=== PATIENT | female | born 1980 | race Caucasian/White ===

== ENCOUNTER 2018-09-28 12:20 | Emergency (ER) | payer BC, OTHER ==
--- OUTSIDE RECORDS SUMMARY | 2018-09-28 13:07 | XMS REPORT | Continuity of Care Document ---
:1980 External Reference #:[id number] Author Name Sheldon Moss N.P. Address [address] [facility] [address] [place] [address] Care Team Providers Name Role Phone Malathi Taylor MD Care Team Information Store Gift Wrap Associate Unavailable Payers Date Identification Numbers Payment Provider Subscriber Policy Number: [id number] [facility] [employer] Christopher Nicolas PayID: [id number] [address] [address] [place] [address] Expires: 2017 Policy Number: [id number] [employer] Christopher Nicolas PayID: [id number] [address] [place] [address] Advance Directives Description No Information Available Problems Active Problems Provider Date Morbid obesity Ramses Lilly [employer] Onset: 04/18/2015 Family History Date Family Member(s) Observation Comments Father No Current Problems Father 56 Mother due to Drug Overdose () - 2010 Mother due to At Age 51 () First Son No Current Problems First Son 11 First Brother No Current Problems First Brother 33 First Sister No Current Problems First Sister 24 Social History Type Date Description Comments Sex Unknown Marital Status Legal Status: ETOH Use Rarely consumes alcohol Tobacco Use Start: Unknown Patient has never smoked Smoking Status Reviewed: 12/13/16 Patient has never smoked Allergies, Adverse Reactions, Alerts Active Allergies Reaction Severity Comments Date Penicillins 06/04/2014 Medications Active Medications SIG Qnty Indications Ordering Date Provider Phendimetrazine 1 tab by mouth 90tabs E66.09 Malathi Taylor 09/19/2018 Tartrate three times a day Rula Boyle 35mg Tablets as needed Medical Compression wear compression 2units R60.0 [facility] Stockings/Female/15-20 stockings for 12hr M., M.D. MMHG/Knee/MD/Short per day and remove Misc for 12 hours. Vitamin D take 1 capsule by 1caps E55.9 [facility] leslye 09/10/2018 (Ergocalciferol) mouth Once A Month M., M.D. On The First [id number] Capsules Fenofibrate 1 by mouth every 90tabs E78.2 [facility] 09/10/2018 145mg Tablets day M., M.D. Xanax 1 tab by mouth 90tabs F41.9 [facility] 09/05/2018 0.25mg Tablets three times a day M., M.D. as needed for anxiety Cyclobenzaprine HCL 1 tab by mouth 90tabs M54.5 [facility] 08/20/2018 10mg three times a day M., M.D. Tablets as needed for muscle spasms M62.830 Phentermine HCL 1 tab by mouth 60tabs E66.09 Brandon, leslye Boyle, 06/05/2018 37.5mg twice a day M.D. Tablets Citalopram Hydrobromide Take One Tablet By 90tabs F41.9 BrandonMalathi crowe, 05/01/2018 Mouth Once Daily M.D. 20mg Tablets as Needed Citalopram Hydrobromide Take One Tablet By 90tabs F41.9 BrandonMalathi crowe, 03/06/2018 Mouth Once Daily M.D. 40mg Tablets Zolpidem Tartrate take 1 tablet by 30tabs F41.9 Brandon, leslye Boyle, 2017 10mg mouth at bedtime M.D. Tablets *maximum of one tablet daily* Anucort-HC [address] of rectum 24units BrandonMalathi marroquin, 06/21/2017 25mg Suppository twice a day as M.D. needed Sumatriptan Succinate 1 tab three times 14tabs G43.009 BrandonMalathi crowe, 100mg a day as needed M.D. Tablets Naproxen take 1 tablet by 60tabs [facility] 07/25/2016 500mg Tablets mouth twice a day M.D. as needed History Medications Buspirone HCL 1 tab by mouth 60tabs F41.9 [facility], [facility] 08/05/2018 - 15mg twice a day M., M.D. 09/04/2018 Tablets Bontril PDM 1 tab by mouth 90tabs E66.09 [facility], [facility] 05/22/2018 - 35mg three times a M., M.D. 06/05/2018 Tablets day Citalopram 1 by mouth every 30tabs F41.9 [facility], [facility] 01/24/2018 - Hydrobromide day M., M.D. 03/06/2018 20mg Tablets Citalopram 1 tab by mouth 30tabs F41.9 [facility], [facility] 01/10/2018 - Hydrobromide every day M., M.D. 01/24/2018 10mg Tablets Phentermine HCL take one tablet 60tabs K21.9 [facility] 09/13/2017 - 37.5mg by mouth two M., M.D. 05/22/2018 Tablets times daily *maximum of two tablets daily* R53.81 E66.09 Bontril PDM 1-2 tab by 90tabs E66.09 [facility] 10/12/2016 - 35mg mouth three M.D. 09/13/2017 Tablets times a day Phentermine HCL 1 tab by mouth 60tabs Z68.33 [facility] Natasha, 09/14/2016 - 37.5mg twice a day M.D. 10/12/2016 Tablets R53.81 E66.09 Bontril PDM 2 tab by mouth 180tabs Z68.33 [facility] ., 06/15/2016 - 35mg three times a M.D. 09/14/2016 Tablets day R53.81 E66.09 Phentermine HCL 1 tab by mouth 60tabs Z68.33 [facility] Natasha, 03/16/2016 - 37.5mg twice a day M.D. 06/15/2016 Tablets R53.81 E66.09 Bontril PDM 2 tab by mouth 180tabs Z68.33 [facility], [facility] 06/24/2015 - 35mg three times a M.D. 03/16/2016 Tablets day R53.81 E66.09 Ambien 1-2 tab by mouth 45tabs G47.00 [facility], [facility] 06/24/2015 - 10mg Tablets every night as M., M.D. 01/10/2018 needed Phentermine HCL 1 tab by mouth 60tabs Z68.33 [facility], [facility] 06/16/2015 - 37.5mg twice a day M., M.D. 06/24/2015 Tablets E66.09 Trazodone HCL 1-2 tab by mouth 60tabs G47.00 [facility], [facility] 06/16/2015 - 50mg at bedtime M., M.D. 06/24/2015 Tablets Bontril PDM 2 tab by mouth 180tabs Z68.33 [facility] 06/04/2014 - 35mg three times a day M., M.D. 06/16/2015 Tablets E66.09 Immunizations CPT Code Status Date Vaccine Reaction Lot # U-[id number] Given 02/01/2018 Influenza,Unspecified [id number] Given 02/04/2015 Flu Vaccine [id number] Given 02/23/2014 Flu Vaccine Pt received Flu Vaccine at her Pharmacy. Vital Signs Date Vital Result Comment 09/19/2018 2:53pm BP Systolic 124 mmHg BP Diastolic 80 mmHg Height 63.5 inches 5'3.50" Weight 226.00 lb BMI (Body Mass Index) 39.4 kg/m2 Heart Rate 95 /min Respiratory Rate 16 /min 09/10/2018 8:46am BP Systolic 126 mmHg BP Diastolic 70 mmHg Height 63.5 inches 5'3.50" Weight 226.00 lb BMI (Body Mass Index) 39.4 kg/m2 Heart Rate 105 /min Respiratory Rate 18 /min 09/05/2018 8:40am BP Systolic 118 mmHg BP Diastolic 70 mmHg Height 63.5 inches 5'3.50" Weight 220.00 lb BMI (Body Mass Index) 38.4 kg/m2 Heart Rate 108 /min Respiratory Rate 16 /min 08/05/2018 8:27am BP Systolic 128 mmHg BP Diastolic 70 mmHg Height 63.5 inches 5'3.50" Weight 205.00 lb BMI (Body Mass Index) 35.7 kg/m2 Heart Rate 86 /min Respiratory Rate 18 /min 07/08/2018 8:31am BP Systolic 128 mmHg BP Diastolic 78 mmHg Height 63.5 inches 5'3.50" Weight 200.00 lb BMI (Body Mass Index) 34.9 kg/m2 Heart Rate 85 /min Respiratory Rate 16 /min 06/05/2018 8:15am BP Systolic 128 mmHg BP Diastolic 72 mmHg Height 63.5 inches 5'3.50" Weight 190.00 lb BMI (Body Mass Index) 33.1 kg/m2 Heart Rate 92 /min Respiratory Rate 16 /min 05/01/2018 8:29am BP Systolic 118 mmHg BP Diastolic 68 mmHg Height 63.5 inches 5'3.50" Weight 185.00 lb BMI (Body Mass Index) 32.3 kg/m2 Heart Rate 102 /min Respiratory Rate 16 /min 04/01/2018 8:29am BP Systolic 118 mmHg BP Diastolic 72 mmHg Height 63.5 inches 5'3.50" Weight 190.00 lb BMI (Body Mass Index) 33.1 kg/m2 Heart Rate 83 /min Respiratory Rate 16 /min 03/06/2018 8:11am BP Systolic 124 mmHg BP Diastolic 70 mmHg Height 63.5 inches 5'3.50" Weight 190.00 lb BMI (Body Mass Index) 33.1 kg/m2 Heart Rate 89 /min Respiratory Rate 16 /min 01/24/2018 8:23am BP Systolic 124 mmHg BP Diastolic 67 mmHg Height 63.5 inches 5'3.50" Weight 186.00 lb BMI (Body Mass Index) 32.4 kg/m2 Heart Rate 79 /min Respiratory Rate 16 /min 01/10/2018 8:19am BP Systolic 124 mmHg BP Diastolic 87 mmHg Height 63.5 inches 5'3.50" Weight 189.00 lb BMI (Body Mass Index) 33.0 kg/m2 Heart Rate 74 /min Respiratory Rate 16 /min 12/11/2017 8:02am BP Systolic 110 mmHg BP Diastolic 72 mmHg Height 63.5 inches 5'3.50" Weight 191.00 lb BMI (Body Mass Index) 33.3 kg/m2 Heart Rate 42 /min Respiratory Rate 16 /min 11/11/2017 8:06am BP Systolic 118 mmHg BP Diastolic 70 mmHg Height 63.5 inches 5'3.50" Weight 187.31 lb BMI (Body Mass Index) 32.7 kg/m2 Heart Rate 101 /min Respiratory Rate 16 /min 10/14/2017 8:07am BP Systolic 118 mmHg BP Diastolic 70 mmHg Height 63.5 inches 5'3.50" Weight 195.00 lb BMI (Body Mass Index) 34.0 kg/m2 Heart Rate 83 /min Respiratory Rate 18 /min 09/13/2017 8:03am BP Systolic 110 mmHg BP Diastolic 72 mmHg Height 63.5 inches 5'3.50" Weight 196.00 lb BMI (Body Mass Index) 34.2 kg/m2 Heart Rate 90 /min Respiratory Rate 18 /min 08/12/2017 8:06am BP Systolic 126 mmHg BP Diastolic 70 mmHg Height 63.5 inches 5'3.50" Weight 195.00 lb BMI (Body Mass Index) 34.0 kg/m2 Heart Rate 67 /min Respiratory Rate 18 /min 07/15/2017 8:04am BP Systolic 125 mmHg BP Diastolic 78 mmHg Height 63.5 inches 5'3.50" Weight 193.00 lb BMI (Body Mass Index) 33.6 kg/m2 Heart Rate 72 /min Respiratory Rate 18 /min 06/12/2017 8:28am BP Systolic 118 mmHg BP Diastolic 70 mmHg Height 63.5 inches 5'3.50" Weight 189.00 lb BMI (Body Mass Index) 33.0 kg/m2 Heart Rate 68 /min Respiratory Rate 18 /min 05/10/2017 8:40am BP Systolic 118 mmHg BP Diastolic 72 mmHg Height 63.5 inches 5'3.50" Weight 189.00 lb BMI (Body Mass Index) 33.0 kg/m2 Heart Rate 84 /min Respiratory Rate 16 /min 04/12/2017 8:33am BP Systolic 110 mmHg BP Diastolic 62 mmHg Height 63.5 inches 5'3.50" Weight 200.00 lb BMI (Body Mass Index) 34.9 kg/m2 Heart Rate 79 /min Respiratory Rate 18 /min 02/11/2017 8:35am BP Systolic 110 mmHg BP Diastolic 68 mmHg Height 63.5 inches 5'3.50" Weight 194.00 lb BMI (Body Mass Index) 33.8 kg/m2 Heart Rate 81 /min Respiratory Rate 16 /min 01/11/2017 8:31am BP Systolic 126 mmHg BP Diastolic 72 mmHg Height 63.5 inches 5'3.50" Weight 188.00 lb BMI (Body Mass Index) 32.8 kg/m2 Heart Rate 88 /min Respiratory Rate 16 /min 12/13/2016 8:25am BP Systolic 100 mmHg BP Diastolic 62 mmHg Height 63.5 inches 5'3.50" Weight 190.00 lb BMI (Body Mass Index) 33.1 kg/m2 Heart Rate 83 /min Respiratory Rate 16 /min 11/12/2016 8:33am BP Systolic 98 mmHg BP Diastolic 60 mmHg Height 63.5 inches 5'3.50" Weight 194.00 lb BMI (Body Mass Index) 33.8 kg/m2 Heart Rate 89 /min Respiratory Rate 16 /min 10/12/2016 11:25am BP Systolic 102 mmHg BP Diastolic 62 mmHg Height 63.5 inches 5'3.50" Weight 197.00 lb BMI (Body Mass Index) 34.3 kg/m2 Heart Rate 64 /min Respiratory Rate 16 /min 09/14/2016 8:31am BP Systolic 102 mmHg BP Diastolic 60 mmHg Height 63.5 inches 5'3.50" Weight 194.00 lb BMI (Body Mass Index) 33.8 kg/m2 Heart Rate 84 /min Respiratory Rate 16 /min 08/16/2016 4:11pm BP Systolic 120 mmHg BP Diastolic 72 mmHg Height 63.5 inches 5'3.50" Weight 193.00 lb BMI (Body Mass Index) 33.6 kg/m2 Heart Rate 82 /min Respiratory Rate 18 /min 07/16/2016 8:40am BP Systolic 115 mmHg BP Diastolic 78 mmHg Height 63.5 inches 5'3.50" Weight 195.00 lb BMI (Body Mass Index) 34.0 kg/m2 Heart Rate 80 /min Respiratory Rate 18 /min 06/15/2016 8:32am BP Systolic 118 mmHg BP Diastolic 72 mmHg Height 63.5 inches 5'3.50" Weight 191.00 lb BMI (Body Mass Index) 33.3 kg/m2 Heart Rate 73 /min Respiratory Rate 18 /min 05/18/2016 8:20am BP Systolic 110 mmHg BP Diastolic 70 mmHg Height 63.5 inches 5'3.50" Weight 189.00 lb BMI (Body Mass Index) 33.0 kg/m2 Heart Rate 95 /min Respiratory Rate 18 /min 04/17/2016 8:29am BP Systolic 118 mmHg BP Diastolic 68 mmHg Weight 193.00 lb Heart Rate 62 /min Respiratory Rate 18 /min 03/16/2016 4:36pm BP Systolic 108 mmHg BP Diastolic 82 mmHg Height 63.5 inches 5'3.50" Weight 186.00 lb BMI (Body Mass Index) 32.4 kg/m2 Heart Rate 74 /min Respiratory Rate 16 /min 02/17/2016 8:29am BP Systolic 114 mmHg BP Diastolic 64 mmHg Height 63.5 inches 5'3.50" Weight 191.00 lb BMI (Body Mass Index) 33.3 kg/m2 Heart Rate 89 /min Respiratory Rate 20 /min 01/17/2016 11:17am BP Systolic 116 mmHg BP Diastolic 68 mmHg Height 63.5 inches 5'3.50" Weight 193.00 lb BMI (Body Mass Index) 33.6 kg/m2 Heart Rate 76 /min Respiratory Rate 20 /min 12/16/2015 8:33am BP Systolic 118 mmHg BP Diastolic 68 mmHg Height 63.5 inches 5'3.50" Weight 186.00 lb BMI (Body Mass Index) 32.4 kg/m2 Heart Rate 84 /min Respiratory Rate 20 /min 11/16/2015 2:01pm BP Systolic 118 mmHg BP Diastolic 64 mmHg Height 63.5 inches 5'3.50" Weight 187.00 lb BMI (Body Mass Index) 32.6 kg/m2 Heart Rate 78 /min Respiratory Rate 20 /min 10/17/2015 8:42am BP Systolic 124 mmHg BP Diastolic 76 mmHg Height 63.5 inches 5'3.50" Weight 187.00 lb BMI (Body Mass Index) 32.6 kg/m2 Heart Rate 74 /min Respiratory Rate 19 /min 09/16/2015 8:39am BP Systolic 111 mmHg BP Diastolic 77 mmHg Height 63.5 inches 5'3.50" Weight 193.00 lb BMI (Body Mass Index) 33.6 kg/m2 Heart Rate 75 /min Respiratory Rate 18 /min 08/19/2015 9:25am BP Systolic 111 mmHg BP Diastolic 73 mmHg Height 63.5 inches 5'3.50" Weight 195.00 lb BMI (Body Mass Index) 34.0 kg/m2 Heart Rate 65 /min Respiratory Rate 18 /min 07/21/2015 8:59am BP Systolic 115 mmHg BP Diastolic 74 mmHg Height 63.5 inches 5'3.50" Weight 197.00 lb BMI (Body Mass Index) 34.3 kg/m2 Heart Rate 75 /min Body Temperature 98.2 F Respiratory Rate 18 /min 06/24/2015 2:02pm BP Systolic 117 mmHg BP Diastolic 82 mmHg Height 63.5 inches 5'3.50" Weight 199.00 lb BMI (Body Mass Index) 34.7 kg/m2 Heart Rate 101 /min Body Temperature 96.8 F Respiratory Rate 18 /min 06/16/2015 11:30am BP Systolic 113 mmHg BP Diastolic 79 mmHg Height 63.5 inches 5'3.50" Weight 198.00 lb BMI (Body Mass Index) 34.5 kg/m2 Heart Rate 85 /min Respiratory Rate 18 /min 05/20/2015 8:43am BP Systolic 106 mmHg BP Diastolic 76 mmHg Height 63.5 inches 5'3.50" Weight 203.00 lb BMI (Body Mass Index) 35.4 kg/m2 Heart Rate 62 /min Respiratory Rate 18 /min 04/15/2015 8:32am BP Systolic 101 mmHg BP Diastolic 74 mmHg Height 63.5 inches 5'3.50" Weight 199.00 lb BMI (Body Mass Index) 34.7 kg/m2 Heart Rate 57 /min Respiratory Rate 18 /min 03/16/2015 8:59am BP Systolic 110 mmHg BP Diastolic 77 mmHg Height 63.5 inches 5'3.50" Weight 195.00 lb BMI (Body Mass Index) 34.0 kg/m2 Heart Rate 78 /min Respiratory Rate 18 /min 02/18/2015 9:24am BP Systolic 112 mmHg BP Diastolic 78 mmHg Height 63.5 inches 5'3.50" Weight 200.00 lb BMI (Body Mass Index) 34.9 kg/m2 Heart Rate 64 /min Respiratory Rate 18 /min 01/18/2015 11:30am BP Systolic 110 mmHg BP Diastolic 70 mmHg Height 63.5 inches 5'3.50" Weight 187.00 lb BMI (Body Mass Index) 32.6 kg/m2 Heart Rate 66 /min Respiratory Rate 15 /min 12/14/2014 8:36am BP Systolic 108 mmHg BP Diastolic 75 mmHg Height 63.5 inches 5'3.50" Weight 188.00 lb BMI (Body Mass Index) 32.8 kg/m2 Heart Rate 73 /min Respiratory Rate 16 /min 11/15/2014 10:44am BP Systolic 102 mmHg BP Diastolic 70 mmHg Height 63.5 inches 5'3.50" Weight 194.00 lb BMI (Body Mass Index) 33.8 kg/m2 Heart Rate 72 /min Respiratory Rate 16 /min 10/05/2014 11:34am BP Systolic 123 mmHg BP Diastolic 85 mmHg Height 63.5 inches 5'3.50" Weight 192.00 lb BMI (Body Mass Index) 33.5 kg/m2 Heart Rate 87 /min Respiratory Rate 16 /min 09/01/2014 4:28pm BP Systolic 114 mmHg BP Diastolic 75 mmHg Height 63.5 inches 5'3.50" Weight 188.00 lb BMI (Body Mass Index) 32.8 kg/m2 Heart Rate 76 /min Respiratory Rate 16 /min 07/30/2014 8:35am BP Systolic 106 mmHg BP Diastolic 74 mmHg Height 63.5 inches 5'3.50" Weight 188.00 lb BMI (Body Mass Index) 32.8 kg/m2 Heart Rate 59 /min Respiratory Rate 15 /min 07/02/2014 8:49am BP Systolic 115 mmHg BP Diastolic 83 mmHg Height 63.5 inches 5'3.50" Weight 183.00 lb BMI (Body Mass Index) 31.9 kg/m2 Heart Rate 99 /min Respiratory Rate 15 /min 06/04/2014 10:50am BP Systolic 121 mmHg BP Diastolic 82 mmHg Height 63.5 inches 5'3.50" Weight 194.00 lb BMI (Body Mass Index) 33.8 kg/m2 Heart Rate 65 /min Respiratory Rate 16 /min Results Test Date Facility Test Result H/L Range Note Laboratory test 09/05/2018 [facility] 25 Hydroxy 17 ng/mL Low (31-100) 1 finding 113 [facility] Vit D @ (047)- - TSH,Ultrasensitive @ 1.300 mIU/L (0.360-4.170) Free Thyroxine @ 0.86 ng/dL (0.76-1.46) Hemoglobin A1c 09/05/2018 [facility] Hemoglobin A1c @ 5.1 % (4.0-6.0) 2 113 [facility] (755)- - Est Average Glucose 100 mg/dL CBC With Diff 09/05/2018 [facility] WBC 6.0 10*3/uL (4.1-11.0) 113 [facility] ANTHON[facility] (607)- - RBC 4.58 10*6/uL (4.00-5.40) HGB 12.9 g/dL (12.0-16.0) HCT 38.7 % (36.0-47.0) MCV 84.5 fL (80.0-95.0) MCH 28.1 pg (27.0-32.0) MCHC 33.3 g/dL (32.0-36.0) RDW 13.8 % (10.5-14.5) PLT 222 10*3/uL (150-450) MPV 8.3 fL (7.1-10.7) Neut % 68.1 % (35.0-75.0) Lymph % 25.2 % (16.0-52.0) [place] % 4.7 % (0.0-8.0) Eos % 1.5 % (0.0-5.0) Baso % 0.5 % (0.0-4.0) Neut # 4.1 10*3/uL (1.8-7.7) Lymph # 1.5 10*3/uL (1.2-4.8) [place] # 0.3 10*3/uL (0.0-0.8) Eos # 0.1 10*3/uL (0.0-0.5) Baso # 0.0 10*3/uL (0.0-0.2) CMP 09/05/2018 [facility] Sodium 139 mmol/L (136-145) [facility] (607)- - Potassium 4.2 mmol/L (3.6-5.2) Chloride 108 mmol/L (100-108) Co2 24 mmol/L (22-31) Anion Gap 7 mmol/L (7-16) Urea Nitrogen 14 mg/dL (7-24) Creatinine 0.90 mg/dL (0.60-1.00) BUN/Creat Ratio 15.6 RATIO (10.0-20.0) Glucose 94 mg/dL (70-99) Calcium 8.6 mg/dL (8.4-10.2) Total Protein 7.1 g/dL (6.4-8.2) Albumin 3.4 g/dL Low (3.5-4.6) Globulin 3.7 g/dL (2.7-4.3) Alb/Glob Ratio 0.9 RATIO Alkaline Phosphatase 96 U/L (45-117) Bilirubin,Total 0.3 mg/dL (0.0-1.0) Ast (Sgot) 16 U/L (11-39) Alt (SGPT) 25 U/L (12-78) GFR >60 ml/min/1.73m2 (>59) GFR ( Amer) >60 ml/min/1.73m2 (>59) GFR Interpretation <SEE NOTE> 3 Laboratory test 09/05/2018 [facility] Uric Acid 5.1 mg/dL (2.6-6.0) finding 113 [facility] (607)- - Rheumatoid Factor @ <15 IU/mL (0-15) C Reactive Protein @ 1.1 mg/dL High (0.0-0.5) Esr 23 mm/h High (0-20) Lipid 09/05/2018 [facility] Cholesterol @ 189 mg/dL (0-200) 113 [employer] [facility] (607)- - Triglyceride @ 248 mg/dL High (30-200) HDL Cholesterol @ 53 mg/dL (>40) 4 Chol/HDL Ratio 3.6 RATIO 5 LDL Chol (Calc) 86 mg/dL (<130) 6 Ethyl Glucuronide 01/24/2018 [facility] Ethyl Glucuronide Negative ng/mL N 500 7 PDF SEE IMAGE Laboratory test finding 01/24/2018 [facility] Tramadol Negative ng/mL N 5 8 Gabapentin Negative ng/mL N 100 9 Zolpidem 22 Positive Cons <SEE NOTE> ng/mL N 10 10 Phentermine Positive >5000 C <SEE NOTE> ng/mL N 50 11 Citalopram/Escitalopram Positive >500 Co <SEE NOTE> ng/mL N 5 12 Urine DRG SCR 01/24/2018 [facility] Amphetamine NEGATIVE N 1000 (12PNL-PM) Barbiturate NEGATIVE N 200 Benzodiazepine NEGATIVE N 200 Buprenorphine NEGATIVE N 15 Cannabinoid NEGATIVE N 50 Cocaine NEGATIVE N 300 Methadone NEGATIVE N 300 Opiate NEGATIVE N 300 Oxycodone NEGATIVE N 300 Phencyclidine NEGATIVE N 25 13 Cocaine Panel By 01/24/2018 [facility] Benzoylecgonine Negative ng/mL N 50 14 LC/MS/MS (Cocaine) Amphetamine Panel 01/24/2018 [facility] Amphetamine Negative ng/ mL N 50 By LC/MS/MS Methamphetamine Negative ng/mL N 50 Mdma (Ecstasy) Negative ng/mL N 50 Mda Negative ng/ml N 50 Mdea Negative ng/mL N 50 15 Specimen Validity 01/24/2018 [facility] Creatinine, Urine 99 mg/ dL N >20 Panel Color YELLOW N Yellow pH 6.6 N 5.0-8.0 Specific [place] 1.022 N 1.001-1.035 16 Opiates Panel By 01/24/2018 [facility] 6-Qamar (Heroin Negative ng/ mL N 5 LC/MS/MS Metabolite) Codeine Negative ng/mL N 50 Hydrocodone Negative ng/mL N 50 Hydromorphone Negative ng/mL N 50 Morphine Negative ng/mL N 50 Norhydrocodone Negative ng/mL N 50 Noroxycodone Negative ng/mL N 50 Noroxymorphone Negative ng/mL N 50 Oxycodone Negative ng/mL N 50 Oxymorphone Negative ng/mL N 50 17 Methadone Panel By 01/24/2018 [facility] Eddp Negative ng/mL N 10 LC/MS/MS Methadone Negative ng/mL N 10 18 Buprenorphine Panel By 01/24/2018 [facility] Buprenorphine Negative ng/mL N 5 LC/MS/MS Naloxone Negative ng/mL N 10 Norbuprenorphine Negative ng/mL N 5 19 Benzodiazepines 01/24/2018 [facility] 2-Hydroxyethylflurazepam Negative N 10 Panel By LC/MS/MS ng/mL 7-Aminoclonazepam Negative ng/mL N 10 Alprazolam Negative ng/mL N 10 Chlordiazepoxide Negative ng/mL N 10 Clonazepam Negative ng/mL N 10 Desalkylflurazepam Negative ng/mL N 10 Diazepam Negative ng/mL N 10 Lorazepam Negative ng/mL N 10 Midazolam Negative ng/ml N 10 Nordiazepam Negative ng/mL N 10 Alpha-hydroxyalprazolam Negative ng/mL N 10 Alpha-Hydroxymidazolam Negative ng/mL N 10 Alpha-Hydroxytriazolam Negative ng/mL N 10 Oxazepam Negative ng/mL N 10 Prazepam Negative ng/mL N 10 Temazepam Negative ng/mL N 10 20 Barbiturates Panel By 01/24/2018 [facility] Butalbital Negative ng/mL N 100 LC/MS/MS Pentobarbital Negative ng/mL N 100 Phenobarbital Negative ng/mL N 100 Secobarbital Negative ng/mL N 100 21 Antidepressants Panel 01/24/2018 [facility] Amitriptyline Negative ng/mL N 20 By LC/MS/MS Clomipramine Negative ng/mL N 20 Desipramine Negative ng/mL N 20 Doxepin Negative ng/mL N 20 Fluoxetine Negative ng/mL N 20 Imipramine Negative ng/mL N 20 Norclomipramine Negative ng/mL N 20 Nordoxepin Negative ng/mL N 20 Nortriptyline Negative ng/mL N 20 Sertraline Negative ng/mL N 20 Trimipramine Negative ng/mL N 20 22 Urine Drug [place] 01/24/2018 [facility] [id number] Negative ng/mL N 5 23 Buprenorphine Panel 01/10/2018 [facility] Buprenorphine Negative ng/mL N 5 24 By LC/MS/MS Naloxone Negative ng/mL N 10 Norbuprenorphine Negative ng/mL N 5 25 Methadone Panel By 01/10/2018 [facility] Eddp Negative ng/mL N 10 LC/MS/MS Methadone Negative ng/mL N 10 26 Opiates Panel By 01/10/2018 [facility] 6-Qamar (Heroin Negative ng/ mL N 5 LC/MS/MS Metabolite) Codeine Negative ng/mL N 50 Hydrocodone Negative ng/mL N 50 Hydromorphone Negative ng/mL N 50 Morphine Negative ng/mL N 50 Norhydrocodone Negative ng/mL N 50 Noroxycodone Negative ng/mL N 50 Noroxymorphone Negative ng/mL N 50 Oxycodone Negative ng/mL N 50 Oxymorphone Negative ng/mL N 50 27 Specimen Validity 01/10/2018 [facility] Creatinine, Urine 236 mg/ dL N >20 Panel Color YELLOW N Yellow pH 5.5 N 5.0-8.0 Specific [place] 1.031 N 1.001-1.035 28 Amphetamine Panel By 01/10/2018 [facility] Amphetamine Negative ng/mL N 50 LC/MS/MS Methamphetamine Negative ng/mL N 50 Mdma (Ecstasy) Negative ng/mL N 50 Mda Negative ng/ml N 50 Mdea Negative ng/mL N 50 29 Cocaine Panel 01/10/2018 [facility] Benzoylecgonine Negative N 50 30 By LC/MS/MS (Cocaine) ng/mL Urine DRG SCR 01/10/2018 [facility] Amphetamine POSITIVE Abnormal 1000 (12PNL-PM) Barbiturate NEGATIVE N 200 Benzodiazepine NEGATIVE N 200 Buprenorphine NEGATIVE N 15 Cannabinoid NEGATIVE N 50 Cocaine NEGATIVE N 300 Methadone NEGATIVE N 300 Opiate NEGATIVE N 300 Oxycodone NEGATIVE N 300 Phencyclidine NEGATIVE N 25 31 Laboratory test finding 01/10/2018 [facility] Tramadol Negative ng/mL N 5 32 Gabapentin Negative ng/mL N 100 33 Phentermine Positive >5000 C <SEE NOTE> ng/mL N 50 34 Ethyl Glucuronide 01/10/2018 [facility] Ethyl Glucuronide Negative ng/mL N 500 PDF SEE IMAGE Laboratory test 01/10/2018 [facility] Zolpidem 56 Positive N 10 35 finding Cons <SEE NOTE> ng/mL Lipid 01/10/2018 [facility] Cholesterol @ 174 mg/dL (0-200) 113 [facility] (607)- - Triglyceride @ 128 mg/dL (30-200) HDL Cholesterol @ 52 mg/dL (>40) 36 Chol/HDL Ratio 3.3 RATIO 37 LDL Chol (Calc) 96 mg/dL (<130) 38 CMP 01/10/2018 [facility] Sodium 139 mmol/L (136-145) 113 [employer] (607)- - Potassium 4.2 mmol/L (3.6-5.2) Chloride 106 mmol/L (100-108) Co2 23 mmol/L (22-31) Anion Gap 10 mmol/L (7-16) Urea Nitrogen 12 mg/dL (7-24) Creatinine 0.99 mg/dL (0.60-1.00) BUN/Creat Ratio 12.1 RATIO (10.0-20.0) Glucose 79 mg/dL (70-99) Calcium 9.2 mg/dL (8.4-10.2) Total Protein 7.4 g/dL (6.4-8.2) Albumin 3.9 g/dL (3.5-4.6) Globulin 3.5 g/dL (2.7-4.3) Alb/Glob Ratio 1.1 RATIO Alkaline Phosphatase 72 U/L (45-117) Bilirubin,Total 0.7 mg/dL (0.0-1.0) Ast (Sgot) 12 U/L (11-39) Alt (SGPT) 16 U/L (12-78) GFR >60 ml/min/1.73m2 (>59) GFR ( Amer) >60 ml/min/1.73m2 (>59) GFR Interpretation <SEE NOTE> 39 CBC With Diff 01/10/2018 [facility] WBC 5.9 10*3/uL (4.1-11.0) 113 NAOMI ANTHONY (60)- - RBC 4.87 10*6/uL (4.00-5.40) HGB 13.8 g/dL (12.0-16.0) HCT 41.0 % (36.0-47.0) MCV 84.3 fL (80.0-95.0) MCH 28.4 pg (27.0-32.0) MCHC 33.7 g/dL (32.0-36.0) RDW 13.6 % (10.5-14.5) PLT 191 10*3/uL (150-450) MPV 9.4 fL (7.1-10.7) Neut % 64.6 % (35.0-75.0) Lymph % 29.5 % (16.0-52.0) [place] % 4.7 % (0.0-8.0) Eos % 0.6 % (0.0-5.0) Baso % 0.6 % (0.0-4.0) Neut # 3.8 10*3/uL (1.8-7.7) Lymph # 1.8 10*3/uL (1.2-4.8) [place] # 0.3 10*3/uL (0.0-0.8) Eos # 0.0 10*3/uL (0.0-0.5) Baso # 0.0 10*3/uL (0.0-0.2) Laboratory test 01/10/2018 [facility] Vitamin B12 @ 268 pg/mL (193-986 ) finding 113 NAOMI ANTHONY (400)- - Folate @ 5.0 ng/mL (3.1-17.5) Hemoglobin A1c 01/10/2018 [facility] Hemoglobin A1c @ 5.2 % (4.0-6.0) 40 113 NAOMI ANTHONY (022)- - Est Average Glucose 103 mg/dL Laboratory test 01/10/2018 [facility] TSH,Ultrasensitive 0.780 (0.360- 4.170) finding 113 INNOVATION RAJ @ mIU/L (607)- - Benzodiazepines 01/10/2018 [facility] 2-Hydroxyethylflura Negative N 10 Panel By LC/MS/MS zepam ng/mL 7-Aminoclonazepam Negative ng/mL N 10 Alprazolam Negative ng/mL N 10 Chlordiazepoxide Negative ng/mL N 10 Clonazepam Negative ng/mL N 10 Desalkylflurazepam Negative ng/mL N 10 Diazepam Negative ng/mL N 10 Lorazepam Negative ng/mL N 10 Midazolam Negative ng/ml N 10 Nordiazepam Negative ng/mL N 10 Alpha-hydroxyalprazolam Negative ng/mL N 10 Alpha-Hydroxymidazolam Negative ng/mL N 10 Alpha-Hydroxytriazolam Negative ng/mL N 10 Oxazepam Negative ng/mL N 10 Prazepam Negative ng/mL N 10 Temazepam Negative ng/mL N 10 41 Barbiturates Panel By 01/10/2018 [facility] Butalbital Negative ng/mL N 100 LC/MS/MS Pentobarbital Negative ng/mL N 100 Phenobarbital Negative ng/mL N 100 Secobarbital Negative ng/mL N 100 42 Antidepressants Panel 01/10/2018 [facility] Amitriptyline Negative ng/mL N 20 By LC/MS/MS Clomipramine Negative ng/mL N 20 Desipramine Negative ng/mL N 20 Doxepin Negative ng/mL N 20 Fluoxetine Negative ng/mL N 20 Imipramine Negative ng/mL N 20 Norclomipramine Negative ng/mL N 20 Nordoxepin Negative ng/mL N 20 Nortriptyline Negative ng/mL N 20 Sertraline Negative ng/mL N 20 Trimipramine Negative ng/mL N 20 43 Urine Drug 01/10/2018 [facility] [id number] Negative N 5 44 [place] ng/mL Laboratory test 01/10/2018 [facility] 25 Hydroxy Vit D @ 31 ng/mL (31- 10 45 finding 113 INNOVATION RAJ 0) (607)- - Esr 20 mm/h (0-20) Iron Panel 01/10/2018 [facility] Iron,Total @ 90 g/dL (35-150) 113 INNOVATION RAJ (607)- - Uibc @ 220 g/dL (130-375) Tibc @ 310 g/dL (250-450) % Saturation 29 % (12-50) Basic Metabolic Panel 08/16/2016 [facility] Sodium 134 mmol/L N 133- 145 Potassium 3.8 mmol/L N 3.5-5.0 Chloride 102 mmol/L N 101-111 Co2 Carbon Dioxide 25 mmol/L N 22-32 Anion Gap 7 mmol/L N 2-11 Glucose 81 mg/dL N 70-100 Blood Urea Nitrogen 12 mg/dL N 6-24 Creatinine 0.85 mg/dL N 0.51-0.95 BUN/Creatinine Ratio 14.1 N 8-20 Calcium 9.3 mg/dL N 8.6-10.3 Egfr Non- 75.7 N >60 Egfr 97.3 N >60 46 CBC Auto Diff 08/16/2016 [facility] White Blood Count 8.6 10^3/uL N 3.5-10.8 Red Blood Count 4.83 10^6/uL N 4.0-5.4 Hemoglobin 13.3 g/dL N 12.0-16.0 Hematocrit 40 % N 35-47 Mean Corpuscular Volume 83 fL N 80-97 Mean Corpuscular Hemoglobin 28 pg N 27-31 Mean Corpuscular HGB Conc 33 g/dL N 31-36 Red Cell Distribution Width 13 % N 10.5-15 Platelet Count 200 10^3/uL N 150-450 Mean Platelet Volume 10 um3 N 7.4-10.4 Abs Neutrophils 5.6 10^3/uL N 1.5-7.7 Abs Lymphocytes 2.6 10^3/uL N 1.0-4.8 Abs Monocytes 0.3 10^3/uL N 0-0.8 Abs Eosinophils 0 10^3/uL N 0-0.6 Abs Basophils 0 10^3/uL N 0-0.2 Abs Nucleated RBC 0 10^3/uL N Granulocyte % 65.1 % N 38-83 Lymphocyte % 30.5 % N 25-47 Monocyte % 3.8 % N 1-9 Eosinophil % 0.3 % N 0-6 Basophil % 0.3 % N 0-2 Nucleated Red Blood Cells % 0 N Laboratory test 08/16/2016 [facility] Creatinine Random 335.09 mg/dL N 47 finding Urine Laboratory test 07/21/2015 [facility] TSH (Thyroid Stim 0.83 ?IU/mL N 0.34-5. finding Horm) 60 CBC Auto Diff 07/21/2015 [facility] White Blood Count 4.8 10^3/uL N 3.5-10. 8 Red Blood Count 4.40 10^6/uL N 4.0-5.4 Hemoglobin 13.0 g/dL N 12.0-16.0 Hematocrit 40 % N 35-47 Mean Corpuscular Volume 90 fL N 80-97 Mean Corpuscular Hemoglobin 29 pg N 27-31 Mean Corpuscular HGB Conc 33 g/dL N 31-36 Red Cell Distribution Width 13 % N 10.5-15 Platelet Count 195 10^3/uL N 150-450 Mean Platelet Volume 9 um3 N 7.4-10.4 Abs Neutrophils 3.2 10^3/uL N 1.5-7.7 Abs Lymphocytes 1.3 10^3/uL N 1.0-4.8 Abs Monocytes 0.3 10^3/uL N 0-0.8 Abs Eosinophils 0 10^3/uL N 0-0.6 Abs Basophils 0 10^3/uL N 0-0.2 Abs Nucleated RBC 0 10^3/uL N Granulocyte % 65.7 % N 38-83 Lymphocyte % 26.4 % N 25-47 Monocyte % 6.8 % N 1-9 Eosinophil % 0.7 % N 0-6 Basophil % 0.4 % N 0-2 Nucleated Red Blood Cells % 0 N Comp Metabolic Panel 07/21/2015 [facility] Sodium 137 mmol/L N 133- 145 Potassium 4.0 mmol/L N 3.5-5.0 Chloride 103 mmol/L N 101-111 Co2 Carbon Dioxide 26 mmol/L N 22-32 Anion Gap 8 mmol/L N 2-11 Glucose 81 mg/dL N 70-100 Blood Urea Nitrogen 14 mg/dL N 6-24 Creatinine 0.95 mg/dL N 0.51-0.95 BUN/Creatinine Ratio 14.7 N 8-20 Calcium 9.4 mg/dL N 8.6-10.3 Total Protein 7.4 g/dL N 6.4-8.9 Albumin 4.5 g/dL N 3.2-5.2 Globulin 2.9 g/dL N 2-4 Albumin/Globulin Ratio 1.6 N 1-3 Total Bilirubin 0.50 mg/dL N 0.2-1.0 Alkaline Phosphatase 70 U/L N 34-104 Alt 24 U/L N 7-52 Ast 23 U/L N 13-39 Egfr Non- 66.9 N >60 Egfr 86.1 N >60 48 Lipid Profile 07/21/2015 [facility] Triglycerides 124 mg/dL N 49 (Trig/Chol/HDL) Cholesterol 200 mg/dL N 50 HDL Cholesterol 56.5 mg/dL N 51 LDL Cholesterol 119 mg/dL N 52 Glycohemoglobin A1c 03/16/2015 [place] Glycohemoglobin (A1c) 5.3 % 4.2- 6.3 53 eAG 105 mg/dL Laboratory test finding 03/16/2015 [place] Thyroid Stim 0.67 uIU/mL 0.36-3.74 Hormone Comprehensive Metabolic 03/16/2015 [place] Glucose 94 mg/dL 74-106 Panel BUN 16 mg/dL 7-18 Creatinine 0.9 mg/dL 0.6-1.3 Glom Filtration Rate, Estimate >60 mL/min >60 If >60 mL/min >60 54 BUN/Creat 17.7 ratio Sodium 138 mmol/L 136-145 Potassium 3.9 mmol/L 3.5-5.1 Chloride 106 mmol/L 98-107 Carbon Dioxide 26 mmol/L 21-32 Anion Gap 6 mEq/L Low 8-16 Calcium 8.9 mg/dL 8.5-10.1 Total Protein 7.6 g/dL 6.4-8.2 Albumin 4.0 g/dL 3.4-5.0 Globulin 3.6 g/dL 1.9-4.3 Alb/Glob 1.1 ratio Bilirubin,Total 0.4 mg/dL 0.2-1.0 Sgot/Ast 15 U/L 15-37 SGPT/Alt 31 U/L 12-78 Alkaline Phosphatase 78 U/L 45-117 CBC W/Automated Diff 03/16/2015 [place] White Blood Count 6.1 K/uL 3.1- 10.7 Red Blood Count 4.40 M/uL 3.90-5.40 Hemoglobin 13.1 gm/dL 11.6-15.8 Hematocrit 40.2 % 36.0-46.1 Mean Cell Volume 91.4 fl 80.9-99.0 Mean Corpuscular HGB 29.8 pg 25.9-32.7 Mean Corpuscular HGB Conc 32.6 g/dL 30.8-34.3 Platelet Count 217 K/uL 155-360 Red Cell Distri Width SD 42.8 fl 3-47 Red Cell Distri Width %CV 13.3 % 11.7-14.4 Mean Platelet Volume 11.2 fL 8.9-12.4 Neut% 65.2 % 40.4-72.8 Lymph % 27.9 % 17.0-46.1 [place] % 5.9 % 4.3-13.2 Eo% 0.8 % 0.0-6.6 Bas% 0.2 % 0.0-1.1 Neut# 4.00 K/uL 1.0-7.0 Lymph # 1.71 K/uL Low 1.8-7.0 [place] # 0.36 K/uL 0.3-0.9 Eos # 0.05 K/uL 0.0-0.5 Baso # 0.01 K/uL 0.0-0.1 Lipid Profile 06/04/2014 [facility] Triglycerides 238 mg/dL N 55 (Trig/Chol/HDL) Cholesterol 201 mg/dL N 56 HDL Cholesterol 48.7 mg/dL N 57 LDL Cholesterol 105 mg/dL N 58 Laboratory test 06/04/2014 [facility] TSH (Thyroid 1.06 IU/mL N 0.34- 5.60 finding Stimulating Horm) Comp Metabolic 06/04/2014 [facility] Sodium 136 mmol/L N 133-145 Panel Potassium 4.1 mmol/L N 3.5-5.0 Chloride 104 mmol/L N 101-111 Co2 Carbon Dioxide 27 mmol/L N 22-32 Anion Gap 5 mmol/L N 2-11 Glucose 83 mg/dL N 70-100 Blood Urea Nitrogen 16 mg/dL N 6-24 Creatinine 0.87 mg/dL N 0.51-0.95 BUN/Creatinine Ratio 18.4 N 8-20 Calcium 9.6 mg/dL N 8.6-10.3 Total Protein 7.5 g/dL N 6.4-8.9 Albumin 4.6 g/dL N 3.2-5.2 Globulin 2.9 g/dL N 2-4 Albumin/Globulin Ratio 1.6 N 1-3 Total Bilirubin 0.40 mg/dL N 0.2-1.0 Alkaline Phosphatase 61 U/L N 34-104 Alt 11 U/L N 7-52 Ast 13 U/L N 13-39 Egfr Non- 74.5 N >60 Egfr 95.9 N >60 59 CBC Auto Diff 06/04/2014 [facility] White Blood Count 5.9 10^3/uL N 4.8-10.8 Red Blood Count 4.59 10^6/uL N 4.0-5.4 Hemoglobin 13.2 g/dL N 12.0-16.0 Hematocrit 41 % N 35-47 Mean Corpuscular Volume 89 fL N 80-97 Mean Corpuscular Hemoglobin 29 pg N 27-31 Mean Corpuscular HGB Conc 32 g/dL N 31-36 Red Cell Distribution Width 14 % N 10.5-15 Platelet Count 199 10^3/uL N 150-450 Mean Platelet Volume 9 um3 N 7.4-10.4 Abs Neutrophils 3.5 10^3/uL N 1.5-7.7 Abs Lymphocytes 2.0 10^3/uL N 1.0-4.8 Abs Monocytes 0.3 10^3/uL N 0-0.8 Abs Eosinophils 0.1 10^3/uL N 0-0.6 Abs Basophils 0.1 10^3/uL N 0-0.2 Abs Nucleated RBC 0 10^3/uL N Granulocyte % 59.4 % N 38-83 Lymphocyte % 33.3 % N 25-47 Monocyte % 4.7 % N 1-9 Eosinophil % 1.7 % N 0-6 Basophil % 0.9 % N 0-2 Nucleated Red Blood Cells % 0 N 1 A REVIEW OF THE LITERATURE SUGGESTS THE FOLLOWING RANGES FOR THE CLASSIFICATION OF 25-OH VITAMIN D STATUS: VITAMIN D STATUS 25-OH VITAMIN D DEFICIENCY <20 NG/ML INSUFFICIENCY 20-30 NG/ML SUFFICIENCY 31 - 100 NG/ML TOXICITY > 100 NG/ML A PEDIATRIC REFERENCE RANGE HAS NOT BEEN ESTABLISHED USING THIS METHOD. 2 Performed using [employer] immunoassay. Care must be taken when interpreting HbA1c results in patients with a hemoglobin variant or decreased erythrocyte lifespan. Values 5.7 - 6.4% suggest prediabetes. Values >=6.5% are diagnostic for diabetes. REFERENCE: DIABETES CARE 2018: 41(S13-S27). 3 NORMAL KIDNEY FUNCTION OR MILD DISEASE - GFR >OR=60 CHRONIC KIDNEY DISEASE - GFR 15 - 59 RENAL FAILURE - GFR <15 Est. GFR calculation based on the MDRD study equation, which assumes a steady state for creatinine. Est. GFR should not be used for medication dosing. 4 PER NCEP ATP III GUIDELINES: RESULTS LOWER THAN 40 MG/DL ARE SUGGESTIVE OF INCREASED RISK FOR CORONARY ARTERY DISEASE. RESULTS > OR=TO 60 MG/DL ARE CONSIDERED A NEGATIVE RISK FACTOR. 5 INTERPRETATION OF CHOL-HDL RATIO CHD RISK FEMALE MALE VERY HIGH >8.3 >14.3 HIGH 5.6- 8.3 6.7- 14.3 AVERAGE 3.7- 5.6 4.0- 6.7 BELOW AVERAGE 2.5- 3.7 2.7- 4.0 PROTECTED <2.5 <2.7 6 PER NCEP ATP III GUIDELINES: OPTIMAL < 100 NEAR OPTIMAL 100 - 129 BORDERLINE HIGH 130 - 159 HIGH 160 - 189 VERY HIGH > 189 7 Prescribed Medications: Zolpidem (Zolpidem), Phentermine (Phentermine), Citalopram (Citalopram/Escitalopram), NAPROXEN, SUMATRIPTAN 8 Prescribed Medications: Zolpidem (Zolpidem), Phentermine (Phentermine), Citalopram (Citalopram/Escitalopram), NAPROXEN, SUMATRIPTAN 9 Prescribed Medications: Zolpidem (Zolpidem), Phentermine (Phentermine), Citalopram (Citalopram/Escitalopram), NAPROXEN, SUMATRIPTAN 10 22 Positive Consistent The common brand name for Zolpidem is Ambien. Prescribed Medications: Zolpidem (Zolpidem), Phentermine (Phentermine), Citalopram (Citalopram/Escitalopram), NAPROXEN, SUMATRIPTAN 11 Positive >5000 Consistent Prescribed Medications: Zolpidem (Zolpidem), Phentermine (Phentermine), Citalopram (Citalopram/Escitalopram), NAPROXEN, SUMATRIPTAN 12 Positive >500 Consistent The test is not chiral specific. Intake of either Celexa(racemic Citalopram) or Lexapro (Escitalopram) could cause positive result. Prescribed Medications: Zolpidem (Zolpidem), Phentermine (Phentermine), Citalopram (Citalopram/Escitalopram), NAPROXEN, SUMATRIPTAN 13 Prescribed Medications: Zolpidem (Zolpidem), Phentermine (Phentermine), Citalopram (Citalopram/Escitalopram), NAPROXEN, SUMATRIPTAN 14 Prescribed Medications: Zolpidem (Zolpidem), Phentermine (Phentermine), Citalopram (Citalopram/Escitalopram), NAPROXEN, SUMATRIPTAN 15 Prescribed Medications: Zolpidem (Zolpidem), Phentermine (Phentermine), Citalopram (Citalopram/Escitalopram), NAPROXEN, SUMATRIPTAN 16 Prescribed Medications: Zolpidem (Zolpidem), Phentermine (Phentermine), Citalopram (Citalopram/Escitalopram), NAPROXEN, SUMATRIPTAN 17 Prescribed Medications: Zolpidem (Zolpidem), Phentermine (Phentermine), Citalopram (Citalopram/Escitalopram), NAPROXEN, SUMATRIPTAN 18 Prescribed Medications: Zolpidem (Zolpidem), Phentermine (Phentermine), Citalopram (Citalopram/Escitalopram), NAPROXEN, SUMATRIPTAN 19 Prescribed Medications: Zolpidem (Zolpidem), Phentermine (Phentermine), Citalopram (Citalopram/Escitalopram), NAPROXEN, SUMATRIPTAN 20 Prescribed Medications: Zolpidem (Zolpidem), Phentermine (Phentermine), Citalopram (Citalopram/Escitalopram), NAPROXEN, SUMATRIPTAN 21 Prescribed Medications: Zolpidem (Zolpidem), Phentermine (Phentermine), Citalopram (Citalopram/Escitalopram), NAPROXEN, SUMATRIPTAN 22 Prescribed Medications: Zolpidem (Zolpidem), Phentermine (Phentermine), Citalopram (Citalopram/Escitalopram), NAPROXEN, SUMATRIPTAN 23 Prescribed Medications: Zolpidem (Zolpidem), Phentermine (Phentermine), Citalopram (Citalopram/Escitalopram), NAPROXEN, SUMATRIPTAN 24 Prescribed Medications: Phentermine (Phentermine), NAPROXEN, SUMATRIPTAN Prescribed Medications: Zolpidem (Zolpidem), Phentermine (Phentermine), NAPROXEN, SUMATRIPTAN 25 Prescribed Medications: Zolpidem (Zolpidem), Phentermine (Phentermine), NAPROXEN, SUMATRIPTAN 26 Prescribed Medications: Zolpidem (Zolpidem), Phentermine (Phentermine), NAPROXEN, SUMATRIPTAN 27 Prescribed Medications: Zolpidem (Zolpidem), Phentermine (Phentermine), NAPROXEN, SUMATRIPTAN 28 Prescribed Medications: Zolpidem (Zolpidem), Phentermine (Phentermine), NAPROXEN, SUMATRIPTAN 29 Prescribed Medications: Zolpidem (Zolpidem), Phentermine (Phentermine), NAPROXEN, SUMATRIPTAN 30 Prescribed Medications: Zolpidem (Zolpidem), Phentermine (Phentermine), NAPROXEN, SUMATRIPTAN 31 Prescribed Medications: Zolpidem (Zolpidem), Phentermine (Phentermine), NAPROXEN, SUMATRIPTAN 32 Prescribed Medications: Zolpidem (Zolpidem), Phentermine (Phentermine), NAPROXEN, SUMATRIPTAN 33 Prescribed Medications: Zolpidem (Zolpidem), Phentermine (Phentermine), NAPROXEN, SUMATRIPTAN 34 Positive >5000 Consistent Prescribed Medications: Zolpidem (Zolpidem), Phentermine (Phentermine), NAPROXEN, SUMATRIPTAN 35 56 Positive Consistent The common brand name for Zolpidem is Ambien. Prescribed Medications: Zolpidem (Zolpidem), Phentermine (Phentermine), NAPROXEN, SUMATRIPTAN 36 PER NCEP ATP III GUIDELINES: RESULTS LOWER THAN 40 MG/DL ARE SUGGESTIVE OF INCREASED RISK FOR CORONARY ARTERY DISEASE. RESULTS > OR=TO 60 MG/DL ARE CONSIDERED A NEGATIVE RISK FACTOR. 37 INTERPRETATION OF CHOL-HDL RATIO CHD RISK FEMALE MALE VERY HIGH >8.3 >14.3 HIGH 5.6- 8.3 6.7- 14.3 AVERAGE 3.7- 5.6 4.0- 6.7 BELOW AVERAGE 2.5- 3.7 2.7- 4.0 PROTECTED <2.5 <2.7 38 PER NCEP ATP III GUIDELINES: OPTIMAL < 100 NEAR OPTIMAL 100 - 129 BORDERLINE HIGH 130 - 159 HIGH 160 - 189 VERY HIGH > 189 39 NORMAL KIDNEY FUNCTION OR MILD DISEASE - GFR >OR=60 CHRONIC KIDNEY DISEASE - GFR 15 - 59 RENAL FAILURE - GFR <15 Est. GFR calculation based on the MDRD study equation, which assumes a steady state for creatinine. Est. GFR should not be used for medication dosing. 40 Performed using [employer] immunoassay. Care must be taken when interpreting HbA1c results in patients with a hemoglobin variant or decreased erythrocyte lifespan. Values 5.7 - 6.4% suggest prediabetes. Values >=6.5% are diagnostic for diabetes. REFERENCE: DIABETES CARE 2018: 41(S13-S27). 41 Prescribed Medications: Zolpidem (Zolpidem), Phentermine (Phentermine), NAPROXEN, SUMATRIPTAN 42 Prescribed Medications: Zolpidem (Zolpidem), Phentermine (Phentermine), NAPROXEN, SUMATRIPTAN 43 Prescribed Medications: Zolpidem (Zolpidem), Phentermine (Phentermine), NAPROXEN, SUMATRIPTAN 44 Prescribed Medications: Zolpidem (Zolpidem), Phentermine (Phentermine), NAPROXEN, SUMATRIPTAN 45 A REVIEW OF THE LITERATURE SUGGESTS THE FOLLOWING RANGES FOR THE CLASSIFICATION OF 25-OH VITAMIN D STATUS: VITAMIN D STATUS 25-OH VITAMIN D DEFICIENCY <20 NG/ML INSUFFICIENCY 20-30 NG/ML SUFFICIENCY 31 - 100 NG/ML TOXICITY > 100 NG/ML A PEDIATRIC REFERENCE RANGE HAS NOT BEEN ESTABLISHED USING THIS METHOD. 46 Because ethnic data is not always readily available, this report includes an eGFR for both -Americans and non- Americans. The National Kidney Disease Education Program (NKDEP) does not endorse the use of the MDRD equation for patients that are not between the ages of 18 and 70, are , have extremes of body size, muscle mass, or nutritional status, or are non- or non-. According to the National Kidney Foundation, irrespective of diagnosis, the stage of the disease is based on the level of kidney function: Stage Description GFR(mL/min/1.73 m(2)) 1 Kidney damage with normal or decreased GFR 90 2 Kidney damage with mild decrease in GFR 60-89 3 Moderate decrease in GFR 30-59 4 Severe decrease in GFR 15-29 5 Kidney failure <15 (or dialysis) 47 [id number] 48 Because ethnic data is not always readily available, this report includes an eGFR for both -Americans and non- Americans. The National Kidney Disease Education Program (NKDEP) does not endorse the use of the MDRD equation for patients that are not between the ages of 18 and 70, are , have extremes of body size, muscle mass, or nutritional status, or are non- or non-. According to the National Kidney Foundation, irrespective of diagnosis, the stage of the disease is based on the level of kidney function: Stage Description GFR(mL/min/1.73 m(2)) 1 Kidney damage with normal or decreased GFR 90 2 Kidney damage with mild decrease in GFR 60-89 3 Moderate decrease in GFR 30-59 4 Severe decrease in GFR 15-29 5 Kidney failure <15 (or dialysis) 49 Desirable <150 Borderline high 150-199 High 200-499 Very High >500 50 Desirable <200 Borderline high 200-239 High >239 51 Low <40 Desirable: 40-60 High: >60 52 Desirable: <100 mg/dL Near Optimal: 100-129 mg/dL Borderline High: 130-159 mg/dL High: 160-189 mg/dL Very High: >189 mg/dL 53 Elevated levels of HbA1c suggest the need for more aggressive treatment of glycemia. The [place] [employer] recommends that a primary goal of therapy should be a HbA1c of <7% and that physicians should re-evaluate the treatment regimen in patients with HbA1c values consistently >8%. 54 Note: Persistent reduction for 3 months or more in an eGFR <60 mL/min/1.73 m2 defines CKD. Patients with eGFR values >/=60 mL/min/1.73 m2 may also have CKD if evidence of persistent proteinuria is present. The original MDRD equation for estimated GFR is not valid for patients less than 18 years of age. Additional information may be found at www.kdoqi.org. 55 Desirable <150 Borderline high 150-199 High 200-499 Very High >500 56 Desirable <200 Borderline high 200-239 High >239 57 Low <40 Desirable: 40-60 High: >60 58 Desirable <100 Near Optimal 100-129 Borderline high 130-159 High 160-189 Very High >189 59 Because ethnic data is not always readily available, this report includes an eGFR for both -Americans and non- Americans. The National Kidney Disease Education Program (NKDEP) does not endorse the use of the MDRD equation for patients that are not between the ages of 18 and 70, are , have extremes of body size, muscle mass, or nutritional status, or are non- or non-. According to the National Kidney Foundation, irrespective of diagnosis, the stage of the disease is based on the level of kidney function: Stage Description GFR(mL/min/1.73 m(2)) 1 Kidney damage with normal or decreased GFR 90 2 Kidney damage with mild decrease in GFR 60-89 3 Moderate decrease in GFR 30-59 4 Severe decrease in GFR 15-29 5 Kidney failure <15 (or dialysis) Procedures Date Code Description Status 07/21/2015 59184 Visual Screening Test Completed 07/21/2015 [id number] Audiometry, B[place], Screening Completed 06/04/2014 22371 Visual Screening Test Completed 06/04/2014 89322 Audiometry, Bekesy, Screening Completed Encounters Type Date Location Provider Dx Diagnosis Office Visit 09/19/2018 [facility] Sheldon Moss, G43.009 Migraine w/o aura, 3:15p N.P. 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 K59.00 Constipation, unspecified E66.09 Other obesity due to excess calories Z79.899 Other chcf (current) drug therapy M54.6 Pain in thoracic spine M54.17 Radiculopathy, lumbosacral region M54.5 Low back pain E55.9 Vitamin D deficiency, unspecified E78.2 Mixed hyperlipidemia Office Visit 09/05/2018 8:45a [facility] Sheldon Moss, G43.009 Migraine w/o aura, N.P. 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 K59.00 Constipation, unspecified E66.09 Other obesity due to excess calories Z79.899 Other chcf (current) drug therapy E55.9 Vitamin D deficiency, unspecified Office Visit 07/08/2018 8:30a [facility] Malathi Taylor G43.009 Migraine w/o [place] laarcon M.D. 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 K59.00 Constipation, unspecified E66.09 Other obesity due to excess calories Z79.899 Other chcf (current) drug therapy E55.9 Vitamin D deficiency, unspecified Office Visit 06/05/2018 8:30a [facility] BrandonMalathi marroquin G43.009 Migraine w/o [place] M.D. 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 K59.00 Constipation, unspecified E66.09 Other obesity due to excess calories Z79.899 Other chcf (current) drug therapy E55.9 Vitamin D deficiency, unspecified [facility] G[facility].009 Migraine w/o aura[place] M.D. 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 K59.00 Constipation, unspecified E66.09 Other obesity due to excess calories Z79.899 Other chcf (current) drug therapy E55.9 Vitamin D deficiency, unspecified [facility] G43.009 Migraine w/o auraMont[place] M.D. 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 K59.00 Constipation, unspecified E66.09 Other obesity due to excess calories Z79.899 Other chcf (current) drug therapy E55.9 Vitamin D deficiency, unspecified Office Visit 01/24/2018 8:30a [facility] Sheldon Moss, G43.009 Migraine w/o aura, N.P. 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 K59.00 Constipation, unspecified E66.09 Other obesity due to excess calories [facility] G[facility].009 Migraine w/o auraMontana MNatasha[place] 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 K59.00 Constipation, unspecified E66.09 Other obesity due to excess calories Office Visit 09/13/2017 8[facility] G43.009 Migraine w/o auraMontana MNatashaDN[place] 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 K59.00 Constipation, unspecified E66.09 Other obesity due to excess calories Office Visit 08/12/2017 8:00a [facility] Brandon, Danisleslye G43.009 Migraine w/o [place] alarcon M.D. not intractable, w/o status migrainosus K21.9 Gastro-esophageal reflux disease without esophagitis K30 Functional dyspepsia K44.9 Diaphragmatic hernia without obstruction or gangrene L20.9 Atopic dermatitis, unspecified J30.9 Allergic rhinitis, unspecified G47.00 Insomnia, unspecified F41.9 Anxiety disorder, unspecified R53.81 Other malaise Z68.34 Body mass index (BMI) 34.0-34.9, adult Z52.4 Kidney donor K59.00 Constipation, unspecified E66.09 Other obesity due to excess calories Z00.01 Encounter for general adult medical exam w abnormal findings Office Visit 07/15/2017 8:00a [facility] Brandon, Danisleslye G43.009 Migraine w/o [place] alarcon M.D. 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 K59.00 Constipation, unspecified E66.09 Other obesity due to excess calories Office Visit 06/12/2017 9:00a [facility] Brandon, Danisleslye G43.009 Migraine w/o [place] alarcon M.D. 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 K59.00 Constipation, unspecified E66.09 Other obesity due to excess calories Office Visit 05/10/2017 8:45a [facility] Malathi Taylor G43.009 Migraine w/o [place] alarcon M.D. 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 K59.00 Constipation, unspecified E66.09 Other obesity due to excess calories Office Visit 04/12/2017 8:45a [facility] Brandon, Ahleslye G43.009 Migraine w/o auraMont[place] M.D. not intractable, w/o status migrainosus K21.9 Gastro-esophageal reflux disease without esophagitis K30 Functional dyspepsia K44.9 Diaphragmatic hernia without obstruction or gangrene L20.9 Atopic dermatitis, unspecified J30.9 Allergic rhinitis, unspecified G47.00 Insomnia, unspecified E66.01 Morbid (severe) obesity due to excess calories F41.9 Anxiety disorder, unspecified R53.81 Other malaise Z52.4 Kidney donor K59.00 Constipation, unspecified Office Visit 02/11/2017 8:30a [facility] Ramses Lilly G47.00 Insomnia, [employer] unspecified E66.01 Morbid (severe) obesity due to excess calories K21.9 Gastro-esophageal reflux disease without esophagitis G43.009 Migraine w/o aura, not intractable, w/o status migrainosus Office Visit 01/11/2017 8:45a [facility] Fausto Taylorronny F41.Smitha Anxiety disorderMontana M.D. 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.4 Kidney donor R53.81 Other malaise K30 Functional dyspepsia K59.00 Constipation, unspecified K44.9 Diaphragmatic hernia without obstruction or gangrene L20.9 Atopic dermatitis, unspecified J30.9 Allergic rhinitis, unspecified E66.01 Morbid (severe) obesity due to excess calories K21.9 Gastro-esophageal reflux disease without esophagitis G43.009 Migraine w/o aura, not intractable, w/o status migrainosus Office Visit 12/13/2016 8:30a [facility] Ramses Lilly [facility] E66.01 Morbid (severe) obesity due to excess calories F41.9 Anxiety disorder, unspecified G47.00 Insomnia, unspecified K21.9 Gastro-esophageal reflux disease without esophagitis Z52.4 Kidney donor Office Visit 11/12/2016 8:30a [facility] Malathi Taylor, E66.01 Morbid (severe) M.D. obesity due to excess calories F41.9 Anxiety disorder, 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.4 Kidney donor K21.9 Gastro-esophageal reflux disease without esophagitis R53.81 Other malaise K30 Functional dyspepsia K59.00 Constipation, unspecified K44.9 Diaphragmatic hernia without obstruction or gangrene Office Visit 10/12/2016 11:45a [facility] Malathi Taylor, E66.01 Morbid (severe) M.D. obesity due to excess calories F41.9 Anxiety disorder, 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.4 Kidney donor K21.9 Gastro-esophageal reflux disease without esophagitis R53.81 Other malaise K30 Functional dyspepsia K59.00 Constipation, unspecified K44.9 Diaphragmatic hernia without obstruction or gangrene Office Visit 09/14/2016 8:45a [facility] Malathi Taylor, E66.01 Morbid (severe) M.D. obesity due to excess calories F41.9 Anxiety disorder, 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.4 Kidney donor K21.9 Gastro-esophageal reflux disease without esophagitis R53.81 Other malaise K30 Functional dyspepsia K59.00 Constipation, unspecified K44.9 Diaphragmatic hernia without obstruction or gangrene Office Visit 08/16/2016 4:30p [facility] Malathi Taylor, E66.01 Morbid (severe) M.D. obesity due to excess calories F41.9 Anxiety disorder, 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.4 Kidney donor K21.9 Gastro-esophageal reflux disease without esophagitis R53.81 Other malaise K30 Functional dyspepsia K59.00 Constipation, unspecified K44.9 Diaphragmatic hernia without obstruction or gangrene Office Visit 07/16/2016 8:30a [facility] Ramses Lilly [facility] E66.01 Morbid (severe) obesity due to excess calories F41.9 Anxiety disorder, 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.4 Kidney donor K21.9 Gastro-esophageal reflux disease without esophagitis Office Visit 06/15/2016 8:30a [facility] Malathi Taylor, E66.01 Morbid (severe) M.D. obesity due to excess calories F41.9 Anxiety disorder, 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.4 Kidney donor K21.9 Gastro-esophageal reflux disease without esophagitis R53.81 Other malaise K30 Functional dyspepsia K59.00 Constipation, unspecified K44.9 Diaphragmatic hernia without obstruction or gangrene Office Visit 05/18/2016 8:45a [facility] Malathi Taylor, E66.01 Morbid (severe) M.D. obesity due to excess calories F41.9 Anxiety disorder, 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.4 Kidney donor K21.9 Gastro-esophageal reflux disease without esophagitis R53.81 Other malaise K30 Functional dyspepsia K59.00 Constipation, unspecified K44.9 Diaphragmatic hernia without obstruction or gangrene Office Visit 04/17/2016 8:30a [facility] Malathi Taylor, E66.01 Morbid (severe) M.D. obesity due to excess calories F41.9 Anxiety disorder, 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.4 Kidney donor K21.9 Gastro-esophageal reflux disease without esophagitis R53.81 Other malaise K30 Functional dyspepsia K59.00 Constipation, unspecified K44.9 Diaphragmatic hernia without obstruction or gangrene Office Visit 03/16/2016 4:30p [facility] Malathi Taylor, E66.01 Morbid (severe) M.D. obesity due to excess calories F41.9 Anxiety disorder, 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.4 Kidney donor K21.9 Gastro-esophageal reflux disease without esophagitis R53.81 Other malaise K30 Functional dyspepsia K59.00 Constipation, unspecified K44.9 Diaphragmatic hernia without obstruction or gangrene Office Visit 02/17/2016 8:30a [facility] Brandon, Danisleslye Boyle, E66.01 Morbid (severe) M.D. obesity due to excess calories F41.9 Anxiety disorder, 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.4 Kidney donor K21.9 Gastro-esophageal reflux disease without esophagitis R53.81 Other malaise K30 Functional dyspepsia K59.00 Constipation, unspecified K44.9 Diaphragmatic hernia without obstruction or gangrene Office Visit 01/17/2016 10:45a [facility] BrandonMalathi crowe, E66.01 Morbid (severe) M.D. obesity due to excess calories F41.9 Anxiety disorder, 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.4 Kidney donor K21.9 Gastro-esophageal reflux disease without esophagitis R53.81 Other malaise K30 Functional dyspepsia K59.00 Constipation, unspecified K44.9 Diaphragmatic hernia without obstruction or gangrene Office Visit 12/16/2015 9:00a [facility] Brandon, Danisleslye Boyle, E66.01 Morbid (severe) M.D. obesity due to excess calories F41.9 Anxiety disorder, 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.4 Kidney donor K21.9 Gastro-esophageal reflux disease without esophagitis R53.81 Other malaise K30 Functional dyspepsia K59.00 Constipation, unspecified K44.9 Diaphragmatic hernia without obstruction or gangrene Office Visit 11/16/2015 2:45p [facility] Ramses Lilly [employer] E66.01 Morbid (severe) obesity due to excess calories Z52.4 Kidney donor F41.9 Anxiety disorder, unspecified K21.9 Gastro-esophageal reflux disease without esophagitis Office Visit 10/17/2015 8:45a [facility] Ramses Lilly E66.01 Morbid (severe) obesity due to excess calories Z52.4 Kidney donor F41.9 Anxiety disorder, unspecified R53.81 Other malaise K21.9 Gastro-esophageal reflux disease without esophagitis K30 Functional dyspepsia Office Visit 09/16/2015 8:30a [facility] Malathi Taylor, E66.01 Morbid (severe) M.DNatasha obesity due to excess calories Z52.4 Kidney donor F41.9 Anxiety disorder, unspecified R53.81 Other malaise K21.9 Gastro-esophageal reflux disease without esophagitis K30 Functional dyspepsia K44.9 Diaphragmatic hernia without obstruction or gangrene K59.00 Constipation, unspecified G47.00 Insomnia, unspecified Office Visit 08/19/2015 11:15a [facility] Malathi Taylor, E66.01 Morbid (severe) M.DNatasha obesity due to excess calories Z52.4 Kidney donor F41.9 Anxiety disorder, unspecified R53.81 Other malaise K21.9 Gastro-esophageal reflux disease without esophagitis K30 Functional dyspepsia K44.9 Diaphragmatic hernia without obstruction or gangrene K59.00 Constipation, unspecified G47.00 Insomnia, unspecified Office Visit 07/21/2015 9:00a [facility] Malathi Taylor Z00.01 Encounter for Rula Boyle general adult medical exam w abnormal findings E66.01 Morbid (severe) obesity due to excess calories Z52.4 Kidney donor F41.9 Anxiety disorder, unspecified R53.81 Other malaise K21.9 Gastro-esophageal reflux disease without esophagitis K30 Functional dyspepsia K44.9 Diaphragmatic hernia without obstruction or gangrene K59.00 Constipation, unspecified G47.00 Insomnia, unspecified Z68.34 Body mass index (BMI) 34.0-34.9, adult Office Visit 06/24/2015 2:00p [facility] Malathi Taylor, E66.01 Morbid (severe) M.D. obesity due to excess calories F41.9 Anxiety disorder, unspecified Z52.4 Kidney donor R53.81 Other malaise K21.9 Gastro-esophageal reflux disease without esophagitis K30 Functional dyspepsia K44.9 Diaphragmatic hernia without obstruction or gangrene K59.00 Constipation, unspecified G47.00 Insomnia, unspecified Office Visit 06/16/2015 11:30a [facility] Malathi Taylor, E66.01 Morbid (severe) M.D. obesity due to excess calories F41.9 Anxiety disorder, unspecified Z52.4 Kidney donor R53.81 Other malaise K21.9 Gastro-esophageal reflux disease without esophagitis K30 Functional dyspepsia K44.9 Diaphragmatic hernia without obstruction or gangrene K59.00 Constipation, unspecified G47.00 Insomnia, unspecified Office Visit 05/20/2015 8:30a [facility] Malathi Taylor, E66.01 Morbid (severe) M.D. obesity due to excess calories F41.9 Anxiety disorder, unspecified Z52.4 Kidney donor R53.81 Other malaise K21.9 Gastro-esophageal reflux disease without esophagitis K30 Functional dyspepsia K44.9 Diaphragmatic hernia without obstruction or gangrene K59.00 Constipation, unspecified Office Visit 04/15/2015 8:30a [facility] Malathi Taylor, E66.01 Morbid (severe) M.D. obesity due to excess calories F41.9 Anxiety disorder, unspecified Z52.4 Kidney donor R53.81 Other malaise Office Visit 03/16/2015 9:30a [facility] Ramses Lilly [employer] E66.01 Morbid (severe) obesity due to excess calories F41.9 Anxiety disorder, unspecified Z52.4 Kidney donor Office Visit 02/18/2015 9:30a [facility] Malathi Taylor, E66.01 Morbid (severe) M.D. obesity due to excess calories R53.81 Other malaise F41.9 Anxiety disorder, unspecified Z52.4 Kidney donor Z68.33 Body mass index (BMI) 33.0-33.9, adult Office Visit 01/18/2015 11:30a [facility] Malathi Taylor, 278.01 Obesity Morbid M.D. 780.79 Malaise And Fatigue Other 300.00 Anxiety State Unspec V59.4 Donor Kidney Office Visit 12/14/2014 8:30a [facility] Ramses Lilly 278.01 Obesity Morbid 780.79 Malaise And Fatigue Other 300.00 Anxiety State Unspec V59.4 Donor Kidney Office Visit 11/15/2014 10:30a [facility] Malathi Taylor M.D. 278.02 Overweight 780.79 Malaise And Fatigue Other V85.33 Body Mass Index 33.0-33.9 Adult 300.00 Anxiety State Unspec Office Visit 10/05/2014 11:30a [facility] Malathi Taylor M.D. 278.02 Overweight 780.79 Malaise And Fatigue Other V85.33 Body Mass Index 33.0-33.9 Adult 300.00 Anxiety State Unspec Office Visit 09/01/2014 4:45p [facility] Malathi Taylor M.D. 278.02 Overweight 780.79 Malaise And Fatigue Other V85.33 Body Mass Index 33.0-33.9 Adult 300.00 Anxiety State Unspec Office Visit 07/30/2014 8:30a [facility] Malathi Taylor M.D. 278.02 Overweight 780.79 Malaise And Fatigue Other V85.33 Body Mass Index 33.0-33.9 Adult 300.00 Anxiety State Unspec Office Visit 07/02/2014 8:45a [facility] Malathi Taylor M.D. 278.02 Overweight 780.79 Malaise And Fatigue Other V85.33 Body Mass Index 33.0-33.9 Adult Office Visit 06/04/2014 10:45a [facility] Malathi Taylor V70.0 Examination General [place] M.D. [facility] Routine [facility] 278.02 Overweight 780.79 Malaise And Fatigue Other V85.33 Body Mass Index 33.0-33.9 Adult Plan of Treatment Future Appointment(s):10/07/2018 8:30 am - Malathi Taylor M.D. at [facility]
--- OUTSIDE RECORDS SUMMARY | 2018-09-28 13:08 | XMS REPORT | Continuity of Care Document ---
:1980 External Reference #:[id number] Author Name Sheldon Moss N.P. Address [address] [facility] [address] [place] [address] Care Team Providers Name Role Phone Malathi Taylor MD Care Team Information Fulfillment Coordinator Unavailable Payers Date Identification Numbers Payment Provider Subscriber Policy Number: [id number] [facility] [employer] Christopher Nicolas PayID: [id number] [address] [address] [place] [address] Expires: 2017 Policy Number: [id number] [employer] Christopher Nicolas PayID: [id number] [address] [place] [address] Advance Directives Description No Information Available Problems Active Problems Provider Date Morbid obesity 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 27379Hlco Month On The Capsules First Fenofibrate 1 by mouth 90tabs E78.2 [facility] leslye Boyle, 09/10/2018 145mg Tablets every day M.D. Xanax 1 tab by mouth 90tabs F41.9 [facility]2018 0.25mg Tablets three times a M.D. day as needed for anxiety Cyclobenzaprine HCL 1 tab by mouth 90tabs M54.5 [facility] leslye Boyle, 2018 10mg three times a M.D. Tablets day as needed for muscle spasms M62.830 Phentermine HCL 1 tab by mouth 60tabs E66.09 [facility], 06/05[facility]2018 37.5mg twice a day M.D. Tablets Citalopram Hydrobromide Take One Tablet By 90tabs F41.9 [place], leslye Natasha, 05/01/2018 Mouth Once Daily M.D. 20mg Tablets as Needed Citalopram Hydrobromide Take One Tablet By 90tabs F41.9 [facility], 03/06/2018 Mouth Once Daily M.D. 40mg Tablets Zolpidem Tartrate take 1 tablet by 30tabs F41.9 [facility], 2017 10mg mouth at bedtime M.D. Tablets *maximum of one tablet daily* Anucort-HC [address] rectum 24units Brandon, leslye Boyle, 06/21/2017 25mg Suppository twice a day as M.D. needed Sumatriptan Succinate 1 tab three times 14tabs G43.009 Brandon, leslye Boyle, 100mg a day as needed M.D. Tablets Naproxen take 1 tablet by 60tabs [place], leslye Boyle, 07/25/2016 500mg Tablets mouth twice a day M.D. as needed History Medications Buspirone HCL 1 tab by mouth 60tabs F41.9 [facility] - 15mg twice a day M., M.D. 09/04/2018 Tablets Bontril PDM 1 tab by mouth 90tabs E66.09 [facility] 05/22/2018 - 35mg three times a M., M.D. 06/05/2018 Tablets day Citalopram 1 by mouth every 30tabs F41.9 [facility], [facility] 01/24/2018 - Hydrobromide day M., M.D. 03/06/2018 20mg Tablets Citalopram 1 tab by mouth 30tabs F41.9 [facility], [facility] 01/10/2018 - Hydrobromide every day M., M.D. 01/24/2018 10mg Tablets Phentermine HCL take one tablet 60tabs K21.9 [facility], [facility] 09/13/2017 - 37.5mg by mouth two M., M.D. 05/22/2018 Tablets times daily *maximum of two tablets daily* R53.81 E66.09 Bontril PDM 1-2 tab by 90tabs E66.09 BrandonMalathi croweNatasha, 10/12/2016 - 35mg mouth three M.D. 09/13/2017 Tablets times a day Phentermine HCL 1 tab by mouth 60tabs Z68.33 [facility] 09/14/2016 - 37.5mg twice a day M.D. 10/12/2016 Tablets R53.81 E66.09 Bontril PDM 2 tab by mouth 180tabs Z68.33 [facility] Gale[facility] 06/15/2016 - 35mg three times a M.D. 09/14/2016 Tablets day R53.81 E66.09 Phentermine HCL 1 tab by mouth 60tabs Z68.33 [facility] Gale[facility] 03/16/2016 - 37.5mg twice a day M.D. 06/15/2016 Tablets R53.81 E66.09 Bontril PDM 2 tab by mouth 180tabs Z68.33 [facility] 06/24/2015 - 35mg three times a M.D. 03/16/2016 Tablets day R53.81 E66.09 Ambien 1-2 tab by mouth 45tabs G47.00 [facility] 06/24/2015 - 10mg Tablets every night as M. M.D. 01/10/2018 needed Phentermine HCL 1 tab by mouth 60tabs Z68.33 [facility] 06/16/2015 - 37.5mg twice a day M., M.D. 06/24/2015 Tablets E66.09 Trazodone HCL 1-2 tab by mouth 60tabs G47.00 [facility], [facility] 06/16/2015 - 50mg at bedtime M. M.D. 06/24/2015 Tablets Bontril PDM 2 tab by mouth 180tabs Z68.33 [facility], [facility] 06/04/2014 - 35mg three times a day M., M.D. 06/16/2015 Tablets E66.09 Immunizations CPT Code Status Date Vaccine Reaction Lot # U-[id number] Given 02/01/2018 Influenza,Unspecified [id number] Given 02/04/2015 Flu Vaccine [id number] Given 02/23/2014 Flu Vaccine Pt received Flu Vaccine at her Pharmacy. Vital Signs Date Vital Result Comment 09/10/2018 8:46am BP Systolic 126 mmHg BP [...] H/L Range Note Laboratory test 09/05/2018 [facility] 25 Hydroxy 17 ng/mL Low (31-100) 1 finding 113 NAOMI ANTHONY Vit D @ (994)- - TSH,Ultrasensitive @ 1.300 mIU/L (0.360-4.170) Free Thyroxine @ 0.86 ng/dL (0.76-1.46) Hemoglobin A1c 09/05/2018 [facility] Hemoglobin A1c @ 5.1 % (4.0-6.0) 2 113 NAOMI ANTHONY (632)- - Est Average Glucose 100 mg/dL CBC With Diff 09/05/2018 [facility] WBC 6.0 10*3/uL (4.1-11.0) 113 NAOMI ANTHONY (215)- - RBC 4.58 10*6/uL (4.00-5.40) HGB 12.9 g/dL (12.0-16.0) HCT 38.7 % (36.0-47.0) MCV 84.5 fL (80.0-95.0) MCH 28.1 pg (27.0-32.0) MCHC 33.3 g/dL (32.0-36.0) RDW 13.8 % (10.5-14.5) PLT 222 10*3/uL (150-450) MPV 8.3 fL (7.1-10.7) Neut % 68.1 % (35.0-75.0) Lymph % 25.2 % (16.0-52.0) [place] % 4.7 % (0.0-8.0) Eos % 1.5 % (0.0-5.0) Baso % 0.5 % (0.0-4.0) Neut # 4.1 10*3/uL (1.8-7.7) Lymph # 1.5 10*3/uL (1.2-4.8) [place] # 0.3 10*3/uL (0.0-0.8) Eos # 0.1 10*3/uL (0.0-0.5) Baso # 0.0 10*3/uL (0.0-0.2) CMP 09/05/2018 [facility] Sodium 139 mmol/L (136-145) Brant ANTHONY (423)- - Potassium 4.2 mmol/L (3.6-5.2) Chloride 108 [...] Interpretation <SEE NOTE> 3 Laboratory test 09/05/2018 [facility] Uric Acid 5.1 mg/dL (2.6-6.0) finding Brant ANTHONY (097)- - Rheumatoid Factor @ <15 IU/mL (0-15) C Reactive Protein @ 1.1 mg/dL High (0.0-0.5) Esr 23 mm/h High (0-20) Lipid 09/05/2018 [facility] Cholesterol @ 189 mg/dL (0-200) 113 INNOVATION RAJ (607)- - Triglyceride @ 248 mg/dL High (30-200) HDL Cholesterol @ 53 mg/dL (>40) 4 Chol/HDL Ratio 3.6 RATIO 5 LDL Chol (Calc) 86 mg/dL (<130) 6 Ethyl Glucuronide 01/24/2018 [facility] Ethyl Glucuronide Negative ng/mL N 500 7 PDF SEE IMAGE Laboratory test finding 01/24/2018 [facility] Tramadol Negative ng/mL N 5 8 Gabapentin Negative ng/mL N 100 9 Zolpidem 22 Positive Cons <SEE NOTE> ng/mL N 10 10 Phentermine Positive >5000 C <SEE NOTE> ng/mL N 50 11 Citalopram/Escitalopram Positive >500 Co <SEE NOTE> ng/mL N 5 12 Urine DRG SCR 01/24/2018 [facility] Amphetamine NEGATIVE N 1000 (12PNL-PM) Barbiturate NEGATIVE N 200 Benzodiazepine NEGATIVE N 200 Buprenorphine NEGATIVE N 15 Cannabinoid NEGATIVE N 50 Cocaine NEGATIVE N 300 Methadone NEGATIVE N 300 Opiate NEGATIVE N 300 Oxycodone NEGATIVE N 300 Phencyclidine NEGATIVE N 25 13 Cocaine Panel By 01/24/2018 [facility] Benzoylecgonine Negative ng/mL N 50 14 LC/MS/MS (Cocaine) Amphetamine Panel 01/24/2018 [facility] Amphetamine Negative ng/ mL N 50 By LC/MS/MS Methamphetamine Negative ng/mL N 50 Mdma (Ecstasy) Negative ng/mL N 50 Mda Negative ng/ml N 50 Mdea Negative ng/mL N 50 15 Specimen Validity 01/24/2018 [facility] Creatinine, Urine 99 mg/ dL N >20 Panel Color YELLOW N Yellow pH 6.6 N 5.0-8.0 Specific [place] 1.022 N 1.001-1.035 16 Opiates Panel By 01/24/2018 [facility] 6-Qamar (Heroin Negative ng/ mL N 5 LC/MS/MS Metabolite) Codeine Negative ng/mL N 50 Hydrocodone Negative ng/mL N 50 Hydromorphone Negative ng/mL N 50 Morphine Negative ng/mL N 50 Norhydrocodone Negative ng/mL N 50 Noroxycodone Negative ng/mL N 50 Noroxymorphone Negative ng/mL N 50 Oxycodone Negative ng/mL N 50 Oxymorphone Negative ng/mL N 50 17 Methadone Panel By 01/24/2018 [facility] Eddp Negative ng/mL N 10 LC/MS/MS Methadone Negative ng/mL N 10 18 Buprenorphine Panel By 01/24/2018 [facility] Buprenorphine Negative ng/mL N 5 LC/MS/MS Naloxone Negative ng/mL N 10 Norbuprenorphine Negative ng/mL N 5 19 Benzodiazepines 01/24/2018 [facility] 2-Hydroxyethylflurazepam Negative N 10 Panel [...] N 10 20 Barbiturates Panel By 01/24/2018 [facility] Butalbital Negative ng/mL N 100 LC/MS/MS Pentobarbital Negative ng/mL N 100 Phenobarbital Negative ng/mL N 100 Secobarbital Negative ng/mL N 100 21 Antidepressants Panel 01/24/2018 [facility] Amitriptyline Negative ng/mL N 20 By LC/MS/MS Clomipramine Negative ng/mL N 20 Desipramine Negative ng/mL N 20 Doxepin Negative ng/mL N 20 Fluoxetine Negative ng/mL N 20 Imipramine Negative ng/mL N 20 Norclomipramine Negative ng/mL N 20 Nordoxepin Negative ng/mL N 20 Nortriptyline Negative ng/mL N 20 Sertraline Negative ng/mL N 20 Trimipramine Negative ng/mL N 20 22 Urine Drug [facility] 01/24/2018 [facility] DEY-[id number]-8-Cooh Negative ng/mL N 5 23 Buprenorphine Panel 01/10/2018 [facility] Buprenorphine Negative ng/mL N 5 24 By LC/MS/MS Naloxone Negative ng/mL N 10 Norbuprenorphine Negative ng/mL N 5 25 Methadone Panel By 01/10/2018 [facility] Eddp Negative ng/mL N 10 LC/MS/MS Methadone Negative ng/mL N 10 26 Opiates Panel By 01/10/2018 [facility] 6-Qamar (Heroin Negative ng/ mL N 5 LC/MS/MS Metabolite) Codeine Negative ng/mL N 50 Hydrocodone Negative ng/mL N 50 Hydromorphone Negative ng/mL N 50 Morphine Negative ng/mL N 50 Norhydrocodone Negative ng/mL N 50 Noroxycodone Negative ng/mL N 50 Noroxymorphone Negative ng/mL N 50 Oxycodone Negative ng/mL N 50 Oxymorphone Negative ng/mL N 50 27 Specimen Validity 01/10/2018 [facility] Creatinine, Urine 236 mg/ dL N >20 Panel Color YELLOW N Yellow pH 5.5 N 5.0-8.0 Specific [place] 1.031 N 1.001-1.035 28 Amphetamine Panel By 01/10/2018 [facility] Amphetamine Negative ng/mL N 50 LC/MS/MS Methamphetamine Negative ng/mL N 50 Mdma (Ecstasy) Negative ng/mL N 50 Mda Negative ng/ml N 50 Mdea Negative ng/mL N 50 29 Cocaine Panel 01/10/2018 [facility] Benzoylecgonine Negative N 50 30 By LC/MS/MS (Cocaine) ng/mL Urine DRG SCR 01/10/2018 [facility] Amphetamine POSITIVE Abnormal 1000 (12PNL-PM) Barbiturate NEGATIVE N 200 Benzodiazepine NEGATIVE N 200 Buprenorphine NEGATIVE N 15 Cannabinoid NEGATIVE N 50 Cocaine NEGATIVE N 300 Methadone NEGATIVE N 300 Opiate NEGATIVE N 300 Oxycodone NEGATIVE N 300 Phencyclidine NEGATIVE N 25 31 Laboratory test finding 01/10/2018 [facility] Tramadol Negative ng/mL N 5 32 Gabapentin Negative ng/mL N 100 33 Phentermine Positive >5000 C <SEE NOTE> ng/mL N 50 34 Ethyl Glucuronide 01/10/2018 [facility] Ethyl Glucuronide Negative ng/mL N 500 PDF SEE IMAGE Laboratory test 01/10/2018 [facility] Zolpidem 56 Positive N 10 35 finding Cons <SEE NOTE> ng/mL Lipid 01/10/2018 [facility] Cholesterol @ 174 mg/dL (0-200) 113 NAOMI ANTHONY (607)- - Triglyceride @ 128 mg/dL (30-200) HDL Cholesterol @ 52 mg/dL (>40) 36 Chol/HDL Ratio 3.3 RATIO 37 LDL Chol (Calc) 96 mg/dL (<130) 38 CMP 01/10/2018 [facility] Sodium 139 mmol/L (136-145) 113 NAOMI ANTHONY (607)- - Potassium 4.2 mmol/L (3.6-5.2) [...] NOTE> 39 CBC With Diff 01/10/2018 [facility] WBC 5.9 10*3/uL (4.1-11.0) 113 NAOMI ANTHONY (607)- - RBC 4.87 10*6/uL (4.00-5.40) HGB 13.8 g/dL (12.0-16.0) HCT 41.0 % (36.0-47.0) MCV 84.3 fL (80.0-95.0) MCH 28.4 pg (27.0-32.0) MCHC 33.7 g/dL (32.0-36.0) RDW 13.6 % (10.5-14.5) PLT 191 10*3/uL (150-450) MPV 9.4 fL (7.1-10.7) Neut % 64.6 % (35.0-75.0) Lymph % 29.5 % (16.0-52.0) [place] % 4.7 % (0.0-8.0) Eos % 0.6 % (0.0-5.0) Baso % 0.6 % (0.0-4.0) Neut # 3.8 10*3/uL (1.8-7.7) Lymph # 1.8 10*3/uL (1.2-4.8) [place] # 0.3 10*3/uL (0.0-0.8) Eos # 0.0 10*3/uL (0.0-0.5) Baso # 0.0 10*3/uL (0.0-0.2) Laboratory test 01/10/2018 [facility] Vitamin B12 @ 268 pg/mL (193-986 ) finding 113 NAOMI ANTHONY (694)- - Folate @ 5.0 ng/mL (3.1-17.5) Hemoglobin A1c 01/10/2018 [facility] Hemoglobin A1c @ 5.2 % (4.0-6.0) 40 113 NAOMI ANTHONY (715)- - Est Average Glucose 103 mg/dL Laboratory test 01/10/2018 [facility] TSH,Ultrasensitive 0.780 (0.360- 4.170) finding 113 NAOMI ANTHONY @ mIU/L (886)- - Benzodiazepines 01/10/2018 [facility] 2-Hydroxyethylflura Negative N 10 Panel [...] N 10 41 Barbiturates Panel By 01/10/2018 [facility] Butalbital Negative ng/mL N 100 LC/MS/MS Pentobarbital Negative ng/mL N 100 Phenobarbital Negative ng/mL N 100 Secobarbital Negative ng/mL N 100 42 Antidepressants Panel 01/10/2018 [facility] Amitriptyline Negative ng/mL N 20 By LC/MS/MS Clomipramine Negative ng/mL N 20 Desipramine Negative ng/mL N 20 Doxepin Negative ng/mL N 20 Fluoxetine Negative ng/mL N 20 Imipramine Negative ng/mL N 20 Norclomipramine Negative ng/mL N 20 Nordoxepin Negative ng/mL N 20 Nortriptyline Negative ng/mL N 20 Sertraline Negative ng/mL N 20 Trimipramine Negative ng/mL N 20 43 Urine Drug 01/10/2018 [facility] VAG-Jlgcx-1-Cooh Negative N 5 44 [facility] ng/mL Laboratory test 01/10/2018 [facility] 25 Hydroxy Vit D @ 31 ng/mL (31- 10 45 finding 113 INNOVATION RAJ 0) (607)- - Esr 20 mm/h (0-20) Iron Panel 01/10/2018 [facility] Iron,Total @ 90 g/dL (35-150) 113 INNOVATION RAJ (607)- - Uibc @ 220 g/dL (130-375) Tibc @ 310 g/dL (250-450) % Saturation 29 % (12-50) Basic Metabolic Panel 08/16/2016 [facility] Sodium 134 mmol/L N 133- 145 Potassium [...] N >60 46 CBC Auto Diff 08/16/2016 [facility] White Blood Count 8.6 10^3/uL N 3.5-10.8 [...] Cells % 0 N Laboratory test 08/16/2016 [facility] Creatinine Random 335.09 mg/dL N 47 finding Urine Laboratory test 07/21/2015 [facility] TSH (Thyroid Stim 0.83 ?IU/mL N 0.34-5. finding Horm) 60 CBC Auto Diff 07/21/2015 [facility] White Blood Count 4.8 10^3/uL N 3.5-10. [...] % 0 N Comp Metabolic Panel 07/21/2015 [facility] Sodium 137 mmol/L N 133- 145 Potassium [...] 86.1 N >60 48 Lipid Profile 07/21/2015 [facility] Triglycerides 124 mg/dL N 49 (Trig/Chol/HDL) Cholesterol 200 mg/dL N 50 HDL Cholesterol 56.5 mg/dL N 51 LDL Cholesterol 119 mg/dL N 52 Glycohemoglobin A1c 03/16/2015 [facility] Glycohemoglobin (A1c) 5.3 % 4.2- 6.3 53 eAG 105 mg/dL Laboratory test finding 03/16/2015 [facility] Thyroid Stim 0.67 uIU/mL 0.36-3.74 Hormone Comprehensive Metabolic 03/16/2015 [facility] Glucose 94 mg/dL 74-106 Panel BUN 16 [...] 78 U/L 45-117 CBC W/Automated Diff 03/16/2015 [facility] White Blood Count 6.1 K/uL 3.1- 10.7 [...] % 40.4-72.8 Lymph % 27.9 % 17.0-46.1 [place] % 5.9 % 4.3-13.2 Eo% 0.8 % 0.0-6.6 Bas% 0.2 % 0.0-1.1 Neut# 4.00 K/uL 1.0-7.0 Lymph # 1.71 K/uL Low 1.8-7.0 [place] # 0.36 K/uL 0.3-0.9 Eos # 0.05 K/uL 0.0-0.5 Baso # 0.01 K/uL 0.0-0.1 Lipid Profile 06/04/2014 [facility] Triglycerides 238 mg/dL N 55 (Trig/Chol/HDL) Cholesterol 201 mg/dL N 56 HDL Cholesterol 48.7 mg/dL N 57 LDL Cholesterol 105 mg/dL N 58 Laboratory test 06/04/2014 [facility] TSH (Thyroid 1.06 IU/mL N 0.34- 5.60 finding Stimulating Horm) Comp Metabolic 06/04/2014 [facility] Sodium 136 mmol/L N 133-145 Panel Potassium [...] N >60 59 CBC Auto Diff 06/04/2014 [facility] White Blood Count 5.9 10^3/uL N 4.8-10.8 [...] ESTABLISHED USING THIS METHOD. 2 Performed using Meteor immunoassay. Care must be taken when interpreting [...] used for medication dosing. 40 Performed using Meteor immunoassay. Care must be taken when interpreting [...] 5 Kidney failure <15 (or dialysis) 47 [id number] Because ethnic data is not always [...] for more aggressive treatment of glycemia. The [place] [employer] recommends that a primary goal [...] dialysis) Procedures Date Code Description Status 07/21/2015 54673 Visual Screening Test Completed 07/21/2015 83532 Audiometry, Bekesy, Screening Completed 06/04/2014 57799 Visual Screening Test Completed 06/04/2014 51041 Audiometry, Bekesy, Screening Completed Encounters Type Date Location Provider Dx Diagnosis Office Visit 09/10/2018 [facility] Sheldon Moss, G43.009 Migraine w/o aura, 9:00a N.P. 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 K59.00 Constipation, unspecified E66.09 Other obesity due to excess calories Z79.899 Other custodial (current) drug therapy M54.6 Pain in thoracic spine M54.17 Radiculopathy, lumbosacral region M54.5 Low back pain E55.9 Vitamin D deficiency, unspecified E78.2 Mixed hyperlipidemia Office Visit 09/05/2018 8:45a [facility] Sheldon Moss G43.009 Migraine w/o aura, N.P. 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 K59.00 Constipation, unspecified E66.09 Other obesity due to excess calories Z79.899 Other custodial (current) drug therapy E55.9 Vitamin D deficiency, unspecified Office Visit 07/08/2018 8:30a [facility] Malathi Taylor G43.009 Migraine w/o [place] alarcon M.D. 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 K59.00 Constipation, unspecified E66.09 Other obesity due to excess calories Z79.899 Other custodial (current) drug therapy E55.9 Vitamin D deficiency, unspecified Office Visit 05/01/2018 8:30a [facility] w/o auraMontana M.D. 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 K59.00 Constipation, unspecified E66.09 Other obesity due to excess calories Z79.899 Other custodial (current) drug therapy E55.9 Vitamin D deficiency, unspecified Office Visit 04/01/2018 8:30a [facility] Migraine w/o aurMont[place] alvarado MMayelin 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 K59.00 Constipation, unspecified E66.09 Other obesity due to excess calories Z79.899 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 K59.00 Constipation, unspecified E66.09 Other obesity due to excess calories Z79.899 Other custodial (current) drug therapy E55.9 Vitamin D deficiency, unspecified Office Visit 12/11/2017 8:15a [facility]raine w/o [place] alarcon M.D. 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 K59.00 Constipation, unspecified E66.09 Other obesity due to excess calories Office Visit 10/14/2017 8:15a [facility] BrandonFausto croweronny G43.009 Migraine w/o [place] alarcon MMayelin 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 K59.00 Constipation, unspecified E66.09 Other obesity due to excess calories Office Visit 09/13/2017 8[facility] w/o [place] alarcon M.D. 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 not [...] w abnormal findings Office Visit 07/15/2017 8:00a [facility] Brandon, Ahleslye G43.009 Migraine w/o [place] alarcon M.D. 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 K59.00 Constipation, unspecified E66.09 Other obesity due to excess calories Office Visit 05/10/2017 8:45a [facility] Malathi Taylor G43.009 Migraine w/o [place] [...] to excess calories Office Visit 04/12/2017 8:45a [facility] Malathi Taylor G43.009 Migraine w/o [place] [...] K59.00 Constipation, unspecified Office Visit 02/11/2017 8:30a [facility] Ramses Lilly 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.4 Kidney donor R53.81 Other malaise K30 Functional dyspepsia K59.00 Constipation, unspecified K44.9 Diaphragmatic hernia without obstruction or gangrene L20.9 Atopic dermatitis, unspecified J30.9 Allergic rhinitis, unspecified E66.01 Morbid (severe) obesity due to excess calories K21.9 Gastro-esophageal reflux disease without esophagitis G43.009 Migraine w/o aura, not intractable, w/o status migrainosus Office Visit 12/13/2016 8:30a [facility] Ramses Lilly [facility] E66.01 Morbid (severe) obesity due to excess calories F41.9 Anxiety disorder, unspecified G47.00 Insomnia, unspecified K21.9 Gastro-esophageal reflux disease without esophagitis Z52.4 Kidney donor Office Visit 11/12/2016 8:30a [facility] Malathi Taylor, E66.01 Morbid (severe) M.D. obesity due to excess calories F41.9 Anxiety disorder, 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.4 Kidney donor K21.9 Gastro-esophageal reflux disease without esophagitis R53.81 Other malaise K30 Functional dyspepsia K59.00 Constipation, unspecified K44.9 Diaphragmatic hernia without obstruction or gangrene Office Visit 10/12/2016 11:45a [facility] Malathi Taylor, E66.01 Morbid (severe) M.D. obesity due to excess calories F41.9 Anxiety disorder, 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.4 Kidney donor K21.9 Gastro-esophageal reflux disease without esophagitis R53.81 Other malaise K30 Functional dyspepsia K59.00 Constipation, unspecified K44.9 Diaphragmatic hernia without obstruction or gangrene Office Visit 09/14/2016 8:45a [facility] Malathi Taylor, E66.01 Morbid (severe) M.D. obesity due to excess calories F41.9 Anxiety disorder, 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.4 Kidney donor K21.9 Gastro-esophageal reflux disease without esophagitis R53.81 Other malaise K30 Functional dyspepsia K59.00 Constipation, unspecified K44.9 Diaphragmatic hernia without obstruction or gangrene Office Visit 08/16/2016 4:30p [facility] Malathi Taylor, E66.01 Morbid (severe) M.D. obesity due to excess calories F41.9 Anxiety disorder, 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.4 Kidney donor K21.9 Gastro-esophageal reflux disease without esophagitis R53.81 Other malaise K30 Functional dyspepsia K59.00 Constipation, unspecified K44.9 Diaphragmatic hernia without obstruction or gangrene Office Visit 07/16/2016 8:30a [facility] Ramses Lilly [facility] E66.01 Morbid (severe) obesity due to excess calories F41.9 Anxiety disorder, 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.4 Kidney donor K21.9 Gastro-esophageal reflux disease without esophagitis Office Visit 06/15/2016 8:30a [facility] Malathi Taylor, E66.01 Morbid (severe) M.D. obesity due to excess calories F41.9 Anxiety disorder, 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.4 Kidney donor K21.9 Gastro-esophageal reflux disease without esophagitis R53.81 Other malaise K30 Functional dyspepsia K59.00 Constipation, unspecified K44.9 Diaphragmatic hernia without obstruction or gangrene Office Visit 05/18/2016 8:45a [facility] Malathi Taylor, E66.01 Morbid (severe) M.D. obesity due to excess calories F41.9 Anxiety disorder, 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.4 Kidney donor K21.9 Gastro-esophageal reflux disease without esophagitis R53.81 Other malaise K30 Functional dyspepsia K59.00 Constipation, unspecified K44.9 Diaphragmatic hernia without obstruction or gangrene Office Visit 04/17/2016 8:30a [facility] Malathi Taylor M., E66.01 Morbid (severe) M.D. obesity due to excess calories F41.9 Anxiety disorder, 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.4 Kidney donor K21.9 Gastro-esophageal reflux disease without esophagitis R53.81 Other malaise K30 Functional dyspepsia K59.00 Constipation, unspecified K44.9 Diaphragmatic hernia without obstruction or gangrene Office Visit 03/16/2016 4:30p [facility] BrandonMalathi crowe, E66.01 Morbid (severe) M.D. obesity due to excess calories F41.9 Anxiety disorder, 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.4 Kidney donor K21.9 Gastro-esophageal reflux disease without esophagitis R53.81 Other malaise K30 Functional dyspepsia K59.00 Constipation, unspecified K44.9 Diaphragmatic hernia without obstruction or gangrene Office Visit 02/17/2016 8:30a [facility] BrandonMalathi crowe, E66.01 Morbid (severe) M.D. obesity due to excess calories F41.9 Anxiety disorder, 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.4 Kidney donor K21.9 Gastro-esophageal reflux disease without esophagitis R53.81 Other malaise K30 Functional dyspepsia K59.00 Constipation, unspecified K44.9 Diaphragmatic hernia without obstruction or gangrene Office Visit 01/17/2016 10:45a [facility] BrandonMalathi marroquin, E66.01 Morbid (severe) M.D. obesity due to excess calories F41.9 Anxiety disorder, 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.4 Kidney donor K21.9 Gastro-esophageal reflux disease without esophagitis R53.81 Other malaise K30 Functional dyspepsia K59.00 Constipation, unspecified K44.9 Diaphragmatic hernia without obstruction or gangrene Office Visit 12/16/2015 9:00a [facility] Malathi Taylor, E66.01 Morbid (severe) M.D. obesity due to excess calories F41.9 Anxiety disorder, 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.4 Kidney donor K21.9 Gastro-esophageal reflux disease without esophagitis R53.81 Other malaise K30 Functional dyspepsia K59.00 Constipation, unspecified K44.9 Diaphragmatic hernia without obstruction or gangrene Office Visit 11/16/2015 2:45p [facility] Ramses Lilly [facility] E66.01 Morbid (severe) obesity due to excess calories Z52.4 Kidney donor F41.9 Anxiety disorder, unspecified K21.9 Gastro-esophageal reflux disease without esophagitis Office Visit 10/17/2015 8:45a [facility] Ramses Lilly [facility] E66.01 Morbid (severe) obesity due to excess calories Z52.4 Kidney donor F41.9 Anxiety disorder, unspecified R53.81 Other malaise K21.9 Gastro-esophageal reflux disease without esophagitis K30 Functional dyspepsia Office Visit 09/16/2015 8:30a [facility] Malathi Taylor, E66.01 Morbid (severe) M.D. obesity due to excess calories Z52.4 Kidney donor F41.9 Anxiety disorder, unspecified R53.81 Other malaise K21.9 Gastro-esophageal reflux disease without esophagitis K30 Functional dyspepsia K44.9 Diaphragmatic hernia without obstruction or gangrene K59.00 Constipation, unspecified G47.00 Insomnia, unspecified Office Visit 08/19/2015 11:15a [facility] Malathi Taylor, E66.01 Morbid (severe) M.D. obesity due to excess calories Z52.4 Kidney donor F41.9 Anxiety disorder, unspecified R53.81 Other malaise K21.9 Gastro-esophageal reflux disease without esophagitis K30 Functional dyspepsia K44.9 Diaphragmatic hernia without obstruction or gangrene K59.00 Constipation, unspecified G47.00 Insomnia, unspecified Office Visit 07/21/2015 9:00a [facility] Malathi Taylor Z00.01 Encounter for Rula [...] (BMI) 34.0-34.9, adult Office Visit 06/24/2015 2:00p [facility] Malathi Taylor, E66.01 Morbid (severe) M.D. obesity due to excess calories F41.9 Anxiety disorder, unspecified Z52.4 Kidney donor R53.81 Other malaise K21.9 Gastro-esophageal reflux disease without esophagitis K30 Functional dyspepsia K44.9 Diaphragmatic hernia without obstruction or gangrene K59.00 Constipation, unspecified G47.00 Insomnia, unspecified Office Visit 06/16/2015 11:30a [facility] Malathi Taylor, E66.01 Morbid (severe) M.D. obesity due to excess calories F41.9 Anxiety disorder, unspecified Z52.4 Kidney donor R53.81 Other malaise K21.9 Gastro-esophageal reflux disease without esophagitis K30 Functional dyspepsia K44.9 Diaphragmatic hernia without obstruction or gangrene K59.00 Constipation, unspecified G47.00 Insomnia, unspecified Office Visit 05/20/2015 8:30a [facility] Malathi Taylor, E66.01 Morbid (severe) M.D. obesity due to excess calories F41.9 Anxiety disorder, unspecified Z52.4 Kidney donor R53.81 Other malaise K21.9 Gastro-esophageal reflux disease without esophagitis K30 Functional dyspepsia K44.9 Diaphragmatic hernia without obstruction or gangrene K59.00 Constipation, unspecified Office Visit 04/15/2015 8:30a [facility] Malathi Taylor, E66.01 Morbid (severe) M.D. obesity due to excess calories F41.9 Anxiety disorder, unspecified Z52.4 Kidney donor R53.81 Other malaise Office Visit 03/16/2015 9:30a [facility] Ramses Lilly E66.01 Morbid (severe) obesity due to excess calories F41.9 Anxiety disorder, unspecified Z52.4 Kidney donor Office Visit 02/18/2015 9:30a [facility] Malathi Taylor, E66.01 Morbid (severe) M.D. obesity due to excess calories R53.81 Other malaise F41.9 Anxiety disorder, unspecified Z52.4 Kidney donor Z68.33 Body mass index (BMI) 33.0-33.9, adult Office Visit 01/18/2015 11:30a [facility] Malathi Taylor, 278.01 Obesity Morbid M.D. 780.79 Malaise And Fatigue Other 300.00 Anxiety State Unspec V59.4 Donor Kidney Office Visit 12/14/2014 8:30a [facility] Ramses Lilly [facility] 278.01 Obesity Morbid 780.79 Malaise And Fatigue Other 300.00 Anxiety State Unspec V59.4 Donor Kidney Office Visit 11/15/2014 10:30a [facility] Malathi Taylor M.D. 278.02 Overweight 780.79 Malaise And Fatigue Other V85.33 Body Mass Index 33.0-33.9 Adult 300.00 Anxiety State Unspec Office Visit 10/05/2014 11:30a [facility] Malathi Taylor M.D. 278.02 Overweight 780.79 Malaise And Fatigue Other V85.33 Body Mass Index 33.0-33.9 Adult 300.00 Anxiety State Unspec Office Visit 09/01/2014 4:45p [facility] Malathi Taylor M.D. 278.02 Overweight 780.79 Malaise And Fatigue Other V85.33 Body Mass Index 33.0-33.9 Adult 300.00 Anxiety State Unspec Office Visit 07/30/2014 8:30a [facility] Malathi Taylor M.D. 278.02 Overweight 780.79 Malaise And Fatigue Other V85.33 Body Mass Index 33.0-33.9 Adult 300.00 Anxiety State Unspec Office Visit 07/02/2014 8:45a [facility] Malathi Taylor M.D. 278.02 Overweight 780.79 Malaise And Fatigue Other V85.33 Body Mass Index 33.0-33.9 Adult Office Visit 06/04/2014 10:45a [facility] Malathi Taylor V70.0 Chad Boyle M.D. [facility] 278.02 Overweight 780.79 Malaise And Fatigue Other V85.33 Body Mass Index 33.0-33.9 Adult Plan of Treatment Future Appointment(s):10/07/2018 8:30 am - Malathi Taylor M.D. at [facility]
--- OUTSIDE RECORDS SUMMARY | 2018-09-28 13:09 | XMS REPORT | Continuity of Care Document ---
:1980 External Reference #:[id number] Author Name Sheldon Moss N.P. 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 Payers Date Identification Numbers Payment Provider Subscriber Policy Number: [id number] [facility] [employer] Ppo Christopher Nicolas PayID: [id number] [address] [address] [place] [address] Expires: 2017 Policy Number: [id number] [employer] Christopher Nicolas PayID: [id number] [address] [place] [address] Advance Directives Description No Information Available Problems Active Problems Provider Date Morbid obesity 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 day as needed for anxiety Cyclobenzaprine HCL 1 tab by mouth 90tabs M54.5 [facility] 10mg three times a M.D. Tablets day as needed for muscle spasms M62.830 Phentermine HCL 1 tab by mouth 60tabs E66.09 [facility] 06/05/2018 37.5mg twice a day M.D. Tablets Citalopram Hydrobromide Take One Tablet By 90tabs F41.9 [facility] Natasha, 05/01/2018 Mouth Once Daily M.D. 20mg Tablets as Needed Citalopram Hydrobromide Take One Tablet By 90tabs F41.9 [facility] Nat[facility], 03/06/2018 Mouth Once Daily M.D. 40mg Tablets Zolpidem Tartrate take 1 tablet by 30tabs F41.9 [facility] Nat[facility], 2017 10mg mouth at bedtime M.D. Tablets *maximum of one tablet daily* Anucort-HC [address] of rectum 24units [facility] Nat[facility], 06/21/2017 25mg Suppository twice a day as M.D. needed Sumatriptan Succinate 1 tab three times 14tabs G43.009 [facility], 100mg a day as needed M.D. Tablets Naproxen take 1 tablet by 60tabs [facility] Nat[facility], 07/25/2016 500mg Tablets mouth twice a day M.D. as needed History Medications Buspirone HCL 1 tab by mouth 60tabs F41.9 [facility] 08/05/2018 - 15mg twice a day M., M.D. 09/04/2018 Tablets Bontril PDM 1 tab by mouth 90tabs E66.09 [facility] 05/22/2018 - 35mg three times a M., M.D. 06/05/2018 Tablets day Citalopram 1 by mouth every 30tabs F41.9 [facility] 01/24/2018 - Hydrobromide day M., M.D. 03/06/2018 20mg Tablets Citalopram 1 tab by mouth 30tabs F41.9 [facility] 01/10/2018 - Hydrobromide every day M., M.D. 01/24/2018 10mg Tablets Phentermine HCL take one tablet 60tabs K21.9 [facility] 09/13/2017 - 37.5mg by mouth two M., M.D. 05/22/2018 Tablets times daily *maximum of two tablets daily* R53.81 E66.09 Bontril PDM 1-2 tab by 90tabs E66.09 [facility] GaleanaNatasha, 10/12/2016 - 35mg mouth three M.D. 09/13/2017 Tablets times a day Phentermine HCL 1 tab by mouth 60tabs Z68.33 [place] Galeana[facility], 09/14/2016 - 37.5mg twice a day M.D. 10/12/2016 Tablets R53.81 E66.09 Bontril PDM 2 tab by mouth 180tabs Z68.33 [facility], 06/15/2016 - 35mg three times a M.D. 09/14/2016 Tablets day R53.81 E66.09 Phentermine HCL 1 tab by mouth 60tabs Z68.33 [facility] GaleanaNatasha, 03/16/2016 - 37.5mg twice a day M.D. 06/15/2016 Tablets R53.81 E66.09 Bontril PDM 2 tab by mouth 180tabs Z68.33 [facility] Nat[facility], 06/24/2015 - 35mg three times a M.D. 03/16/2016 Tablets day R53.81 E66.09 Ambien 1-2 tab by mouth 45tabs G47.00 [facility] 06/24/2015 - 10mg Tablets every night as M., M.D. 01/10/2018 needed Phentermine HCL 1 tab by mouth 60tabs Z68.33 [facility] 06/16/2015 - 37.5mg twice a day M., M.D. 06/24/2015 Tablets E66.09 Trazodone HCL 1-2 tab by mouth 60tabs G47.00 Malathi Taylor 06/16/2015 - 50mg at bedtime MMontana KaurDNatasha 06/24/2015 Tablets Bontril PDM 2 tab by mouth 180tabs Z68.33 Malathi Taylor 06/04/2014 - 35mg three times a day MMontana KaurD. 06/16/2015 Tablets E66.09 Immunizations CPT Code Status Date Vaccine Reaction Lot # U-Flu Given 02/01/2018 Influenza,Unspecified [id number] Given 02/04/2015 Flu Vaccine [id number] Given 02/23/2014 Flu Vaccine Pt received Flu Vaccine at her Pharmacy. Vital Signs Date Vital Result Comment 09/05/2018 8:40am BP Systolic 118 mmHg BP [...] H/L Range Note Laboratory test 09/05/2018 [facility] Vitamin D 25 <pending> finding 113 NAOMI Mendenhall (607)- - TSH, Ultrasenstive <pending> T4 Free - Thyroxine <pending> Hemoglobin A1c <pending> Laboratory test finding 09/05/2018 [facility] Uric Acid <pending> 113 INNOVATION RAJ (607)- - Rheumatoid Factor <pending> C Reactive Protein <pending> Sed Rate <pending> Ethyl Glucuronide 01/24/2018 [facility] Ethyl Glucuronide Negative ng/mL N 500 1 PDF SEE IMAGE Laboratory test finding 01/24/2018 [facility] Tramadol Negative ng/mL N 5 2 Gabapentin Negative ng/mL N 100 3 Zolpidem 22 Positive Cons <SEE NOTE> ng/mL N 10 4 Phentermine Positive >5000 C <SEE NOTE> ng/mL N 50 5 Citalopram/Escitalopram Positive >500 Co <SEE NOTE> ng/mL N 5 6 Urine DRG SCR 01/24/2018 [facility] Amphetamine NEGATIVE N 1000 (12PNL-PM) Barbiturate NEGATIVE N 200 Benzodiazepine NEGATIVE N 200 Buprenorphine NEGATIVE N 15 Cannabinoid NEGATIVE N 50 Cocaine NEGATIVE N 300 Methadone NEGATIVE N 300 Opiate NEGATIVE N 300 Oxycodone NEGATIVE N 300 Phencyclidine NEGATIVE N 25 7 Cocaine Panel By 01/24/2018 [facility] Benzoylecgonine Negative ng/mL N 50 8 LC/MS/MS (Cocaine) Amphetamine Panel 01/24/2018 [facility] Amphetamine Negative ng/ mL N 50 By LC/MS/MS Methamphetamine Negative ng/mL N 50 Mdma (Ecstasy) Negative ng/mL N 50 Mda Negative ng/ml N 50 Mdea Negative ng/mL N 50 9 Specimen Validity 01/24/2018 [facility] Creatinine, Urine 99 mg/ dL N >20 Panel Color YELLOW N Yellow pH 6.6 N 5.0-8.0 Specific [place] 1.022 N 1.001-1.035 10 Opiates Panel By 01/24/2018 [facility] 6-Qamar (Heroin Negative ng/ mL N 5 LC/MS/MS Metabolite) Codeine Negative ng/mL N 50 Hydrocodone Negative ng/mL N 50 Hydromorphone Negative ng/mL N 50 Morphine Negative ng/mL N 50 Norhydrocodone Negative ng/mL N 50 Noroxycodone Negative ng/mL N 50 Noroxymorphone Negative ng/mL N 50 Oxycodone Negative ng/mL N 50 Oxymorphone Negative ng/mL N 50 11 Methadone Panel By 01/24/2018 [facility] Eddp Negative ng/mL N 10 LC/MS/MS Methadone Negative ng/mL N 10 12 Buprenorphine Panel By 01/24/2018 [facility] Buprenorphine Negative ng/mL N 5 LC/MS/MS Naloxone Negative ng/mL N 10 Norbuprenorphine Negative ng/mL N 5 13 Benzodiazepines 01/24/2018 [facility] 2-Hydroxyethylflurazepam Negative N 10 Panel [...] N 10 Temazepam Negative ng/mL N 10 14 Barbiturates Panel By 01/24/2018 [facility] Butalbital Negative ng/mL N 100 LC/MS/MS Pentobarbital Negative ng/mL N 100 Phenobarbital Negative ng/mL N 100 Secobarbital Negative ng/mL N 100 15 Antidepressants Panel 01/24/2018 [facility] Amitriptyline Negative ng/mL N 20 By LC/MS/MS Clomipramine Negative ng/mL N 20 Desipramine Negative ng/mL N 20 Doxepin Negative ng/mL N 20 Fluoxetine Negative ng/mL N 20 Imipramine Negative ng/mL N 20 Norclomipramine Negative ng/mL N 20 Nordoxepin Negative ng/mL N 20 Nortriptyline Negative ng/mL N 20 Sertraline Negative ng/mL N 20 Trimipramine Negative ng/mL N 20 16 Urine Drug [place] 01/24/2018 [facility] UFT-Taigb-3-Cooh Negative ng/mL N 5 17 Buprenorphine Panel 01/10/2018 [facility] Buprenorphine Negative ng/mL N 5 18 By LC/MS/MS Naloxone Negative ng/mL N 10 Norbuprenorphine Negative ng/mL N 5 19 Methadone Panel By 01/10/2018 [facility] Eddp Negative ng/mL N 10 LC/MS/MS Methadone Negative ng/mL N 10 20 Opiates Panel By 01/10/2018 [facility] 6-Qamar (Heroin Negative ng/ mL N 5 LC/MS/MS Metabolite) Codeine Negative ng/mL N 50 Hydrocodone Negative ng/mL N 50 Hydromorphone Negative ng/mL N 50 Morphine Negative ng/mL N 50 Norhydrocodone Negative ng/mL N 50 Noroxycodone Negative ng/mL N 50 Noroxymorphone Negative ng/mL N 50 Oxycodone Negative ng/mL N 50 Oxymorphone Negative ng/mL N 50 21 Specimen Validity 01/10/2018 [facility] Creatinine, Urine 236 mg/ dL N >20 Panel Color YELLOW N Yellow pH 5.5 N 5.0-8.0 Specific [place] 1.031 N 1.001-1.035 22 Amphetamine Panel By 01/10/2018 [facility] Amphetamine Negative ng/mL N 50 LC/MS/MS Methamphetamine Negative ng/mL N 50 Mdma (Ecstasy) Negative ng/mL N 50 Mda Negative ng/ml N 50 Mdea Negative ng/mL N 50 23 Cocaine Panel 01/10/2018 [facility] Benzoylecgonine Negative N 50 24 By LC/MS/MS (Cocaine) ng/mL Urine DRG SCR 01/10/2018 [facility] Amphetamine POSITIVE Abnormal 1000 (12PNL-PM) Barbiturate NEGATIVE N 200 Benzodiazepine NEGATIVE N 200 Buprenorphine NEGATIVE N 15 Cannabinoid NEGATIVE N 50 Cocaine NEGATIVE N 300 Methadone NEGATIVE N 300 Opiate NEGATIVE N 300 Oxycodone NEGATIVE N 300 Phencyclidine NEGATIVE N 25 25 Laboratory test finding 01/10/2018 [facility] Tramadol Negative ng/mL N 5 26 Gabapentin Negative ng/mL N 100 27 Phentermine Positive >5000 C <SEE NOTE> ng/mL N 50 28 Ethyl Glucuronide 01/10/2018 [facility] Ethyl Glucuronide Negative ng/mL N 500 PDF SEE IMAGE Laboratory test 01/10/2018 [facility] Zolpidem 56 Positive N 10 29 finding Cons <SEE NOTE> ng/mL Lipid 01/10/2018 [facility] Cholesterol @ 174 mg/dL (0-200) 113 NAOMI ANTHONY (607)- - Triglyceride @ 128 mg/dL (30-200) HDL Cholesterol @ 52 mg/dL (>40) 30 Chol/HDL Ratio 3.3 RATIO 31 LDL Chol (Calc) 96 mg/dL (<130) 32 CMP 01/10/2018 [facility] Sodium 139 mmol/L (136-145) 113 NAOMI ANTHONY [...] >60 ml/min/1.73m2 (>59) GFR Interpretation <SEE NOTE> 33 CBC With Diff 01/10/2018 [facility] WBC 5.9 10*3/uL (4.1-11.0) 113 NAOMI ANTHONY (607)- - RBC 4.87 10*6/uL (4.00-5.40) HGB 13.8 g/dL (12.0-16.0) HCT 41.0 % (36.0-47.0) MCV 84.3 fL (80.0-95.0) MCH 28.4 pg (27.0-32.0) MCHC 33.7 g/dL (32.0-36.0) RDW 13.6 % (10.5-14.5) PLT 191 10*3/uL (150-450) MPV 9.4 fL (7.1-10.7) Neut % 64.6 % (35.0-75.0) Lymph % 29.5 % (16.0-52.0) [place] % 4.7 % (0.0-8.0) Eos % 0.6 % (0.0-5.0) Baso % 0.6 % (0.0-4.0) Neut # 3.8 10*3/uL (1.8-7.7) Lymph # 1.8 10*3/uL (1.2-4.8) [place] # 0.3 10*3/uL (0.0-0.8) Eos # 0.0 10*3/uL (0.0-0.5) Baso # 0.0 10*3/uL (0.0-0.2) Laboratory test 01/10/2018 [facility] Vitamin B12 @ 268 pg/mL (193-986 ) finding 113 NAOMI ANTHONY (960)- - Folate @ 5.0 ng/mL (3.1-17.5) Hemoglobin A1c 01/10/2018 [facility] Hemoglobin A1c @ 5.2 % (4.0-6.0) 34 113 NAOMI ANTHONY (785)- - Est Average Glucose 103 mg/dL Laboratory test 01/10/2018 [facility] TSH,Ultrasensitive 0.780 (0.360- 4.170) finding 113 NAOMI ANTHONY @ mIU/L (074)- - Benzodiazepines 01/10/2018 [facility] 2-Hydroxyethylflura Negative N 10 Panel [...] N 10 Temazepam Negative ng/mL N 10 35 Barbiturates Panel By 01/10/2018 [facility] Butalbital Negative ng/mL N 100 LC/MS/MS Pentobarbital Negative ng/mL N 100 Phenobarbital Negative ng/mL N 100 Secobarbital Negative ng/mL N 100 36 Antidepressants Panel 01/10/2018 [facility] Amitriptyline Negative ng/mL N 20 By LC/MS/MS Clomipramine Negative ng/mL N 20 Desipramine Negative ng/mL N 20 Doxepin Negative ng/mL N 20 Fluoxetine Negative ng/mL N 20 Imipramine Negative ng/mL N 20 Norclomipramine Negative ng/mL N 20 Nordoxepin Negative ng/mL N 20 Nortriptyline Negative ng/mL N 20 Sertraline Negative ng/mL N 20 Trimipramine Negative ng/mL N 20 37 Urine Drug 01/10/2018 [facility] AAB-Fdnaw-4-Cooh Negative N 5 38 [place] ng/mL Laboratory test 01/10/2018 [facility] 25 Hydroxy Vit D @ 31 ng/mL (31- 10 39 finding 113 INNOVATION RAJ 0) (607)- - Esr 20 mm/h (0-20) Iron Panel 01/10/2018 [facility] Iron,Total @ 90 g/dL (35-150) 113 INNOVATION RAJ (607)- - Uibc @ 220 g/dL (130-375) Tibc @ 310 g/dL (250-450) % Saturation 29 % (12-50) Basic Metabolic Panel 08/16/2016 [facility] Sodium 134 mmol/L N 133- 145 Potassium [...] 75.7 N >60 Egfr 97.3 N >60 40 CBC Auto Diff 08/16/2016 [facility] White Blood Count 8.6 10^3/uL N 3.5-10.8 [...] Cells % 0 N Laboratory test 08/16/2016 [facility] Creatinine Random 335.09 mg/dL N 41 finding Urine Laboratory test 07/21/2015 [facility] TSH (Thyroid Stim 0.83 ?IU/mL N 0.34-5. finding Horm) 60 CBC Auto Diff 07/21/2015 [facility] White Blood Count 4.8 10^3/uL N 3.5-10. [...] % 0 N Comp Metabolic Panel 07/21/2015 [facility] Sodium 137 mmol/L N 133- 145 Potassium [...] 66.9 N >60 Egfr 86.1 N >60 42 Lipid Profile 07/21/2015 [facility] Triglycerides 124 mg/dL N 43 (Trig/Chol/HDL) Cholesterol 200 mg/dL N 44 HDL Cholesterol 56.5 mg/dL N 45 LDL Cholesterol 119 mg/dL N 46 Glycohemoglobin A1c 03/16/2015 [place] Glycohemoglobin (A1c) 5.3 % 4.2- 6.3 47 eAG 105 mg/dL Laboratory test finding 03/16/2015 [place] Thyroid Stim 0.67 uIU/mL 0.36-3.74 Hormone Comprehensive Metabolic 03/16/2015 [place] Glucose 94 mg/dL 74-106 Panel BUN 16 mg/dL 7-18 Creatinine 0.9 mg/dL 0.6-1.3 Glom Filtration Rate, Estimate >60 mL/min >60 If >60 mL/min >60 48 BUN/Creat 17.7 ratio Sodium 138 mmol/L 136-145 [...] 78 U/L 45-117 CBC W/Automated Diff 03/16/2015 [place] White Blood Count 6.1 K/uL 3.1- 10.7 [...] % 40.4-72.8 Lymph % 27.9 % 17.0-46.1 [place] % 5.9 % 4.3-13.2 Eo% 0.8 % 0.0-6.6 Bas% 0.2 % 0.0-1.1 Neut# 4.00 K/uL 1.0-7.0 Lymph # 1.71 K/uL Low 1.8-7.0 [place] # 0.36 K/uL 0.3-0.9 Eos # 0.05 K/uL 0.0-0.5 Baso # 0.01 K/uL 0.0-0.1 Lipid Profile 06/04/2014 [facility] Triglycerides 238 mg/dL N 49 (Trig/Chol/HDL) Cholesterol 201 mg/dL N 50 HDL Cholesterol 48.7 mg/dL N 51 LDL Cholesterol 105 mg/dL N 52 Laboratory test 06/04/2014 [facility] TSH (Thyroid 1.06 IU/mL N 0.34- 5.60 finding Stimulating Horm) Comp Metabolic 06/04/2014 [facility] Sodium 136 mmol/L N 133-145 Panel Potassium [...] 74.5 N >60 Egfr 95.9 N >60 53 CBC Auto Diff 06/04/2014 [facility] White Blood Count 5.9 10^3/uL N 4.8-10.8 [...] Red Blood Cells % 0 N 1 Prescribed Medications: Zolpidem (Zolpidem), Phentermine (Phentermine), Citalopram (Citalopram/Escitalopram), NAPROXEN, SUMATRIPTAN 2 Prescribed Medications: Zolpidem (Zolpidem), Phentermine (Phentermine), Citalopram (Citalopram/Escitalopram), NAPROXEN, SUMATRIPTAN 3 Prescribed Medications: Zolpidem (Zolpidem), Phentermine (Phentermine), Citalopram (Citalopram/Escitalopram), NAPROXEN, SUMATRIPTAN 4 22 Positive Consistent The common brand name for Zolpidem is Edward. Prescribed Medications: Zolpidem (Zolpidem), Phentermine (Phentermine), Citalopram (Citalopram/Escitalopram), NAPROXEN, SUMATRIPTAN 5 Positive >5000 Consistent Prescribed Medications: Zolpidem (Zolpidem), Phentermine (Phentermine), Citalopram (Citalopram/Escitalopram), NAPROXEN, SUMATRIPTAN 6 Positive >500 Consistent The test is not chiral specific. Intake of either Celexa(racemic Citalopram) or Lexapro (Escitalopram) could cause positive result. Prescribed Medications: Zolpidem (Zolpidem), Phentermine (Phentermine), Citalopram (Citalopram/Escitalopram), NAPROXEN, SUMATRIPTAN 7 Prescribed Medications: Zolpidem (Zolpidem), Phentermine (Phentermine), Citalopram (Citalopram/Escitalopram), NAPROXEN, SUMATRIPTAN 8 Prescribed Medications: Zolpidem (Zolpidem), Phentermine (Phentermine), Citalopram (Citalopram/Escitalopram), NAPROXEN, SUMATRIPTAN 9 Prescribed Medications: Zolpidem (Zolpidem), Phentermine (Phentermine), Citalopram (Citalopram/Escitalopram), NAPROXEN, SUMATRIPTAN 10 Prescribed Medications: Zolpidem (Zolpidem), Phentermine (Phentermine), Citalopram (Citalopram/Escitalopram), NAPROXEN, SUMATRIPTAN 11 Prescribed Medications: Zolpidem (Zolpidem), Phentermine (Phentermine), Citalopram (Citalopram/Escitalopram), NAPROXEN, SUMATRIPTAN 12 Prescribed Medications: Zolpidem (Zolpidem), Phentermine (Phentermine), Citalopram [...] Citalopram (Citalopram/Escitalopram), NAPROXEN, SUMATRIPTAN 18 Prescribed Medications: Phentermine (Phentermine), NAPROXEN, SUMATRIPTAN Prescribed Medications: Zolpidem (Zolpidem), Phentermine (Phentermine), NAPROXEN, SUMATRIPTAN 19 Prescribed Medications: Zolpidem (Zolpidem), Phentermine (Phentermine), NAPROXEN, SUMATRIPTAN 20 Prescribed Medications: Zolpidem (Zolpidem), Phentermine (Phentermine), NAPROXEN, SUMATRIPTAN 21 Prescribed Medications: Zolpidem (Zolpidem), Phentermine (Phentermine), NAPROXEN, SUMATRIPTAN 22 Prescribed Medications: Zolpidem (Zolpidem), Phentermine (Phentermine), NAPROXEN, SUMATRIPTAN 23 Prescribed Medications: Zolpidem (Zolpidem), Phentermine (Phentermine), NAPROXEN, SUMATRIPTAN 24 Prescribed Medications: Zolpidem (Zolpidem), Phentermine (Phentermine), NAPROXEN, SUMATRIPTAN 25 Prescribed Medications: Zolpidem (Zolpidem), Phentermine (Phentermine), NAPROXEN, SUMATRIPTAN 26 Prescribed Medications: Zolpidem (Zolpidem), Phentermine (Phentermine), NAPROXEN, SUMATRIPTAN 27 Prescribed Medications: Zolpidem (Zolpidem), Phentermine (Phentermine), NAPROXEN, SUMATRIPTAN 28 Positive >5000 Consistent Prescribed Medications: Zolpidem (Zolpidem), Phentermine (Phentermine), NAPROXEN, SUMATRIPTAN 29 56 Positive Consistent The common brand name for Zolpidem is Ambien. Prescribed Medications: Zolpidem (Zolpidem), Phentermine (Phentermine), NAPROXEN, SUMATRIPTAN 30 PER NCEP ATP III GUIDELINES: RESULTS LOWER THAN 40 MG/DL ARE SUGGESTIVE OF INCREASED RISK FOR CORONARY ARTERY DISEASE. RESULTS > OR=TO 60 MG/DL ARE CONSIDERED A NEGATIVE RISK FACTOR. 31 INTERPRETATION OF CHOL-HDL RATIO CHD RISK FEMALE MALE VERY HIGH >8.3 >14.3 HIGH 5.6- 8.3 6.7- 14.3 AVERAGE 3.7- 5.6 4.0- 6.7 BELOW AVERAGE 2.5- 3.7 2.7- 4.0 PROTECTED <2.5 <2.7 32 PER NCEP ATP III GUIDELINES: OPTIMAL < 100 NEAR OPTIMAL 100 - 129 BORDERLINE HIGH 130 - 159 HIGH 160 - 189 VERY HIGH > 189 33 NORMAL KIDNEY FUNCTION OR MILD DISEASE - GFR >OR=60 CHRONIC KIDNEY DISEASE - GFR 15 - 59 RENAL FAILURE - GFR <15 Est. GFR calculation based on the MDRD study equation, which assumes a steady state for creatinine. Est. GFR should not be used for medication dosing. 34 Performed using Siemens [place] immunoassay. Care must be taken when interpreting HbA1c results in patients with a hemoglobin variant or decreased erythrocyte lifespan. Values 5.7 - 6.4% suggest prediabetes. Values >=6.5% are diagnostic for diabetes. REFERENCE: DIABETES CARE 2018: 41(S13-S27). 35 Prescribed Medications: Zolpidem (Zolpidem), Phentermine (Phentermine), NAPROXEN, SUMATRIPTAN 36 Prescribed Medications: Zolpidem (Zolpidem), Phentermine (Phentermine), NAPROXEN, SUMATRIPTAN 37 Prescribed Medications: Zolpidem (Zolpidem), Phentermine (Phentermine), NAPROXEN, SUMATRIPTAN 38 Prescribed Medications: Zolpidem (Zolpidem), Phentermine (Phentermine), NAPROXEN, SUMATRIPTAN 39 A REVIEW OF THE LITERATURE SUGGESTS THE FOLLOWING RANGES FOR THE CLASSIFICATION OF 25-OH VITAMIN D STATUS: VITAMIN D STATUS 25-OH VITAMIN D DEFICIENCY <20 NG/ML INSUFFICIENCY 20-30 NG/ML SUFFICIENCY 31 - 100 NG/ML TOXICITY > 100 NG/ML A PEDIATRIC REFERENCE RANGE HAS NOT BEEN ESTABLISHED USING THIS METHOD. 40 Because ethnic data is not always readily [...] 15-29 5 Kidney failure <15 (or dialysis) 41 [id number] 42 Because ethnic data is not always readily [...] 15-29 5 Kidney failure <15 (or dialysis) 43 Desirable <150 Borderline high 150-199 High 200-499 Very High >500 44 Desirable <200 Borderline high 200-239 High >239 45 Low <40 Desirable: 40-60 High: >60 46 Desirable: <100 mg/dL Near Optimal: 100-129 mg/dL Borderline High: 130-159 mg/dL High: 160-189 mg/dL Very High: >189 mg/dL 47 Elevated levels of HbA1c suggest the need for more aggressive treatment of glycemia. The [place] [employer] recommends that a primary goal of therapy should be a HbA1c of <7% and that physicians should re-evaluate the treatment regimen in patients with HbA1c values consistently >8%. 48 Note: Persistent reduction for 3 months or more in an eGFR <60 mL/min/1.73 m2 defines CKD. Patients with eGFR values >/=60 mL/min/1.73 m2 may also have CKD if evidence of persistent proteinuria is present. The original MDRD equation for estimated GFR is not valid for patients less than 18 years of age. Additional information may be found at www.kdoqi.org. 49 Desirable <150 Borderline high 150-199 High 200-499 Very High >500 50 Desirable <200 Borderline high 200-239 High >239 51 Low <40 Desirable: 40-60 High: >60 52 Desirable <100 Near Optimal 100-129 Borderline high 130-159 High 160-189 Very High >189 53 Because ethnic data is not always readily [...] dialysis) Procedures Date Code Description Status 07/21/2015 58666 Visual Screening Test Completed 07/21/2015 67297 Audiometry, Bekesy, Screening Completed 06/04/2014 96682 Visual Screening Test Completed 06/04/2014 57448 Audiometry, Bekesy, Screening Completed Encounters Type Date Location Provider Dx Diagnosis Office Visit 09/05/2018 [facility] Sheldon Moss G43.009 Migraine w/o aura, 8:45a N.P. 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 K59.00 Constipation, unspecified E66.09 Other obesity due to excess calories Z79.899 Other snf (current) drug therapy E55.9 Vitamin D deficiency, unspecified [facility] w/o auraMont[place] MNatashaDNatasha 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 K59.00 Constipation, unspecified E66.09 Other obesity due to excess calories [facility] Migraine w/o auraMont[place] MNatashaD. 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 K59.00 Constipation, unspecified E66.09 Other obesity due to excess calories Office Visit 09/13/2017 8:00a [facility] BrandonMalathi crowe G43.009 Migraine w/o auraMnotana MNatashaD. 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 K59.00 Constipation, unspecified E66.09 Other obesity due to excess calories Office Visit 08/12/2017 8:00a [facility] Malathi Taylor G43.009 Migraine w/o [place] [...] w abnormal findings Office Visit 07/15/2017 8:00a [facility] Malathi Taylor G43.009 Beatriz w/o [place] alarcon M.D. 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 K59.00 Constipation, unspecified E66.09 Other obesity due to excess calories Office Visit 06/12/2017 9:00a [facility] Malathi Taylor G43.009 Migraine w/o [place] [...] to excess calories Office Visit 05/10/2017 8:45a [facility] Fausto Taylorronny G43.009 Migraine w/o [place] alarcon M.D. 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 K59.00 Constipation, unspecified E66.09 Other obesity due to excess calories Office Visit 04/12/2017 8:45a [facility] Brandon, Ahleslye G43.009 Migraine w/o auraMont[place] [...] K59.00 Constipation, unspecified Office Visit 02/11/2017 8:30a [facility] Ramses Lilly 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.4 Kidney donor R53.81 Other malaise K30 Functional dyspepsia K59.00 Constipation, unspecified K44.9 Diaphragmatic hernia without obstruction or gangrene L20.9 Atopic dermatitis, unspecified J30.9 Allergic rhinitis, unspecified E66.01 Morbid (severe) obesity due to excess calories K21.9 Gastro-esophageal reflux disease without esophagitis G43.009 Migraine w/o aura, not intractable, w/o status migrainosus Office Visit 12/13/2016 8:30a [facility] Ramses Lilly [facility] E66.01 Morbid (severe) obesity due to excess calories F41.9 Anxiety disorder, unspecified G47.00 Insomnia, unspecified K21.9 Gastro-esophageal reflux disease without esophagitis Z52.4 Kidney donor Office Visit 11/12/2016 8:30a [facility] Malathi Taylro, E66.01 Morbid (severe) M.D. obesity due to excess calories F41.9 Anxiety disorder, 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.4 Kidney donor K21.9 Gastro-esophageal reflux disease without esophagitis R53.81 Other malaise K30 Functional dyspepsia K59.00 Constipation, unspecified K44.9 Diaphragmatic hernia without obstruction or gangrene Office Visit 10/12/2016 11:45a [facility] Malathi Taylor, E66.01 Morbid (severe) M.D. obesity due to excess calories F41.9 Anxiety disorder, 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.4 Kidney donor K21.9 Gastro-esophageal reflux disease without esophagitis R53.81 Other malaise K30 Functional dyspepsia K59.00 Constipation, unspecified K44.9 Diaphragmatic hernia without obstruction or gangrene Office Visit 09/14/2016 8:45a [facility] Malathi Taylor, E66.01 Morbid (severe) M.D. 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 obesity due to excess calories F41.9 Anxiety disorder, 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.4 Kidney donor K21.9 Gastro-esophageal reflux disease without esophagitis R53.81 Other malaise K30 Functional dyspepsia K59.00 Constipation, unspecified K44.9 Diaphragmatic hernia without obstruction or gangrene Office Visit 05/18/2016 8:45a [facility] Malathi Taylor, E66.01 Morbid (severe) M.D. obesity due to excess calories F41.9 Anxiety disorder, 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.4 Kidney donor K21.9 Gastro-esophageal reflux disease without esophagitis R53.81 Other malaise K30 Functional dyspepsia K59.00 Constipation, unspecified K44.9 Diaphragmatic hernia without obstruction or gangrene Office Visit 04/17/2016 8:30a [facility] Malathi Taylor, E66.01 Morbid (severe) M.D. obesity due to excess calories F41.9 Anxiety disorder, 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.4 Kidney donor K21.9 Gastro-esophageal reflux disease without esophagitis R53.81 Other malaise K30 Functional dyspepsia K59.00 Constipation, unspecified K44.9 Diaphragmatic hernia without obstruction or gangrene Office Visit 03/16/2016 4:30p [facility] Malathi Taylor, E66.01 Morbid (severe) M.D. obesity due to excess calories F41.9 Anxiety disorder, 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.4 Kidney donor K21.9 Gastro-esophageal reflux disease without esophagitis R53.81 Other malaise K30 Functional dyspepsia K59.00 Constipation, unspecified K44.9 Diaphragmatic hernia without obstruction or gangrene Office Visit 02/17/2016 8:30a [facility] Malathi Taylor, E66.01 Morbid (severe) M.D. obesity due to excess calories F41.9 Anxiety disorder, 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.4 Kidney donor K21.9 Gastro-esophageal reflux disease without esophagitis R53.81 Other malaise K30 Functional dyspepsia K59.00 Constipation, unspecified K44.9 Diaphragmatic hernia without obstruction or gangrene Office Visit 01/17/2016 10:45a [facility] Malathi Taylor, E66.01 Morbid (severe) M.D. obesity due to excess calories F41.9 Anxiety disorder, 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.4 Kidney donor K21.9 Gastro-esophageal reflux disease without esophagitis R53.81 Other malaise K30 Functional dyspepsia K59.00 Constipation, unspecified K44.9 Diaphragmatic hernia without obstruction or gangrene Office Visit 12/16/2015 9:00a [facility] Malathi Taylor, E66.01 Morbid (severe) M.D. 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 obesity due to excess calories Z52.4 Kidney donor F41.9 Anxiety disorder, unspecified R53.81 Other malaise K21.9 Gastro-esophageal reflux disease without esophagitis K30 Functional dyspepsia K44.9 Diaphragmatic hernia without obstruction or gangrene K59.00 Constipation, unspecified G47.00 Insomnia, unspecified Office Visit 08/19/2015 11:15a [facility] Malathi Taylor, E66.01 Morbid (severe) M.D. obesity due to excess calories Z52.4 Kidney donor F41.9 Anxiety disorder, unspecified R53.81 Other malaise K21.9 Gastro-esophageal reflux disease without esophagitis K30 Functional dyspepsia K44.9 Diaphragmatic hernia without obstruction or gangrene K59.00 Constipation, unspecified G47.00 Insomnia, unspecified Office Visit 07/21/2015 9:00a [facility] Malathi Taylor Z00.01 Encounter for Rula [...] (BMI) 34.0-34.9, adult Office Visit 06/24/2015 2:00p [facility] Malathi Taylor, E66.01 Morbid (severe) M.D. 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 780.79 Malaise And Fatigue Other 300.00 Anxiety State Unspec V59.4 Donor Kidney Office Visit 12/14/2014 8:30a [facility] Ramses Lilly [facility] 278.01 Obesity Morbid 780.79 Malaise And Fatigue Other 300.00 Anxiety State Unspec V59.4 Donor Kidney Office Visit 11/15/2014 10:30a [facility] Malathi Taylor M.D. 278.02 Overweight 780.79 Malaise And Fatigue Other V85.33 Body Mass Index 33.0-33.9 Adult 300.00 Anxiety State Unspec Office Visit 10/05/2014 11:30a [facility] Malathi Taylor M.D. 278.02 Overweight 780.79 Malaise And Fatigue Other V85.33 Body Mass Index 33.0-33.9 Adult 300.00 Anxiety State Unspec Office Visit 09/01/2014 4:45p [facility] Malathi Taylor M.D. 278.02 Overweight 780.79 Malaise And Fatigue Other V85.33 Body Mass Index 33.0-33.9 Adult 300.00 Anxiety State Unspec Office Visit 07/30/2014 8:30a [facility] Malathi Taylor M.D. 278.02 Overweight 780.79 Malaise And Fatigue Other V85.33 Body Mass Index 33.0-33.9 Adult 300.00 Anxiety State Unspec Office Visit 07/02/2014 8:45a [facility] Malathi Taylor M.D. 278.02 Overweight 780.79 Malaise And Fatigue Other V85.33 Body Mass Index 33.0-33.9 Adult Office Visit 06/04/2014 10:45a [facility] Malathi Taylor V70.0 Examination General [place] M.D. [facility] Routine [facility] 278.02 Overweight 780.79 Malaise And Fatigue Other V85.33 Body Mass Index 33.0-33.9 Adult Plan of Treatment Future Appointment(s):09/10/2018 9:00 am - Sheldon Moss NJose at [facility]10/07/2018 8:30 am - Malathi Taylor M.D. at [facility]
[2018-09-28 13:12] VITALS: BP 115/78
--- NOTE | 2018-09-28 13:26 | UC ---
Throat Pain/Nasal Mando HPI - HPI Summary HPI Summary: 2 days of nasal drainage and general sinus discomfort---patient then developed a crusted sore with swelling on left upper lip with tenderness and swelling - History of Current Complaint Chief Complaint: UCSkin Stated Complaint: INFECTION Time Seen by Provider: 09/28/18 13:10 Hx Obtained From: Patient Hx Last Menstrual Period: abalsion ?: No Onset/Duration: Sudden Onset, Lasting Days - 1, Still Present Pain Intensity: 4 Pain Scale Used: 0-10 Numeric Cough: None Associated Signs & Symptoms: Positive: Nasal Discharge - Allergies/Home Medications Allergies/Adverse Reactions: Allergies Allergy/AdvReac Type Severity Reaction Status Date / Time Penicillins Allergy Severe Anaphylatic Verified 09/28/18 13:16 Shock Home Medications: Home Medications ALPRAZolam [Xanax] 0.25 mg PO DAILY WITH MEAL 09/28/18 [History Confirmed ] Citalopram Hydrobromide [Citalopram HBr] 40 mg PO DAILY WITH MEAL 09/28/18 [ History Confirmed 09/28/18] Fenofibrate(NF) [Tricor(NF)] 145 mg PO DAILY 09/28/18 [History Confirmed ] Zolpidem Tartrate 10 mg PO DAILY WITH MEAL 09/28/18 [History Confirmed 09/28/18] PMH/Surg Hx/FS Hx/Imm Hx Previously Healthy: No - kidney donor, Endocrine History: Dyslipidemia Psychological History: Depression - Surgical History Surgical History: Yes Surgery Procedure, Year, and Place: tubal ligation, , uterine ablation , knee surgery, tonsillectomy. Kidney Donated 2013 - Family History Known Family History: Positive: None - Social History Occupation: Employed Full-time Lives: With Family Alcohol Use: None Substance Use Type: None Smoking Status (MU): Never Smoked Tobacco Review of Systems All Other Systems Reviewed And Are Negative: Yes Constitutional: Positive: Negative Skin: Positive: Other - crusted sore on left side of upper lip with swelling Eyes: Positive: Negative ENT: Positive: Negative Respiratory: Positive: Negative Cardiovascular: Positive: Negative Gastrointestinal: Positive: Negative Genitourinary: Positive: Negative Motor: Positive: Negative Neurovascular: Positive: Negative Musculoskeletal: Positive: Negative Neurological: Positive: Negative Psychological: Positive: Negative Is Patient Immunocompromised?: No Physical Exam Triage Information Reviewed: Yes Appearance: Well-Appearing, No Pain Distress, Well-Nourished Vital Signs: Initial Vital Signs Temp 97.3 F 09/28/18 13:07 Pulse 88 09/28/18 13:07 Resp 18 09/28/18 13:07 BP 115/78 09/28/18 13:07 Pulse Ox 98 09/28/18 13:07 Vital Signs Reviewed: Yes Eye Exam: Normal Eyes: Positive: Conjunctiva Clear ENT Exam: Normal ENT: Positive: Normal ENT inspection, Hearing grossly normal, Pharynx normal, Nasal congestion, Nasal drainage, Uvula midline. Negative: Tonsillar swelling, Tonsillar exudate, Trismus, Muffled voice, Hoarse voice, Dental tenderness, Sinus tenderness Dental Exam: Normal Neck exam: Normal Neck: Positive: Supple, Nontender, No Lymphadenopathy Respiratory Exam: Normal Respiratory: Positive: Chest non-tender, Lungs clear, Normal breath sounds, No respiratory distress, No accessory muscle use Cardiovascular Exam: Normal Cardiovascular: Positive: RRR, No Murmur, Pulses Normal, Brisk Capillary Refill Musculoskeletal Exam: Normal Musculoskeletal: Positive: Strength Intact, ROM Intact, No Edema Neurological Exam: Normal Neurological: Positive: Alert, Muscle Tone Normal Psychological Exam: Normal Skin: Positive: Other - crusted sore with localized swelling on left upper lip Throat Pain/Nasal Course/Dx - Course Course Of Treatment: swab for hsv--start clindamycin and acyclovir follow with pcp - Differential Dx/Diagnosis Provider Diagnosis: Wound infection Discharge - Sign-Out/Discharge Documenting (check all that apply): Patient Departure All imaging exams completed and their final reports reviewed: No Studies - Discharge Plan Condition: Stable Disposition: HOME Prescriptions: Acyclovir* [Zovirax 400 MG TAB*] 400 mg PO TID 7 Days #21 tab Clindamycin Cap(NF) [Clindamycin Cap 300 mg Cap(NF)] 300 mg PO TID #21 cap Patient Education Materials: Wound Infection (ED), Warm Compress or Soak (ED) Referrals: Malathi Taylor MD [Primary Care Provider] - 4 Days - Billing Disposition and Condition Condition: STABLE Disposition: Home - Attestation Statements Provider Attestation: I did not see or exam this patient. I was available for consult.
[2018-09-30 22:09] LABS: HSV 1 PCR Positive (Negative); Herpes Source mouth/lips
== END 2018-09-28 13:40 | disposition home or self-care (01) ==
LOC: UCEAST 12:20
DX: L08.9 Local infection of the skin and subcutaneous tissue, unspecified (principal); E78.5 Hyperlipidemia, unspecified; F32.9 Major depressive disorder, single episode, unspecified; Z88.0 Allergy status to penicillin
CPT/HCPCS: 87529; 99212; G0463

== ENCOUNTER 2019-02-25 05:49 | Inpatient (IN) | payer BC ==
[~2019-02-25 05:49] MED LIST: Buffered Lidocaine 1% SYRIN* 1 ML/SYRINGE INTRADERM ONE; DiMENhydriNATE IV* 50 MG/ML VIAL IV PUSH PRN; HYDROmorphone INJ1* 1 MG/ML SYRINGE IV PRN; Naloxone* 0.4 MG/ML 1 ML VIAL IV PRN; PROCHLORPERAZINE INJ 5 MG/ML 2 ML VIAL IV PRN; Scopolamine 1.5 mg* PATCH TRANSDERM PRN
--- OUTSIDE RECORDS SUMMARY | 2019-02-25 05:52 | XMS REPORT | Continuity of Care Document ---
:1980 External Reference #:[id number] Author Name Malathi Taylor M.D. 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 Tablets tab @ at bedtime Medical Compression wear compression 2units R60.0 Malathi Taylor 09/19/2018 Stockings/Female/15- stockings for 12hr M., M.D. 20MMHG/Knee/MD/Short per day and remove for 12 hours. Misc Vitamin D take 1 capsule by 1caps E55.9 Malathi Taylor 09/10/2018 (Ergocalciferol) mouth Once A Month M., M.D. On The First [id number] Capsules Fenofibrate 1 by mouth every 90tabs E78.2 Malathi Taylor 09/10/2018 145mg day M., M.D. Tablets Citalopram take one tablet by 90tabs F41.9 Malathi Taylor 03/06/2018 Hydrobromide mouth once daily M., M.D. 40mg Tablets Anucort-HC [address] of rectum 24units Malathi Taylor 06/21/2017 25mg twice a day as M., M.D. Suppository needed History Medications Xanax 1 tabs by mouth 150tabs F41.9 [facility] 10/29/2018 - 0.25mg Tablets three times a M., M.D. 10/28/2018 day and 2 tabs po qhs Phendimetrazine 1 tab by mouth 90tabs E66.09 [facility] 09/19/2018 - Tartrate three times a M., M.D. 02/03/2019 35mg Tablets day as needed Xanax 1 tab by mouth 90tabs F41.9 [facility] 09/05/2018 - 0.25mg Tablets three times a M., M.D. 10/29/2018 day as needed for anxiety Immunizations CPT Code Status Date Vaccine Reaction Lot # U-[id number] Given 02/01/2018 Influenza,Unspecified [id number] Given 02/04/2015 Flu Vaccine [id number] Given 02/23/2014 Flu Vaccine Pt received Flu Vaccine at her Pharmacy. Vital Signs Date Vital Result Comment 02/24/2019 8:39am BP Systolic 115 mmHg BP Diastolic 62 mmHg Height 63.5 inches 5'3.50" Weight 220.00 lb BMI (Body Mass Index) 38.4 kg/m2 Heart Rate 74 /min Respiratory Rate 16 /min 02/03/2019 8:38am BP Systolic 115 mmHg BP Diastolic 65 mmHg Height 63.5 inches 5'3.50" Weight 224.00 lb BMI (Body Mass Index) 39.1 kg/m2 Heart Rate 104 /min Respiratory Rate 16 /min Results Test Acquired Date Facility Test Result H/L Range Note Citalopram/E 12/01/2018 [facility] Citalopram/ Positive >20 Normal 0.2 1 scitalopram Escitalopra Con <SEE NOTE> m ng/mL PDF SEE IMAGE Laboratory test 12/01/2018 [facility] Ethyl Glucuronide Negative ng/mL Normal 10 2 finding Gabapentin Negative ng/mL Normal 0.5 3 Tramadol Negative ng/mL Normal 0.5 4 Cyclobenzaprine Negative Inconsi <SEE NOTE> ng/mL Abnormal 0.[address] SCR 12/01/2018 [facility] Amphetamine NEGATIVE Normal 50 W/Out THC Barbiturate NEGATIVE Normal 20 Benzodiazepine POSITIVE Abnormal 1.5 Cocaine NEGATIVE Normal 5 Methadone NEGATIVE Normal 5 Methamphetamine POSITIVE Abnormal 40 Opiate NEGATIVE Normal 10 Phencyclidine NEGATIVE Normal 1 6 Antidepressant PNL 12/01/2018 [facility] Amitriptyline Negative Normal 0.5 (Oral-LC/MS/MS ng/mL Clomipramine Negative ng/mL Normal 0.5 Desipramine Negative ng/mL Normal 0.5 Doxepin Negative ng/mL Normal 0.5 Fluoxetine Negative ng/mL Normal 0.5 Imipramine Negative ng/mL Normal 0.5 Nortriptyline Negative ng/mL Normal 0.5 Sertraline Negative ng/mL Normal 0.5 Trimipramine Negative ng/mL Normal 0.5 7 Methadone Panel 12/01/2018 [facility] Methadone Negative ng/mL Normal 1 (Oral-LC/MS/MS) Eddp Negative ng/mL Normal 0.2 8 Opiate Panel 12/01/2018 [facility] 6-Qamar (Heroin Negative Normal 0.5 (Oral-LC/MS/MS) Metabolite) ng/mL Codeine Negative ng/mL Normal 0.5 Hydrocodone Negative ng/mL Normal 0.5 Hydromorphone Negative ng/mL Normal 0.5 Morphine Negative ng/mL Normal 1 Oxycodone Negative ng/mL Normal 0.5 Oxymorphone Negative ng/mL Normal 0.5 9 Cocaine Panel 12/01/2018 [facility] Cocaine Negative ng/mL Normal 0.5 (Oral-LC/MS/MS Benzoylecgonine Negative ng/mL Normal 1 10 Buprenorphine PNL 12/01/2018 [facility] Buprenorphine Negative Normal 0.05 (Oral -LC/MS/MS) ng/mL Norbuprenorphine Negative ng/mL Normal 0.5 Naloxone Negative ng/mL Normal 0.1 11 Barbiturate PNL 12/01/2018 [facility] Butalbital Negative ng/mL Normal 10 (Oral-L C/MS/MS) Pentobarbital Negative ng/mL Normal 10 Phenobarbital Negative ng/mL Normal 10 Secobarbital Negative ng/mL Normal 10 12 Benzodiazepine PNL 12/01/2018 [facility] 7-Aminoclonazepam Negative Normal 0.2 (Oral-LC/MS/MS) ng/mL Alprazolam 1.67 Positive Co <SEE NOTE> ng/mL Normal 0.2 13 Clonazepam Negative ng/mL Normal 0.2 Diazepam Negative ng/mL Normal 0.2 Lorazepam Negative ng/mL Normal 0.2 Nordiazepam Negative ng/mL Normal 0.2 Oxazepam Negative ng/mL Normal 0.2 Temazepam Negative ng/mL Normal 0.2 Chlordiazepoxide Negative ng/mL Normal 0.2 Midazolam Negative ng/mL Normal 0.2 Prazepam Negative ng/mL Normal 0.2 Estazolam Negative ng/mL Normal 0.2 14 Amphetamine Panel 12/01/2018 [facility] Amphetamine Negative ng/ mL Normal 0.5 (Oral -LC/MS/MS) Methamphetamine Negative ng/mL Normal 0.5 Mda Negative ng/mL Normal 1 Mdea Negative ng/mL Normal 0.5 Mdma Negative ng/mL Normal 0.5 15 Oral [place] F[facility] 12/01/2018 [facility] Comment: See Components Normal 16 Practice Herpes Simplex 09/28/2018 [facility] Herpes Source mouth/lips PCR HSV 1 PCR Positive Abnormal Negative HSV 2 PCR Negative Negative 17 Laboratory test 09/05/2018 [facility] 25 Hydroxy Vit 17 ng/mL Low (31- 100) 18 finding 113 [employer] RAJ D @ (841)- - TSH,Ultrasensitive @ 1.300 mIU/L (0.360-4.170) Free Thyroxine @ 0.86 ng/dL (0.76-1.46) Hemoglobin A1c 09/05/2018 [facility] Hemoglobin A1c @ 5.1 % (4.0-6.0) 19 113 Appear (908)- - Est Average Glucose 100 mg/dL CBC With Diff 09/05/2018 [facility] WBC 6.0 10*3/uL (4.1-11.0) 113 [employer] RAJ (658)- - RBC 4.58 10*6/uL (4.00-5.40) HGB 12.9 g/dL (12.0-16.0) HCT 38.7 % (36.0-47.0) MCV 84.5 fL (80.0-95.0) MCH 28.1 pg (27.0-32.0) MCHC 33.3 g/dL (32.0-36.0) RDW 13.8 % (10.5-14.5) PLT 222 10*3/uL (150-450) MPV 8.3 fL (7.1-10.7) Neut % 68.1 % (35.0-75.0) Lymph % 25.2 % (16.0-52.0) [place] % 4.7 % (0.0-8.0) Eos % 1.5 % (0.0-5.0) Baso % 0.5 % (0.0-4.0) Neut # 4.1 10*3/uL (1.8-7.7) Lymph # 1.5 10*3/uL (1.2-4.8) [place] # 0.3 10*3/uL (0.0-0.8) Eos # 0.1 10*3/uL (0.0-0.5) Baso # 0.0 10*3/uL (0.0-0.2) CMP 09/05/2018 [facility] Sodium 139 mmol/L (136-145) 113 [employer] RAJ (607)- - Potassium 4.2 mmol/L (3.6-5.2) Chloride [...] >60 ml/min/1.73m2 (>59) GFR Interpretation <SEE NOTE> 20 Laboratory test 09/05/2018 [facility] Uric Acid 5.1 mg/dL (2.6-6.0) finding 113 [employer] RAJ (607)- - Rheumatoid Factor @ <15 IU/mL (0-15) C Reactive Protein @ 1.1 mg/dL High (0.0-0.5) Esr 23 mm/h High (0-20) Lipid 09/05/2018 [facility] Cholesterol @ 189 mg/dL (0-200) 113 NAOMI ANTHONY (607)- - Triglyceride @ 248 mg/dL High (30-200) HDL Cholesterol @ 53 mg/dL (>40) 21 Chol/HDL Ratio 3.6 RATIO 22 LDL Chol (Calc) 86 mg/dL (<130) 23 1 Positive >20 Consistent 2 Prescribed Medications: Cyclobenzaprine (Cyclobenzaprine), Alprazolam ( Alprazolam), Citalopram (Citalopram/Escitalopram), NAPROXEN, FENOFIBRATE 3 Prescribed Medications: Cyclobenzaprine (Cyclobenzaprine), Alprazolam ( Alprazolam), Citalopram (Citalopram/Escitalopram), NAPROXEN, FENOFIBRATE 4 Prescribed Medications: Cyclobenzaprine (Cyclobenzaprine), Alprazolam ( Alprazolam), Citalopram (Citalopram/Escitalopram), NAPROXEN, FENOFIBRATE 5 Negative Inconsistent Prescribed Medications: Cyclobenzaprine (Cyclobenzaprine), Alprazolam ( Alprazolam), Citalopram (Citalopram/Escitalopram), NAPROXEN, FENOFIBRATE 6 Prescribed Medications: Cyclobenzaprine (Cyclobenzaprine), Alprazolam ( Alprazolam), Citalopram (Citalopram/Escitalopram), NAPROXEN, FENOFIBRATE 7 Prescribed Medications: Cyclobenzaprine (Cyclobenzaprine), Alprazolam ( Alprazolam), Citalopram (Citalopram/Escitalopram), NAPROXEN, FENOFIBRATE 8 Prescribed Medications: Cyclobenzaprine (Cyclobenzaprine), Alprazolam ( Alprazolam), Citalopram (Citalopram/Escitalopram), NAPROXEN, FENOFIBRATE 9 Prescribed Medications: Cyclobenzaprine (Cyclobenzaprine), Alprazolam ( Alprazolam), Citalopram (Citalopram/Escitalopram), NAPROXEN, FENOFIBRATE 10 Prescribed Medications: Cyclobenzaprine (Cyclobenzaprine), Alprazolam ( Alprazolam), Citalopram (Citalopram/Escitalopram), NAPROXEN, FENOFIBRATE 11 Prescribed Medications: Cyclobenzaprine (Cyclobenzaprine), Alprazolam ( Alprazolam), Citalopram (Citalopram/Escitalopram), NAPROXEN, FENOFIBRATE 12 Prescribed Medications: Cyclobenzaprine (Cyclobenzaprine), Alprazolam ( Alprazolam), Citalopram (Citalopram/Escitalopram), NAPROXEN, FENOFIBRATE 13 1.67 Positive Consistent 14 Prescribed Medications: Cyclobenzaprine (Cyclobenzaprine), Alprazolam ( Alprazolam), Citalopram (Citalopram/Escitalopram), NAPROXEN, FENOFIBRATE 15 Prescribed Medications: Cyclobenzaprine (Cyclobenzaprine), Alprazolam ( Alprazolam), Citalopram (Citalopram/Escitalopram), NAPROXEN, FENOFIBRATE 16 Prescribed Medications: Cyclobenzaprine (Cyclobenzaprine), Alprazolam ( Alprazolam), Citalopram (Citalopram/Escitalopram), NAPROXEN, FENOFIBRATE 17 ADDITIONAL INFORMATION This test has been modified from the bead worker sewing's instructions. Its performance characteristics were determined by [facility] in a manner consistent with CLIA requirements. This test has not been cleared or approved by the U.S. Food and Drug Administration. Test Performed by: [facility] [place] - [address] [address] 18 A REVIEW OF THE LITERATURE SUGGESTS THE FOLLOWING RANGES FOR THE CLASSIFICATION OF 25-OH VITAMIN D STATUS: VITAMIN D STATUS 25-OH VITAMIN D DEFICIENCY <20 NG/ML INSUFFICIENCY 20-30 NG/ML SUFFICIENCY 31 - 100 NG/ML TOXICITY > 100 NG/ML A PEDIATRIC REFERENCE RANGE HAS NOT BEEN ESTABLISHED USING THIS METHOD. 19 Performed using Siemens Jasper immunoassay. Care must be taken when interpreting HbA1c results in patients with a hemoglobin variant or decreased erythrocyte lifespan. Values 5.7 - 6.4% suggest prediabetes. Values >=6.5% are diagnostic for diabetes. REFERENCE: DIABETES CARE 2018: 41(S13-S27). 20 NORMAL KIDNEY FUNCTION OR MILD DISEASE - GFR >OR= 60 CHRONIC KIDNEY DISEASE - GFR 15 - 59 RENAL FAILURE - GFR <15 Est. GFR calculation based on the MDRD study equation, which assumes a steady state for creatinine. Est. GFR should not be used for medication dosing. 21 PER NCEP ATP III GUIDELINES: RESULTS LOWER THAN 40 MG/DL ARE SUGGESTIVE OF INCREASED RISK FOR CORONARY ARTERY DISEASE. RESULTS > OR = TO 60 MG/DL ARE CONSIDERED A NEGATIVE RISK FACTOR. 22 INTERPRETATION OF CHOL-HDL RATIO CHD RISK FEMALE MALE VERY HIGH >8.3 >14.3 HIGH 5.6- 8.3 6.7- 14.3 AVERAGE 3.7- 5.6 4.0- 6.7 BELOW AVERAGE 2.5- 3.7 2.7- 4.0 PROTECTED <2.5 <2.7 23 PER NCEP ATP III GUIDELINES: OPTIMAL < 100 NEAR OPTIMAL 100 - 129 BORDERLINE HIGH 130 - 159 HIGH 160 - 189 VERY HIGH > 189 Procedures Description No Information Available Medical Devices Description No Information Available Encounters Type Date Location Provider Dx Diagnosis Office Visit 02/24/2019 [facility] Malathi Taylor, E78.2 Mixed hyperlipidemia 8:30a M.D. 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 Z79.899 [facility] drug therapy R60.0 Localized edema Office Visit 02/03[facility]2019 8[facility] Mixed hyper[facility] Rula Boyle 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 Z79.899 Other [facility] (current) drug therapy R60.0 Localized edema Office Visit 01/01/2019 10:45a [facility] Mixed hyperlipidemia Rula Boyle 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 02/24/2019 L20.9 Atopic dermatitis, unspecified Malathi Taylor M.D. 02/24/2019 J30.9 Allergic rhinitis, unspecified Malathi Taylor M.D. 02/24/2019 K21.9 Gastro-esophageal reflux disease without Malathi Taylor M.D. esophagitis 02/24/2019 K30 Functional dyspepsia Malathi Taylor M.D. 02/24/2019 K44.9 Diaphragmatic hernia without obstruction or Malathi Taylor M.D. gangrene 02/24/2019 K59.00 Constipation, unspecified Malathi Taylor M.D. 02/24/2019 E66.09 Other obesity due to excess calories Malathi Taylor M.D. 02/24/2019 E55.9 Vitamin D deficiency, unspecified Malathi Taylor M.D. 02/24/2019 M54.6 Pain in thoracic spine Malathi Taylor M.D. 02/24/2019 M54.5 Low back pain Malathi Taylor M.D. 02/24/2019 M54.17 Radiculopathy, lumbosacral region Malathi Taylor M.D. 02/24/2019 G43.009 Migraine without aura, not intractable, Malathi Taylor M.D. without status migrainosus 02/24/2019 G47.00 Insomnia, unspecified Malathi Taylor M.D. 02/24/2019 F41.9 Anxiety disorder, unspecified Malathi Taylor M.D. 02/24/2019 R53.81 Other malaise Malathi Taylor M.D. 02/24/2019 Z52.4 Kidney donor Malathi Taylor M.D. 02/24/2019 Z79.899 [facility] drug [facility] Malathi Taylor M.D. 02/24/2019 R60.0 Localized edema Malathi Taylor M.D. 02/03/2019 E78.2 Mixed hyperlipidemia Malathi Taylor M.D. 02/03/2019 L20.9 Atopic dermatitis, unspecified Malathi Taylor M.D. 02/03/2019 J30.9 Allergic rhinitis, unspecified Malathi Taylor M.D. 02/03/2019 K21.9 Gastro-esophageal reflux disease without Malathi Taylor M.D. esophagitis 02/03/2019 K30 Functional dyspepsia Malathi Taylor M.D. 02/03/2019 K44.9 Diaphragmatic hernia without obstruction or Malathi Taylor M.D. gangrene 02/03/2019 K59.00 Constipation, unspecified Malathi Taylor M.D. 02/03/2019 E66.09 Other obesity due to excess calories Malathi Taylor M.D. 02/03/2019 E55.9 Vitamin D deficiency, unspecified Malathi Taylor M.D. 02/03/2019 M54.6 Pain in thoracic spine Malathi Taylor M.D. 02/03/2019 M54.5 Low back pain Malathi Taylor M.D. 02/03/2019 M54.17 Radiculopathy, lumbosacral region Malathi Taylor M.D. 02/03/2019 G43.009 Migraine without aura, not intractable, Malathi Taylor M.D. without status migrainosus 02/03/2019 G47.00 Insomnia, unspecified Malathi Taylor M.D. 02/03/2019 F41.9 Anxiety disorder, unspecified Malathi Taylor M.D. 02/03/2019 R53.81 Other malaise Malathi Taylor M.D. 02/03/2019 Z52.4 Kidney donor Malathi Taylor M.D. 02/03/2019 Z79.899 Other [facility] (current) drug therapy Malathi Taylor M.D. 02/03/2019 R60.0 Localized edema Malathi Taylor M.D. 01/16/2019 E78.2 Mixed hyperlipidemia Sheldon Moss [place] 01/16/2019 L20.9 Atopic dermatitis, unspecified Sheldon Moss [place] 01/16/2019 J30.9 Allergic rhinitis, unspecified Sheldon Moss [place] 01/16/2019 K21.9 Gastro-esophageal reflux disease without Sheldon Moss [place] esophagitis 01/16/2019 K30 Functional dyspepsia Sheldon Moss [place] 01/16/2019 K44.9 Diaphragmatic hernia without obstruction or Sheldon Moss N.[place]irst[place] gangrene 01/16/2019 K59.00 Constipation, unspecified Sheldon Moss N.P. 01/16/2019 E66.09 Other obesity due to excess calories Sheldon Moss [place] 01/16/2019 E55.9 Vitamin D deficiency, unspecified Sheldon Moss [place] 01/16/2019 M54.6 Pain in thoracic spine Sheldon Moss N.P. 01/16/2019 M54.5 Low back pain Sheldon Moss N.P. 01/16/2019 M54.17 Radiculopathy, lumbosacral region Sheldon Moss N.P. 01/16/2019 G43.009 Migraine without aura, not intractable, Sheldon Moss N.P. without status migra 01/16/2019 G47.00 Insomnia, unspecified Sheldon Moss N.P. 01/16/2019 F41.9 Anxiety disorder, unspecified Sheldon Moss N.P. 01/16/2019 R53.81 Other malaise Sheldon Moss N.P. 01/16/2019 Z52.4 Kidney donor Sheldon Moss N.P. 01/16/2019 Z79.899 [facility] drug [facility] Sheldon Moss N.P. 01/16/2019 R60.0 Localized edema Sheldon Moss N.P. 01/01/2019 E78.2 Mixed hyperlipidemia Malathi Taylor M.D. 01/01/2019 L20.9 Atopic dermatitis, unspecified Malathi Taylor M.D. 01/01/2019 J30.9 Allergic rhinitis, unspecified Malathi Taylor M.D. 01/01/2019 K21.9 Gastro-esophageal reflux disease without Malathi Taylor M.D. esophagitis 01/01/2019 K30 Functional dyspepsia Malathi Taylor M.D. 01/01/2019 K44.9 Diaphragmatic hernia without obstruction or Malathi Taylor M.D. gangrene 01/01/2019 K59.00 Constipation, unspecified Malathi Taylor M.D. 01/01/2019 E66.09 Other obesity due to excess calories Malathi Taylor M.D. 01/01/2019 E55.9 Vitamin D deficiency, unspecified Malathi Taylor M.D. 01/01/2019 M54.6 Pain in thoracic spine Malathi Taylor M.D. 01/01/2019 M54.5 Low back pain Malathi Taylor M.D. 01/01/2019 M54.17 Radiculopathy, lumbosacral region Malathi Taylor M.D. 01/01/2019 G43.009 Migraine without aura, not intractable, Malathi Taylor M.D. without status migra 01/01/2019 G47.00 Insomnia, unspecified Malathi Taylor M.D. 01/01/2019 F41.9 Anxiety disorder, unspecified Malathi Taylor M.D. 01/01/2019 R53.81 Other malaise Malathi Taylor M.D. 01/01/2019 Z52.4 Kidney donor Malathi Taylor M.D. 01/01/2019 Z79.899 Other o[facility]erman (current) drug therapy Malathi Taylor M.D. 01/01/2019 R60.0 Localized edema Malathi Taylor M.D. 12/01/2018 G43.009 Migraine without aura, not intractable, Sheldon Moss, [place] without status migra 12/01/2018 K21.9 Gastro-esophageal reflux disease without Sheldon Moss N.[place]irsty esophagitis 12/01/2018 K30 Functional dyspepsia Sheldon Moss N.P. 12/01/2018 K44.9 Diaphragmatic hernia without obstruction or Sheldon Moss N.Kirsty gangrene 12/01/2018 L20.9 Atopic dermatitis, unspecified Sheldon Moss N.P. 12/01/2018 J30.9 Allergic rhinitis, unspecified Sheldon Moss N.P. 12/01/2018 G47.00 Insomnia, unspecified Sheldon Moss N.P. 12/01/2018 F41.9 Anxiety disorder, unspecified Sheldon Moss N.P. 12/01/2018 R53.81 Other malaise Sheldon Moss N.P. 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 12/01/2018 M54.6 Pain in thoracic spine Sheldon Moss N.P. 12/01/2018 M54.17 Radiculopathy, lumbosacral region Sheldon Moss N.P. 12/01/2018 M54.5 Low back pain Sheldon Moss N.P. 12/01/2018 E55.9 Vitamin D deficiency, unspecified Sheldon Moss N.P. 12/01/2018 E78.2 Mixed hyperlipidemia Sheldon Moss N.P. 12/01/2018 R60.0 Localized edema Sheldon Moss N.P. 10/29/2018 G43.009 Migraine without aura, not intractable, Sheldon Moss N.PNatasha without status migra 10/29/2018 K21.9 Gastro-esophageal reflux disease without Sheldon Moss N.PNatasha esophagitis 10/29/2018 K30 Functional dyspepsia Sheldon Moss N.PNatasha 10/29/2018 K44.9 Diaphragmatic hernia without obstruction or Sheldon Moss N.PNatasha gangrene 10/29/2018 L20.9 Atopic dermatitis, unspecified Sheldon Moss N.P. 10/29/2018 J30.9 Allergic rhinitis, unspecified Sheldon Moss N.P. 10/29/2018 G47.00 Insomnia, unspecified Sheldon Moss N.P. 10/29/2018 F41.9 Anxiety disorder, unspecified Sheldon Moss N.P. 10/29/2018 R53.81 Other malaise Sheldon Moss N.P. 10/29/2018 Z52.4 Kidney donor Sheldon Moss N.P. 10/29/2018 K59.00 Constipation, unspecified Sheldon Moss N.P. 10/29/2018 E66.09 Other obesity due to excess calories Sheldon Moss N.PNatasha 10/29/2018 Z79.899 [place] [facility] Sheldon Moss N.P. 10/29/2018 M54.6 Pain in thoracic spine Sheldon Moss N.P. 10/29/2018 M54.17 Radiculopathy, lumbosacral region Sheldon Moss N.P. 10/29/2018 M54.5 Low back pain Sheldon Moss N.PNatasha 10/29/2018 E55.9 Vitamin D deficiency, unspecified Sheldon Moss, N.P. 10/29/2018 E78.2 Mixed hyperlipidemia Sheldon Moss, N.P. 10/29/2018 R60.0 Localized edema Sheldon Moss, N.P. 10/03/2018 G43.009 Migraine without aura, not intractable, Sheldon Moss, N.P. without status migra 10/03/2018 K21.9 Gastro-esophageal reflux disease without Sheldon Moss N.PNatasha esophagitis 10/03/2018 K30 Functional dyspepsia Sheldon Moss, N.P. 10/03/2018 K44.9 Diaphragmatic hernia without obstruction or Sheldon Moss, N.PNatasha gangrene 10/03/2018 L20.9 Atopic dermatitis, unspecified Sheldon Moss, N.P. 10/03/2018 J30.9 Allergic rhinitis, unspecified Sheldon Moss, N.P. 10/03/2018 G47.00 Insomnia, unspecified Sheldon Moss N.P. 10/03/2018 F41.9 Anxiety disorder, unspecified Sheldon Moss, N.P. 10/03/2018 R53.81 Other malaise Sheldon Moss N.P. 10/03/2018 Z52.4 Kidney donor Sheldon Moss N.P. 10/03/2018 K59.00 Constipation, unspecified Sheldon Moss, N.P. 10/03/2018 E66.09 Other obesity due to excess calories Sheldon Moss N.P. 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 10/03/2018 M54.6 Pain in thoracic spine Sheldon Moss N.P. 10/03/2018 M54.17 Radiculopathy, lumbosacral region Sheldon Moss N.P. 10/03/2018 M54.5 Low back pain Sheldon Moss N.P. 10/03/2018 E55.9 Vitamin D deficiency, unspecified Sheldon Moss N.P. 10/03/2018 E78.2 Mixed hyperlipidemia Sheldon Moss, N.P. 10/03/2018 R60.0 Localized edema Sheldon Moss N.P. 09/19/2018 G43.009 Migraine without aura, not intractable, Sheldon Moss, N.P. without status migra 09/19/2018 K21.9 Gastro-esophageal reflux disease without Sheldon Moss N.PNatasha esophagitis 09/19/2018 K30 Functional dyspepsia Sheldon Moss N.P. 09/19/2018 K44.9 Diaphragmatic hernia without obstruction or Sheldon Moss N.PNatasha gangrene 09/19/2018 L20.9 Atopic dermatitis, unspecified Sheldon Moss N.P. 09/19/2018 J30.9 Allergic rhinitis, unspecified Sheldon Moss N.P. 09/19/2018 G47.00 Insomnia, unspecified Sheldon Moss N.P. 09/19/2018 F41.9 Anxiety disorder, unspecified Sheldon Moss N.P. 09/19/2018 R53.81 Other malaise Sheldon Moss N.P. 09/19/2018 Z52.4 Kidney donor Sheldon Moss N.P. 09/19/2018 K59.00 Constipation, unspecified Sheldon Moss N.P. 09/19/2018 E66.09 Other obesity due to excess calories Sheldon Moss N.P. 09/19/2018 Z79.899 Other o[facility]erman (current) drug therapy Sheldon Moss N.P. 09/19/2018 M54.6 Pain in thoracic spine Sheldon Moss N.P. 09/19/2018 M54.17 Radiculopathy, lumbosacral region Sheldon Moss N.P. 09/19/2018 M54.5 Low back pain Sheldon Moss N.P. 09/19/2018 E55.9 Vitamin D deficiency, unspecified Sheldon Moss N.P. 09/19/2018 E78.2 Mixed hyperlipidemia Sheldon Moss N.P. 09/19/2018 R60.0 Localized edema Sheldon Moss N.P. 09/10/2018 G43.009 Migraine without aura, not intractable, Sheldon Moss N.P. without status migra 09/10/2018 K21.9 Gastro-esophageal reflux disease without Sheldon Moss N.PNatasha esophagitis 09/10/2018 K30 Functional dyspepsia Sheldon Moss N.P. 09/10/2018 K44.9 Diaphragmatic hernia without obstruction or Sheldon Moss N.PNatasha gangrene 09/10/2018 L20.9 Atopic dermatitis, unspecified Sheldon Moss N.P. 09/10/2018 J30.9 Allergic rhinitis, unspecified Sheldon Moss N.P. 09/10/2018 G47.00 Insomnia, unspecified Sheldon Moss, N.P. 09/10/2018 F41.9 Anxiety disorder, unspecified Sheldon Moss, N.P. 09/10/2018 R53.81 Other malaise Sheldon Moss, N.P. 09/10/2018 Z52.4 Kidney donor Sheldon Moss N.P. 09/10/2018 K59.00 Constipation, unspecified Sheldon Moss, N.P. 09/10/2018 E66.09 Other obesity due to excess calories Sheldon Moss N.P. 09/10/2018 Z79.899 [place] [facility] [place] Sheldon Moss N.P. 09/10/2018 M54.6 Pain in thoracic spine Sheldon Moss N.P. 09/10/2018 M54.17 Radiculopathy, lumbosacral region Sheldon Moss N.P. 09/10/2018 M54.5 Low back pain Sheldon Moss N.P. 09/10/2018 E55.9 Vitamin D deficiency, unspecified Sheldon Moss N.P. 09/10/2018 E78.2 Mixed hyperlipidemia Sheldon Moss N.P. 09/05/2018 G43.009 Migraine without aura, not intractable, Sheldon Moss N.PNatasha without status migra 09/05/2018 K21.9 Gastro-esophageal reflux disease without Sheldon Moss N.PNatasha esophagitis 09/05/2018 K30 Functional dyspepsia Sheldon Moss N.P. 09/05/2018 K44.9 Diaphragmatic hernia without obstruction or Sheldon Moss N.PNatasha gangrene 09/05/2018 L20.9 Atopic dermatitis, unspecified Sheldon Moss, N.P. 09/05/2018 J30.9 Allergic rhinitis, unspecified Sheldon Moss N.P. 09/05/2018 G47.00 Insomnia, unspecified Sheldon Moss N.P. 09/05/2018 F41.9 Anxiety disorder, unspecified Sheldon Moss N.P. 09/05/2018 R53.81 Other malaise Sheldon Moss N.P. 09/05/2018 Z52.4 Kidney donor Sheldon Moss N.P. 09/05/2018 K59.00 Constipation, unspecified Sheldon Moss N.P. 09/05/2018 E66.09 Other obesity due to excess calories Sheldon Moss N.P. 09/05/2018 Z79.899 [place] [facility] Sheldon Moss N.PNatasha 09/05/2018 E55.9 Vitamin D deficiency, unspecified Sheldon Moss N.P. 09/05/2018 M54.6 Pain in thoracic spine Sheldon Moss N.P. 09/05/2018 M54.17 Radiculopathy, lumbosacral region Sheldon Moss N.P. 09/05/2018 M54.5 Low back pain Sheldon Moss N.P. 09/04/2018 G43.009 Migraine without aura, not intractable, Malathi Taylor M.D. without status migra 09/04/2018 K21.9 Gastro-esophageal reflux disease without Malathi Taylor M.D. esophagitis 09/04/2018 K30 Functional dyspepsia Malathi Taylor M.D. 09/04/2018 K44.9 Diaphragmatic hernia without obstruction or Malathi Taylor M.D. gangrene 09/04/2018 L20.9 Atopic dermatitis, unspecified Malathi Taylor M.D. 09/04/2018 J30.9 Allergic rhinitis, unspecified Malathi Taylor M.D. 09/04/2018 G47.00 Insomnia, unspecified Malathi Taylor M.D. 09/04/2018 F41.9 Anxiety disorder, unspecified Malathi Taylor M.D. 09/04/2018 R53.81 Other malaise Malathi Taylor M.D. 09/04/2018 Z52.4 Kidney donor Malathi Taylor M.D. 09/04/2018 K59.00 Constipation, unspecified Malathi Taylor M.D. 09/04/2018 E66.09 Other obesity due to excess calories Malathi Taylor M.D. 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 09/04/2018 E55.9 Vitamin D deficiency, unspecified Malathi Taylor M.D. Plan of Treatment Future Appointment(s):03/31/2019 8:45 am - Malathi Taylor M.D. at [facility]02/24/2019 - Malathi Taylor M.D.E78.2 Mixed hyperlipidemiaComments:DIET REVIEWED CONTINUE DIETWT LOSSF/U LAB FBWL20.9 Atopic dermatitis, unspecifiedComments:SKIN CARE INSTRUCTIONS LOTION OR BABY OIL 2-3 APPLICATION PER DAYUSE MOISTURIZING SOAPAVOID PROLONGED WATER EXPOSUREAVOID USING HOT WATER IN KJJBICG93.9 Allergic rhinitis, unspecifiedComments:INCREASE PO FLUID USE ANTIHISTAMINE PRN SECOND HAND SMOKING [id number] Gastro-esophageal reflux disease without esophagitisComments:AVOID CAFFEINE, ETOH AND SPICY FOODSTUMS OR MYLANTA PRN CALL WITH PROBLEMS OR [id number] Functional dyspepsiaComments: AVOID CAFFEINE, ETOH AND SPICY FOODSTUMS OR MYLANTA PRN CALL WITH PROBLEMS OR [id number] Diaphragmatic hernia without obstruction or gangreneComments: AVOID CAFFEINE, ETOH AND SPICY FOODSTUMS OR MYLANTA PRN CALL WITH PROBLEMS OR QMSUWKPUA70.00 Constipation, unspecifiedComments:MOM OR MIRALAX PRNHIGH FIBER DIETINCREASE PO TPFHDV26.09 Other obesity due to excess caloriesComments:WT LOSS COUNCELLINGEXERCISEDIET COUNCILLING DUR OKGXIKFI11.9 Vitamin D deficiency , unspecifiedComments:INCREASE EXPOSURE TO SUNREVIEW OF DIETM54.6 Pain in thoracic ayyxbD72.5 Low back painM54.17 Radiculopathy, lumbosacral tpwsubJ17.009 Migraine without aura, not intractable, without status migrainosusComments:TYLENOL OR MOTRIN PRNRELAXATION/AVOID [id number] Insomnia, unspecifiedComments:COUNCELLING AND REASSURANCE RELAXATION TECHNIQUES DISCUSSED COUNSELED RE: STRESSORS IN LIFE TYLENOLPM OR MOTRIN PM PRN DUR OTANESOK80.9 Anxiety disorder, unspecifiedComments:COUNCELLING AND REASSURANCE RELAXATION TECHNIQUES DISCUSSEDCOUNSELED RE: STRESSORS IN LIFE AVOID ALLENERGY/ HIGH CAFFEINE MNDQRMU33.81 Other malaiseComments:INCRFEASE PO FLUIDCOUNCELLING AND REASSURANCE REST DUR CCPHLVQK80.4 Kidney donorComments:OBSERVEF/U WITH NEPHROLOGY PRNZ79.899 Other o[facility]erman (current) drug therapyComments:REVIEWED MEDICATIONS AND DIRECTIONS WITH PATIENT DUR HXLMQJKS78.0 Localized edemaComments :OBSERVE FOR NOW Functional Status Functional Condition Comment Date Status Soft contacts Active Glasses Active Mental Status Description No Information Available Referrals Refer to Reason for Referral Status Appt Date [facility] BARIATRIC SURGERY CONSULT Closed 10/22/2017 [address] [facility] [address] [facility] [id number] [phone]
--- OUTSIDE RECORDS SUMMARY | 2019-02-25 05:52 | XMS REPORT | Continuity of Care Document ---
:1980 External Reference #:[id number] Author Name Malathi Taylor M.D. 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 Tablets as needed Medical Compression wear compression 2units R60.0 Malathi Taylor 09/19/2018 Stockings/Female/15- stockings for 12hr M., M.D. 20MMHG/Knee/MD/Short per day and remove for 12 hours. Misc Vitamin D take 1 capsule by 1caps E55.9 Malathi Taylor 09/10/2018 (Ergocalciferol) mouth Once A Month M., M.D. On The First [id number] Capsules Fenofibrate 1 by mouth every 90tabs E78.2 Malathi Taylor 09/10/2018 145mg day M., M.D. Tablets Citalopram Take One Tablet By 90tabs F41.9 Malathi Taylor 03/06/2018 Hydrobromide Mouth Once Daily M., M.D. 40mg Tablets Anucort-HC [address] of rectum 24units Malathi Taylor 06/21/2017 25mg twice a day as M. M.D. Suppository needed History Medications Xanax 1 tabs by mouth 150tabs F41.9 [facility] 10/29/2018 - 0.25mg Tablets three times a M., M.D. 10/28/2018 day and 2 tabs po qhs Phendimetrazine 1 tab by mouth 90tabs E66.09 [facility] 09/19/2018 - Tartrate three times a M., M.D. 02/03/2019 35mg Tablets day as needed Xanax 1 tab by mouth 90tabs F41.9 [facility] 09/05/2018 - 0.25mg Tablets three times a M., M.D. 10/29/2018 day as needed for anxiety Cyclobenzaprine HCL 1 tab by mouth 90tabs M54.5 [facility] 08/20/2018 - 10mg three times a M., M.D. 11/30/2018 Tablets day as needed for muscle spasms M62.830 Buspirone HCL 1 tab by mouth 60tabs F41.9 [facility], [facility] 08/05/2018 - 15mg twice a day M.D. 09/04/2018 Tablets Immunizations CPT Code Status Date Vaccine Reaction Lot # U-Flu Given 02/01/2018 Influenza,Unspecified [id number] Given 02/04/2015 Flu Vaccine [id number] Given 02/23/2014 Flu Vaccine Pt received Flu Vaccine at her Pharmacy. Vital Signs Date Vital Result Comment 02/03/2019 8:38am BP Systolic 115 mmHg BP Diastolic 65 mmHg Height 63.5 inches 5'3.50" Weight 224.00 lb BMI (Body Mass Index) 39.1 kg/m2 Heart Rate 104 /min Respiratory Rate 16 /min 01/01/2019 10:49am BP Systolic 120 mmHg BP Diastolic 74 mmHg Height 63.5 inches 5'3.50" Weight 224.00 lb BMI (Body Mass Index) 39.1 kg/m2 Results Test Date Facility Test Result H/L Range Note Citalopram/E 12/01/2018 [facility] Citalopram/E Positive >20 Con Normal 0.2 1 scitalopram scitalopram <SEE NOTE> ng/mL PDF SEE IMAGE Laboratory test 12/01/2018 [facility] Ethyl Glucuronide Negative ng/mL Normal 10 2 finding Gabapentin Negative ng/mL Normal 0.5 3 Tramadol Negative ng/mL Normal 0.5 4 Cyclobenzaprine Negative Inconsi <SEE NOTE> ng/mL Abnormal 0.[address] SCR 12/01/2018 [facility] Amphetamine NEGATIVE Normal 50 W/Out THC Barbiturate NEGATIVE Normal 20 Benzodiazepine POSITIVE Abnormal 1.5 Cocaine NEGATIVE Normal 5 Methadone NEGATIVE Normal 5 Methamphetamine POSITIVE Abnormal 40 Opiate NEGATIVE Normal 10 Phencyclidine NEGATIVE Normal 1 6 Antidepressant PNL 12/01/2018 [facility] Amitriptyline Negative Normal 0.5 (Oral-LC/MS/MS ng/mL Clomipramine Negative ng/mL Normal 0.5 Desipramine Negative ng/mL Normal 0.5 Doxepin Negative ng/mL Normal 0.5 Fluoxetine Negative ng/mL Normal 0.5 Imipramine Negative ng/mL Normal 0.5 Nortriptyline Negative ng/mL Normal 0.5 Sertraline Negative ng/mL Normal 0.5 Trimipramine Negative ng/mL Normal 0.5 7 Methadone Panel 12/01/2018 [facility] Methadone Negative ng/mL Normal 1 (Oral-LC/MS/MS) Eddp Negative ng/mL Normal 0.2 8 Opiate Panel 12/01/2018 [facility] 6-Qamar (Heroin Negative Normal 0.5 (Oral-LC/MS/MS) Metabolite) ng/mL Codeine Negative ng/mL Normal 0.5 Hydrocodone Negative ng/mL Normal 0.5 Hydromorphone Negative ng/mL Normal 0.5 Morphine Negative ng/mL Normal 1 Oxycodone Negative ng/mL Normal 0.5 Oxymorphone Negative ng/mL Normal 0.5 9 Cocaine Panel 12/01/2018 [facility] Cocaine Negative ng/mL Normal 0.5 (Oral-LC/MS/MS Benzoylecgonine Negative ng/mL Normal 1 10 Buprenorphine PNL 12/01/2018 [facility] Buprenorphine Negative Normal 0.05 (Oral -LC/MS/MS) ng/mL Norbuprenorphine Negative ng/mL Normal 0.5 Naloxone Negative ng/mL Normal 0.1 11 Barbiturate PNL 12/01/2018 [facility] Butalbital Negative ng/mL Normal 10 (Oral-L C/MS/MS) Pentobarbital Negative ng/mL Normal 10 Phenobarbital Negative ng/mL Normal 10 Secobarbital Negative ng/mL Normal 10 12 Benzodiazepine PNL 12/01/2018 [facility] 7-Aminoclonazepam Negative Normal 0.2 (Oral-LC/MS/MS) [...] ng/mL Normal 0.2 14 Amphetamine Panel 12/01/2018 [facility] Amphetamine Negative ng/ mL Normal 0.5 (Oral -LC/MS/MS) Methamphetamine Negative ng/mL Normal 0.5 Mda Negative ng/mL Normal 1 Mdea Negative ng/mL Normal 0.5 Mdma Negative ng/mL Normal 0.5 15 Oral [place] FML 12/01/2018 [facility] Comment: See Components Normal 16 Practice Herpes Simplex 09/28/2018 [facility] Herpes Source mouth/lips PCR HSV 1 PCR Positive Abnormal Negative HSV 2 PCR Negative Negative 17 Laboratory test 09/05/2018 [facility] 25 Hydroxy Vit 17 ng/mL Low (31- 100) 18 finding 113 Xiaomi RAJ D @ (113)- - TSH,Ultrasensitive @ 1.300 mIU/L (0.360-4.170) Free Thyroxine @ 0.86 ng/dL (0.76-1.46) Hemoglobin A1c 09/05/2018 [facility] Hemoglobin A1c @ 5.1 % (4.0-6.0) 19 113 Xiaomi RAJ (672)- - Est Average Glucose 100 mg/dL CBC With Diff 09/05/2018 [facility] WBC 6.0 10*3/uL (4.1-11.0) 113 INNOVATION RAJ (632)- - RBC 4.58 10*6/uL (4.00-5.40) HGB 12.9 g/dL (12.0-16.0) HCT 38.7 % (36.0-47.0) MCV 84.5 fL (80.0-95.0) MCH 28.1 pg (27.0-32.0) MCHC 33.3 g/dL (32.0-36.0) RDW 13.8 % (10.5-14.5) PLT 222 10*3/uL (150-450) MPV 8.3 fL (7.1-10.7) Neut % 68.1 % (35.0-75.0) Lymph % 25.2 % (16.0-52.0) [place] % 4.7 % (0.0-8.0) Eos % 1.5 % (0.0-5.0) Baso % 0.5 % (0.0-4.0) Neut # 4.1 10*3/uL (1.8-7.7) Lymph # 1.5 10*3/uL (1.2-4.8) [place] # 0.3 10*3/uL (0.0-0.8) Eos # 0.1 10*3/uL (0.0-0.5) Baso # 0.0 10*3/uL (0.0-0.2) CMP 09/05/2018 [facility] Sodium 139 mmol/L (136-145) 113 INNOVATION RAJ [...] <SEE NOTE> 20 Laboratory test 09/05/2018 [facility] Uric Acid 5.1 mg/dL (2.6-6.0) finding Brant ANTHONY (607)- - Rheumatoid Factor @ <15 IU/mL (0-15) C Reactive Protein @ 1.1 mg/dL High (0.0-0.5) Esr 23 mm/h High (0-20) Lipid 09/05/2018 [facility] Cholesterol @ 189 mg/dL (0-200) 113 NAOMI [...] This test has been modified from the project landscape architect's instructions. Its performance characteristics were determined by [facility] in a manner consistent with CLIA requirements. This test has not been cleared or approved by the U.S. Food and Drug Administration. Test Performed by: [address] [id number] 18 A REVIEW OF THE LITERATURE SUGGESTS THE FOLLOWING RANGES FOR THE CLASSIFICATION OF 25-OH VITAMIN D STATUS: VITAMIN D STATUS 25-OH VITAMIN D DEFICIENCY <20 NG/ML INSUFFICIENCY 20-30 NG/ML SUFFICIENCY 31 - 100 NG/ML TOXICITY > 100 NG/ML A PEDIATRIC REFERENCE RANGE HAS NOT BEEN ESTABLISHED USING THIS METHOD. 19 Performed using Siemens [employer] immunoassay. Care must be taken when interpreting [...] Date Location Provider Dx Diagnosis Office Visit 01/01/2019 [facility] Malathi Taylor, E78.2 Mixed hyperlipidemia 10:45a M.D. L20.9 Atopic dermatitis, unspecified J30.9 Allergic [...] Other malaise Z52.4 Kidney donor Z79.899 Other keno terminal operator (current) drug therapy R60.0 Localized edema Office Visit 12/01/2018 8:45a [place] [facility] Sheldon Moss, G43.009 Migraine w/o aura, N.P. 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 K59.00 Constipation, unspecified E66.09 Other obesity due to excess calories Z79.899 Other shelter (current) drug therapy M54.6 Pain in thoracic spine M54.17 Radiculopathy, lumbosacral region M54.5 Low back pain E55.9 Vitamin D deficiency, unspecified E78.2 Mixed hyperlipidemia R60.0 Localized edema Office Visit 10/29/2018 9:00a [place] Sheldon Moss, G43.009 Migraine w/o aura, N.P. 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 K59.00 Constipation, unspecified E66.09 Other obesity due to excess calories Z79.899 Other shelter (current) drug therapy M54.6 Pain in thoracic spine M54.17 Radiculopathy, lumbosacral region M54.5 Low back pain E55.9 Vitamin D deficiency, unspecified E78.2 Mixed hyperlipidemia R60.0 Localized edema Office Visit 09/10/2018 9:00a [facility] Sheldon Moss, G43.009 Migraine w/o aura, N.P. 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 K59.00 Constipation, unspecified E66.09 Other obesity due to excess calories Z79.899 Other shelter (current) drug therapy M54.6 Pain in thoracic spine M54.17 Radiculopathy, lumbosacral region M54.5 Low back pain E55.9 Vitamin D deficiency, unspecified E78.2 Mixed hyperlipidemia Office Visit 09/05/2018 8:45a [facility] Sheldon Moss, G43.009 Migraine w/o aura, N.P. 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 K59.00 Constipation, unspecified E66.09 Other obesity due to excess calories Z79.899 Other shelter (current) drug therapy E55.9 Vitamin D deficiency, unspecified Assessments Date Code Description Provider 02/03/2019 E78.2 Mixed hyperlipidemia Malathi Taylor M.D. [...] Taylor M.D. 02/03/2019 M54.5 Low back pain Maltahi Taylor M.D. 02/03/2019 M54.17 Radiculopathy, lumbosacral region Malathi Taylor M.D. 02/03/2019 G43.009 Migraine without aura, not intractable, Malathi Taylor M.D. without status migrainosus 02/03/2019 G47.00 Insomnia, unspecified Malathi Taylor M.D. 02/03/2019 F41.9 Anxiety disorder, unspecified Malathi Taylor M.D. 02/03/2019 R53.81 Other malaise Malathi Taylor M.D. 02/03/2019 Z52.4 Kidney donor Malathi Taylor M.D. 02/03/2019 Z79.899 Other shelter (current) drug therapy Malathi Taylor M.D. 02/03/2019 R60.0 Localized edema Malathi Taylor M.D. 01/16/2019 E78.2 Mixed hyperlipidemia Sheldon Moss, N.P. 01/16/2019 L20.9 Atopic dermatitis, unspecified Sheldon Moss, N.P. 01/16/2019 J30.9 Allergic rhinitis, unspecified Sheldon Moss N.P. 01/16/2019 K21.9 Gastro-esophageal reflux disease without Sheldon Moss N.[place] esophagitis 01/16/2019 K30 Functional dyspepsia Sheldon Moss N.P. 01/16/2019 K44.9 Diaphragmatic hernia without obstruction or Sheldon Moss N.[place] gangrene 01/16/2019 K59.00 Constipation, unspecified Sheldon Moss, N.P. 01/16/2019 E66.09 Other obesity due to excess calories Sheldon Moss, N.P. 01/16/2019 E55.9 Vitamin D deficiency, unspecified Sheldon Moss, N.P. 01/16/2019 M54.6 Pain in thoracic spine Sheldon Moss N.P. 01/16/2019 M54.5 Low back pain Sheldon Moss N.P. 01/16/2019 M54.17 Radiculopathy, lumbosacral region Sheldon Moss N.P. 01/16/2019 G43.009 Migraine without aura, not intractable, Sheldon Moss, N.P. without status migra 01/16/2019 G47.00 Insomnia, unspecified Sheldon Moss, N.P. 01/16/2019 F41.9 Anxiety disorder, unspecified Sheldon Moss N.P. 01/16/2019 R53.81 Other malaise Sheldon Moss N.P. 01/16/2019 Z52.4 Kidney donor Sheldon Moss N.P. 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 01/16/2019 [...] donor Malathi Taylor M.D. 01/01/2019 Z79.899 Other shelter (current) drug therapy Malathi Taylor M.D. 01/01/2019 R60.0 Localized edema Malathi Taylor M.D. 12/01/2018 G43.009 Migraine without aura, not intractable, Sheldon Moss, N.P. without status migra 12/01/2018 K21.9 Gastro-esophageal reflux disease without Sheldon Moss N.P. esophagitis 12/01/2018 K30 Functional dyspepsia Sheldon Moss N.P. 12/01/2018 K44.9 Diaphragmatic hernia without obstruction or Sheldon Moss, N.P. gangrene 12/01/2018 L20.9 Atopic dermatitis, unspecified Sheldon Moss N.P. 12/01/2018 J30.9 Allergic rhinitis, unspecified Sheldon Moss N.P. 12/01/2018 G47.00 Insomnia, unspecified Sheldon Moss N.P. 12/01/2018 F41.9 Anxiety disorder, unspecified Sheldon Moss N.P. 12/01/2018 R53.81 Other malaise Sheldon Moss N.P. 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 12/01/2018 K59.00 Constipation, unspecified Sheldon Moss N.P. 12/01/2018 E66.09 Other obesity due to excess calories Sheldon Moss N.P. 12/01/2018 Z79.899 Other shelter (current) drug therapy Sheldon Moss N.P. 12/01/2018 [...] intractable, Sheldon Moss, N.P. without status migra 10/29/2018 K21.9 Gastro-esophageal reflux disease without Sheldon Moss N.P. esophagitis 10/29/2018 K30 Functional dyspepsia Sheldon Moss N.P. 10/29/2018 K44.9 Diaphragmatic hernia without obstruction or Sheldon Moss N.PN[place] gangrene 10/29/2018 L20.9 Atopic dermatitis, unspecified Sheldon Moss N.P. 10/29/2018 J30.9 Allergic rhinitis, unspecified Sheldon Moss N.P. 10/29/2018 G47.00 Insomnia, unspecified Sheldon Moss N.P. 10/29/2018 F41.9 Anxiety disorder, unspecified Sheldon Moss, N.P. 10/29/2018 R53.81 Other malaise Sheldon Moss N.P. 10/29/2018 Z52.4 Kidney donor Sheldon Moss N.P. 10/29/2018 K59.00 Constipation, unspecified Sheldon Moss N.P. 10/29/2018 E66.09 Other obesity due to excess calories Sheldon Moss N.P. 10/29/2018 Z79.899 Other shelter (current) drug therapy Sheldon Moss N.P. 10/29/2018 M54.6 Pain in thoracic spine Sheldon Moss N.P. 10/29/2018 M54.17 Radiculopathy, lumbosacral region Sheldon Moss N.P. 10/29/2018 M54.5 Low back pain Sheldon Moss N.P. 10/29/2018 E55.9 Vitamin D deficiency, unspecified Sheldon Moss N.P. 10/29/2018 E78.2 Mixed hyperlipidemia Sheldon Moss N.P. 10/29/2018 R60.0 Localized edema Sheldon Moss N.PN[place] 10/03/2018 G43.009 Migraine without aura, not intractable, Sheldon Moss, N.P. without status migra 10/03/2018 K21.9 Gastro-esophageal reflux disease without Sheldon Moss N.PN[place] esophagitis 10/03/2018 K30 Functional dyspepsia Sheldon Moss N.PN[place] 10/03/2018 K44.9 Diaphragmatic hernia without obstruction or Sheldon Moss N.P. gangrene 10/03/2018 L20.9 Atopic dermatitis, unspecified Sheldon Moss N.P. 10/03/2018 J30.9 Allergic rhinitis, unspecified Sheldon Moss N.P. 10/03/2018 G47.00 Insomnia, unspecified Sheldon Moss N.P. 10/03/2018 F41.9 Anxiety disorder, unspecified Sheldon Moss, N.P. 10/03/2018 R53.81 Other malaise Sheldon Moss, N.P. 10/03/2018 Z52.4 Kidney donor Sheldon Moss, N.P. 10/03/2018 K59.00 Constipation, unspecified Sheldon Moss, N.P. 10/03/2018 E66.09 Other obesity due to excess calories Sheldon Moss N.P. 10/03/2018 Z79.899 Other keno terminal operator (current) drug therapy Sheldon Moss N.P. 10/03/2018 M54.6 Pain in thoracic spine Sheldon Moss N.P. 10/03/2018 M54.17 Radiculopathy, lumbosacral region Sheldon Moss N.P. 10/03/2018 M54.5 Low back pain Sheldon Moss N.P. 10/03/2018 E55.9 Vitamin D deficiency, unspecified Sheldon Moss N.P. 10/03/2018 E78.2 Mixed hyperlipidemia Sheldon Moss N.P. 10/03/2018 R60.0 Localized edema Sheldon Moss N.P. 09/19/2018 G43.009 Migraine without aura, not intractable, Sheldon Moss N.P. without status migra 09/19/2018 K21.9 Gastro-esophageal reflux disease without Sheldon Moss N.PN[place] esophagitis 09/19/2018 K30 Functional dyspepsia Sheldon Moss N.P. 09/19/2018 K44.9 Diaphragmatic hernia without obstruction or Sheldon Moss N.PN[place] gangrene 09/19/2018 L20.9 Atopic dermatitis, unspecified Sheldon Moss, N.P. 09/19/2018 J30.9 Allergic rhinitis, unspecified Sheldon oMss, N.P. 09/19/2018 G47.00 Insomnia, unspecified Sheldon Moss N.P. 09/19/2018 F41.9 Anxiety disorder, unspecified Sheldon Moss N.P. 09/19/2018 R53.81 Other malaise Sheldon Moss N.P. 09/19/2018 Z52.4 Kidney donor Sheldon Moss N.P. 09/19/2018 K59.00 Constipation, unspecified Sheldon Moss, N.P. 09/19/2018 E66.09 Other obesity due to excess calories Sheldon Moss N.P. 09/19/2018 Z79.899 Other keno terminal operator (current) drug therapy Sheldon Moss N.P. 09/19/2018 M54.6 Pain in thoracic spine Sheldon Moss N.P. 09/19/2018 M54.17 Radiculopathy, lumbosacral region Sheldon Moss N.P. 09/19/2018 M54.5 Low back pain Sheldon Moss N.P. 09/19/2018 E55.9 Vitamin D deficiency, unspecified Sheldon Moss, N.P. 09/19/2018 E78.2 Mixed hyperlipidemia Sheldon Moss N.P. 09/19/2018 R60.0 Localized edema Sheldon Moss N.P. 09/10/2018 G43.009 Migraine without aura, not intractable, Sheldon Moss N.P. without status migra 09/10/2018 K21.9 Gastro-esophageal reflux disease without Genevieve Torres.[place] esophagitis 09/10/2018 K30 Functional dyspepsia Sheldon Moss N.P. 09/10/2018 K44.9 Diaphragmatic hernia without obstruction or Sheldon Moss N.PN[place] gangrene 09/10/2018 L20.9 Atopic dermatitis, unspecified Sheldon Moss N.P. 09/10/2018 J30.9 Allergic rhinitis, unspecified Sheldon Moss N.P. 09/10/2018 G47.00 Insomnia, unspecified Sheldon Moss N.P. 09/10/2018 F41.9 Anxiety disorder, unspecified Sheldon Moss N.P. 09/10/2018 R53.81 Other malaise Sheldon Moss N.P. 09/10/2018 Z52.4 Kidney donor Sheldon Moss N.P. 09/10/2018 K59.00 Constipation, unspecified Sheldon Moss N.P. 09/10/2018 E66.09 Other obesity due to excess calories Sheldon Moss N.P. 09/10/2018 Z79.899 Other keno terminal operator (current) drug therapy Sheldon Moss N.P. 09/10/2018 [...] gangrene 09/05/2018 L20.9 Atopic dermatitis, unspecified Sheldon Moss N.P. 09/05/2018 J30.9 Allergic rhinitis, unspecified Sheldon Moss N.P. 09/05/2018 G47.00 Insomnia, unspecified Sheldon Moss N.P. 09/05/2018 F41.9 Anxiety disorder, unspecified Sheldon Moss N.P. 09/05/2018 R53.81 Other malaise Sheldon Moss N.P. 09/05/2018 Z52.4 Kidney donor Sheldon Moss N.P. 09/05/2018 K59.00 Constipation, unspecified Sheldon Moss N.P. 09/05/2018 E66.09 Other obesity due to excess calories Sheldon Moss N.P. 09/05/2018 Z79.899 Other shelter (current) drug therapy Sheldon Moss N.P. 09/05/2018 E55.9 Vitamin D deficiency, unspecified Sheldon [...] calories Malathi Taylor M.D. 09/04/2018 Z79.899 Other shelter (current) drug therapy Malathi Taylor M.D. 09/04/2018 E55.9 Vitamin D deficiency, unspecified Malathi Taylor M.D. 08/05/2018 G43.009 Migraine without aura, not intractable, Malathi Taylor M.D. without status migra 08/05/2018 K21.9 Gastro-esophageal reflux disease without BrandonMalathi crowe M.D. esophagitis 08/05/2018 K30 Functional dyspepsia Malathi Taylor M.D. 08/05/2018 K44.9 Diaphragmatic hernia without obstruction or Malathi Taylor M.D. gangrene 08/05/2018 L20.9 Atopic dermatitis, unspecified Malathi Taylor M.D. 08/05/2018 J30.9 Allergic rhinitis, unspecified Malathi Taylor M.D. 08/05/2018 G47.00 Insomnia, unspecified Malathi Taylor M.D. 08/05/2018 F41.9 Anxiety disorder, unspecified Malathi Taylor M.D. 08/05/2018 R53.81 Other malaise Malathi Taylor M.D. 08/05/2018 Z52.4 Kidney donor Malathi Taylor M.D. 08/05/2018 K59.00 Constipation, unspecified Malathi Taylor M.D. 08/05/2018 E66.09 Other obesity due to excess calories Malathi Taylor M.D. 08/05/2018 Z79.899 Other keno terminal operator (current) drug therapy Malathi Taylor M.D. 08/05/2018 E55.9 Vitamin D deficiency, unspecified Malathi Taylor M.D. Plan of Treatment 02/03/2019 - Malathi Taylor M.D.E78.2 Mixed hyperlipidemiaComments:DIET REVIEWED CONTINUE DIETWT LOSSF/U LAB FBWL20.9 Atopic dermatitis, unspecifiedComments:SKIN CARE INSTRUCTIONS LOTION OR BABY OIL 2-3 APPLICATION PER DAYUSE MOISTURIZING SOAPAVOID PROLONGED WATER EXPOSUREAVOID USING HOT WATER IN DSPSCET38.9 Allergic rhinitis, unspecifiedComments:INCREASE PO FLUID USE ANTIHISTAMINE PRN SECOND HAND SMOKING [id number] Gastro-esophageal reflux disease without esophagitisComments:AVOID CAFFEINE, ETOH AND SPICY FOODSTUMS OR MYLANTA PRN CALL WITH PROBLEMS OR [id number] Functional dyspepsiaComments: AVOID CAFFEINE, ETOH AND SPICY FOODSTUMS OR MYLANTA PRN CALL WITH PROBLEMS OR [id number] Diaphragmatic hernia without obstruction or gangreneComments: AVOID CAFFEINE, ETOH AND SPICY FOODSTUMS OR MYLANTA PRN CALL WITH PROBLEMS OR [id number] Constipation, unspecifiedComments:MOM OR MIRALAX PRNHIGH FIBER DIETINCREASE PO YCYVQC13.09 Other obesity due to excess caloriesComments:WT LOSS COUNCELLINGEXERCISEDIET COUNCILLING DUR VXDKUVAS75.9 Vitamin D deficiency , unspecifiedComments:INCREASE EXPOSURE TO SUNREVIEW OF DIETM54.6 Pain in thoracic qkmdlF97.5 Low back painM54.17 Radiculopathy, lumbosacral fkuikqW35.009 Migraine without aura, not intractable, without status migrainosusComments:TYLENOL OR MOTRIN PRNRELAXATION/AVOID QOCEDLJZKF29.00 Insomnia, unspecifiedComments:COUNCELLING AND REASSURANCE RELAXATION TECHNIQUES DISCUSSED COUNSELED RE: STRESSORS IN LIFE TYLENOLPM OR MOTRIN PM PRN DUR TGHVYFOU60.9 Anxiety disorder, unspecifiedComments:COUNCELLING AND REASSURANCE RELAXATION TECHNIQUES DISCUSSEDCOUNSELED RE: STRESSORS IN LIFE AVOID ALLENERGY/ HIGH CAFFEINE PKGCUMZ02.81 Other malaiseComments:INCRFEASE PO FLUIDCOUNCELLING AND REASSURANCE REST DUR PTLSHWRC79.4 Kidney donorComments:OBSERVEF/U WITH NEPHROLOGY PRNZ79.899 Other shelter (current) drug therapyComments:REVIEWED MEDICATIONS AND DIRECTIONS WITH PATIENT DUR SUXFPFLM74.0 Localized edema Functional Status Functional Condition Comment Date Status Soft contacts Active Glasses Active Mental Status Description No Information Available Referrals Refer to Reason for Referral Status Appt Date [facility] BARIATRIC SURGERY CONSULT Closed 10/22/2017 [address] [facility] [address] [address] [phone]
--- OUTSIDE RECORDS SUMMARY | 2019-02-25 05:52 | XMS REPORT | Continuity of Care Document ---
:1980 External Reference #:[id number] Author Name Malathi Taylor M.D. 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 as needed And One Tab QHS prn Insomnia Phendimetrazine 1 tab by mouth 90tabs E66.09 Malathi Taylor 09/19/2018 Tartrate three times a day M., M.D. 35mg Tablets as needed Medical Compression wear compression 2units R60.0 Malathi Taylor 09/19/2018 Stockings/Female/15-20 stockings for 12hr M., M.D. MMHG/Knee/MD/Short per day and remove Misc for 12 hours. Vitamin D take 1 capsule by 1caps E55.9 Malathi Taylor 09/10/2018 (Ergocalciferol) mouth Once A Month M., M.D. On The First [id number] Capsules Fenofibrate 1 by mouth every 90tabs E78.2 Malathi Taylor 09/10/2018 145mg Tablets day M., M.D. Citalopram Take One Tablet By 90tabs F41.9 Malathi Taylor 05/01/2018 Hydrobromide Mouth Once Daily M., M.D. 20mg Tablets as Needed Citalopram Take One Tablet By 90tabs F41.9 [facility] Hydrobromide Mouth Once Daily M., M.D. 40mg Tablets Anucort-HC [address] of rectum 24units [facility] 06/21/2017 25mg twice a day as M., M.D. Suppository needed History Medications Xanax 1 tabs by mouth 150tabs F41.9 [facility] 10/29/2018 - 0.25mg Tablets three times a M., M.D. 10/28/2018 day and 2 tabs po qhs Xanax 1 tab by mouth 90tabs F41.9 [facility] 09/05/2018 - 0.25mg Tablets three times a M., M.D. 10/29/2018 day as needed for anxiety Cyclobenzaprine HCL 1 tab by mouth 90tabs M54.5 [facility] 08/20/2018 - 10mg three times a M., M.D. 11/30/2018 Tablets day as needed for muscle spasms M62.830 Buspirone HCL 1 tab by mouth 60tabs F41.9 Brandon, leslye M., 08/05/2018 - 15mg twice a day M.D. 09/04/2018 Tablets Immunizations CPT Code Status Date Vaccine Reaction Lot # U-[id number] Given 02/01/2018 Influenza,Unspecified [id number] Given 02/04/2015 Flu Vaccine [id number] Given 02/23/2014 Flu Vaccine Pt received Flu Vaccine at her Pharmacy. Vital Signs Date Vital Result Comment 01/01/2019 10:49am BP Systolic 120 mmHg BP Diastolic 74 mmHg Height 63.5 inches 5'3.50" Weight 224.00 lb BMI (Body Mass Index) 39.1 kg/m2 12/01/2018 8:57am BP Systolic 118 mmHg BP Diastolic 82 mmHg Height 63.5 inches 5'3.50" Weight 230.00 lb BMI (Body Mass Index) 40.1 kg/m2 Heart Rate 96 /min Respiratory Rate 18 /min Results Test Date Facility Test Result H/L Range Note Citalopram/E 12/01/2018 [facility] Citalopram/E Positive >20 Con Normal 0.2 1 scitalopram scitalopram <SEE NOTE> ng/mL PDF SEE IMAGE Laboratory test 12/01/2018 [facility] Ethyl Glucuronide Negative ng/mL Normal 10 2 finding Gabapentin Negative ng/mL Normal 0.5 3 Tramadol Negative ng/mL Normal 0.5 4 Cyclobenzaprine Negative Inconsi <SEE NOTE> ng/mL Abnormal 0.[address] SCR 12/01/2018 [facility] Amphetamine NEGATIVE Normal 50 W/Out THC Barbiturate NEGATIVE Normal 20 Benzodiazepine POSITIVE Abnormal 1.5 Cocaine NEGATIVE Normal 5 Methadone NEGATIVE Normal 5 Methamphetamine POSITIVE Abnormal 40 Opiate NEGATIVE Normal 10 Phencyclidine NEGATIVE Normal 1 6 Antidepressant PNL 12/01/2018 [facility] Amitriptyline Negative Normal 0.5 (Oral-LC/MS/MS ng/mL Clomipramine Negative ng/mL Normal 0.5 Desipramine Negative ng/mL Normal 0.5 Doxepin Negative ng/mL Normal 0.5 Fluoxetine Negative ng/mL Normal 0.5 Imipramine Negative ng/mL Normal 0.5 Nortriptyline Negative ng/mL Normal 0.5 Sertraline Negative ng/mL Normal 0.5 Trimipramine Negative ng/mL Normal 0.5 7 Methadone Panel 12/01/2018 [facility] Methadone Negative ng/mL Normal 1 (Oral-LC/MS/MS) Eddp Negative ng/mL Normal 0.2 8 Opiate Panel 12/01/2018 [facility] 6-Qamar (Heroin Negative Normal 0.5 (Oral-LC/MS/MS) Metabolite) ng/mL Codeine Negative ng/mL Normal 0.5 Hydrocodone Negative ng/mL Normal 0.5 Hydromorphone Negative ng/mL Normal 0.5 Morphine Negative ng/mL Normal 1 Oxycodone Negative ng/mL Normal 0.5 Oxymorphone Negative ng/mL Normal 0.5 9 Cocaine Panel 12/01/2018 [facility] Cocaine Negative ng/mL Normal 0.5 (Oral-LC/MS/MS Benzoylecgonine Negative ng/mL Normal 1 10 Buprenorphine PNL 12/01/2018 [facility] Buprenorphine Negative Normal 0.05 (Oral -LC/MS/MS) ng/mL Norbuprenorphine Negative ng/mL Normal 0.5 Naloxone Negative ng/mL Normal 0.1 11 Barbiturate PNL 12/01/2018 [facility] Butalbital Negative ng/mL Normal 10 (Oral-L C/MS/MS) Pentobarbital Negative ng/mL Normal 10 Phenobarbital Negative ng/mL Normal 10 Secobarbital Negative ng/mL Normal 10 12 Benzodiazepine PNL 12/01/2018 [facility] 7-Aminoclonazepam Negative Normal 0.2 (Oral-LC/MS/MS) [...] ng/mL Normal 0.2 14 Amphetamine Panel 12/01/2018 [facility] Amphetamine Negative ng/ mL Normal 0.5 (Oral -LC/MS/MS) Methamphetamine Negative ng/mL Normal 0.5 Mda Negative ng/mL Normal 1 Mdea Negative ng/mL Normal 0.5 Mdma Negative ng/mL Normal 0.5 15 Oral [place] FML 12/01/2018 [facility] Comment: See Components Normal 16 Practice Herpes Simplex 09/28/2018 [facility] Herpes Source mouth/lips PCR HSV 1 PCR Positive Abnormal Negative HSV 2 PCR Negative Negative 17 Laboratory test 09/05/2018 [facility] [place] 25 Hydroxy Vit 17 ng/mL Low (31- 100) 18 finding 113 [employer] RAJ D @ (143)- - TSH,Ultrasensitive @ 1.300 mIU/L (0.360-4.170) Free Thyroxine @ 0.86 ng/dL (0.76-1.46) Hemoglobin A1c 09/05/2018 [facility] [place] Hemoglobin A1c @ 5.1 % (4.0-6.0) 19 113 [employer] (118)- - Est Average Glucose 100 mg/dL CBC With Diff 09/05/2018 [facility] [place] WBC 6.0 10*3/uL (4.1-11.0) 113 [employer] RAJ (150)- - RBC 4.58 10*6/uL (4.00-5.40) HGB 12.9 g/dL (12.0-16.0) HCT 38.7 % (36.0-47.0) MCV 84.5 fL (80.0-95.0) MCH 28.1 pg (27.0-32.0) MCHC 33.3 g/dL (32.0-36.0) RDW 13.8 % (10.5-14.5) PLT 222 10*3/uL (150-450) MPV 8.3 fL (7.1-10.7) Neut % 68.1 % (35.0-75.0) Lymph % 25.2 % (16.0-52.0) [place] % 4.7 % (0.0-8.0) Eos % 1.5 % (0.0-5.0) Baso % 0.5 % (0.0-4.0) Neut # 4.1 10*3/uL (1.8-7.7) Lymph # 1.5 10*3/uL (1.2-4.8) [place] # 0.3 10*3/uL (0.0-0.8) Eos # 0.1 10*3/uL (0.0-0.5) Baso # 0.0 10*3/uL (0.0-0.2) CMP 09/05/2018 [facility] [place] Sodium 139 mmol/L (136-145) 113 IN[employer] RAJ [...] <SEE NOTE> 20 Laboratory test 09/05/2018 [facility] [place] Uric Acid 5.1 mg/dL (2.6-6.0) finding 113 NAOMI ANTHONY (607)- - Rheumatoid Factor @ <15 IU/mL (0-15) C Reactive Protein @ 1.1 mg/dL High (0.0-0.5) Esr 23 mm/h High (0-20) Lipid 09/05/2018 [facility] Cholesterol @ 189 mg/dL (0-200) 113 NAOMI [...] This test has been modified from the paint tinter's instructions. Its performance characteristics were determined by [facility] in a manner consistent with CLIA requirements. This test has not been cleared or approved by the U.S. Food and Drug Administration. Test Performed by: [facility] - [address] [address] 18 A REVIEW OF THE LITERATURE SUGGESTS THE FOLLOWING RANGES FOR THE CLASSIFICATION OF 25-OH VITAMIN D STATUS: VITAMIN D STATUS 25-OH VITAMIN D DEFICIENCY <20 NG/ML INSUFFICIENCY 20-30 NG/ML SUFFICIENCY 31 - 100 NG/ML TOXICITY > 100 NG/ML A PEDIATRIC REFERENCE RANGE HAS NOT BEEN ESTABLISHED USING THIS METHOD. 19 Performed using Siemens CamStent immunoassay. Care must be taken when interpreting [...] Location Provider Dx Diagnosis Office Visit 01/01/2019 [facility] Brandon Danisleslye Boyle, E78.2 Mixed hyperlipidemia 10:45a M.D. L20.9 Atopic [...] Other malaise Z52.4 Kidney donor Z79.899 Other vermin exterminator (current) drug therapy R60.0 Localized edema Office Visit 12/01/2018 8:45a [place] [facility] Sheldon Moss, G43.009 Migraine w/o aura, N.P. 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 K59.00 Constipation, unspecified E66.09 Other obesity due to excess calories Z79.899 Other vermin exterminator (current) drug therapy M54.6 Pain in thoracic spine M54.17 Radiculopathy, lumbosacral region M54.5 Low back pain E55.9 Vitamin D deficiency, unspecified E78.2 Mixed hyperlipidemia R60.0 Localized edema Office Visit 10/29/2018 9:00a [place] [facility] Sheldon Moss, G43.009 Migraine w/o aura, N.P. 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 K59.00 Constipation, unspecified E66.09 Other obesity due to excess calories Z79.899 Other vermin exterminator (current) drug therapy M54.6 Pain in thoracic spine M54.17 Radiculopathy, lumbosacral region M54.5 Low back pain E55.9 Vitamin D deficiency, unspecified E78.2 Mixed hyperlipidemia R60.0 Localized edema Office Visit 10/03/2018 4:30p [place] [facility] Sheldon Moss, G43.009 Migraine w/o aura, N.P. 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 K59.00 Constipation, unspecified E66.09 Other obesity due to excess calories Z79.899 Other correction (current) drug therapy M54.6 Pain in thoracic spine M54.17 Radiculopathy, lumbosacral region M54.5 Low back pain E55.9 Vitamin D deficiency, unspecified E78.2 Mixed hyperlipidemia R60.0 Localized edema Office Visit 09/19/2018 3:15p [place] [facility] Sheldon Moss, G43.009 Migraine w/o aura, N.P. 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 K59.00 Constipation, unspecified E66.09 Other obesity due to excess calories Z79.899 Other correction (current) drug therapy M54.6 Pain in thoracic spine M54.17 Radiculopathy, lumbosacral region M54.5 Low back pain E55.9 Vitamin D deficiency, unspecified E78.2 Mixed hyperlipidemia R60.0 Localized edema Office Visit 09/10/2018 9:00a [place] [facility] Sheldon Moss, G43.009 Migraine w/o aura, N.P. 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 K59.00 Constipation, unspecified E66.09 Other obesity due to excess calories Z79.899 Other vermin exterminator (current) drug therapy M54.6 Pain in thoracic spine M54.17 Radiculopathy, lumbosacral region M54.5 Low back pain E55.9 Vitamin D deficiency, unspecified E78.2 Mixed hyperlipidemia Office Visit 09/05/2018 8:45a [place] [facility] Sheldon Moss, G43.009 Migraine w/o aura, N.P. 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 K59.00 Constipation, unspecified E66.09 Other obesity due to excess calories Z79.899 Other vermin exterminator (current) drug therapy E55.9 Vitamin D deficiency, unspecified M54.6 Pain in thoracic spine M54.17 Radiculopathy, lumbosacral region M54.5 Low back pain Office Visit 08/05/2018 8:30a [place] [facility] Fausto Taylorronny G43.009 Migraine w/o auraMont[place], MMayelin 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 K59.00 Constipation, unspecified E66.09 Other obesity due to excess calories Z79.899 Other vermin exterminator (current) drug therapy E55.9 Vitamin D deficiency, unspecified Office Visit 07/08/2018 8:30a [place] [facility] Malathi Taylor G43.009 Migraine w/o [place] alarcon M.D. 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 K59.00 Constipation, unspecified E66.09 Other obesity due to excess calories Z79.899 Other correction (current) drug therapy E55.9 Vitamin D deficiency, unspecified Assessments Date Code Description Provider 01/01/2019 E78.2 Mixed hyperlipidemia Malathi Taylor M.D. 01/01/2019 L20.9 Atopic dermatitis, unspecified Malathi Taylor M.D. 01/01/2019 J30.9 Allergic rhinitis, unspecified Malathi Taylor M.D. 01/01/2019 K21.9 Gastro-esophageal reflux disease without BrandonMalathi crowe M.D. esophagitis 01/01/2019 K30 Functional dyspepsia Malathi [...] donor Malathi Taylor M.D. 01/01/2019 Z79.899 Other vermin exterminator (current) drug therapy Malathi Taylor M.D. 01/01/2019 [...] 12/01/2018 F41.9 Anxiety disorder, unspecified Sheldon Moss [place] 12/01/2018 R53.81 Other malaise Sheldon Moss, N.P. 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 12/01/2018 K59.00 Constipation, unspecified Sheldon Moss N.P. 12/01/2018 E66.09 Other obesity due to excess calories Sheldon Moss N.P. 12/01/2018 Z79.899 Other correction (current) drug therapy Sheldon Moss N.P. 12/01/2018 [...] without obstruction or Sheldon Moss N.P. gangrene 10/29/2018 L20.9 Atopic dermatitis, unspecified Sheldon [...] calories Sheldon Moss N.P. 10/29/2018 Z79.899 Other correction (current) drug therapy Sheldon Moss N.P. 10/29/2018 M54.6 Pain in thoracic spine Sheldon Moss N.P. 10/29/2018 M54.17 Radiculopathy, lumbosacral region Sheldon Moss N.P. 10/29/2018 M54.5 Low back pain Sheldon Moss, N.P. 10/29/2018 E55.9 Vitamin D deficiency, unspecified Sheldon Moss N.P. 10/29/2018 E78.2 Mixed hyperlipidemia Sheldon Moss N.P. 10/29/2018 R60.0 Localized edema Sheldon Moss N.P. 10/03/2018 G43.009 Migraine without aura, not intractable, Sheldon Moss, N.P. without status migra 10/03/2018 K21.9 Gastro-esophageal reflux disease without Sheldon Moss N.[place] esophagitis 10/03/2018 K30 Functional dyspepsia Sheldon Moss N.P. 10/03/2018 K44.9 Diaphragmatic hernia without obstruction or Sheldon Moss N.[place] gangrene 10/03/2018 L20.9 Atopic dermatitis, unspecified Sheldon Moss N.P. 10/03/2018 J30.9 Allergic rhinitis, unspecified Sheldon Moss N.P. 10/03/2018 G47.00 Insomnia, unspecified Sheldon Moss N.P. 10/03/2018 F41.9 Anxiety disorder, unspecified Sheldon Moss N.P. 10/03/2018 R53.81 Other malaise Sheldon Moss N.P. 10/03/2018 Z52.4 Kidney donor Sheldon Moss N.P. 10/03/2018 K59.00 Constipation, unspecified Sheldon Moss N.P. 10/03/2018 E66.09 Other obesity due to excess calories Sheldon Moss N.P. 10/03/2018 Z79.899 Other correction (current) drug therapy Sheldon Moss N.P. 10/03/2018 [...] without obstruction or Sheldon Moss, N.P. gangrene 09/19/2018 L20.9 Atopic dermatitis, unspecified Sheldon [...] calories Sheldon Moss N.P. 09/19/2018 Z79.899 Other vermin exterminator (current) drug therapy Sheldon Moss N.P. 09/19/2018 [...] gangrene 09/10/2018 L20.9 Atopic dermatitis, unspecified Sheldon Moss, N.P. 09/10/2018 J30.9 Allergic rhinitis, unspecified Sheldon Moss, N.P. 09/10/2018 G47.00 Insomnia, unspecified Sheldon Moss N.P. 09/10/2018 F41.9 Anxiety disorder, unspecified Sheldon Moss, N.P. 09/10/2018 R53.81 Other malaise Sheldon Moss N.P. 09/10/2018 Z52.4 Kidney donor Sheldon Moss N.P. 09/10/2018 K59.00 Constipation, unspecified Sheldon Moss N.P. 09/10/2018 E66.09 Other obesity due to excess calories Sheldon Moss N.P. 09/10/2018 Z79.899 Other correction (current) drug therapy Sheldon Moss N.P. 09/10/2018 M54.6 Pain in thoracic spine Sheldon Moss N.P. 09/10/2018 M54.17 Radiculopathy, lumbosacral region Sheldon Moss N.P. 09/10/2018 M54.5 Low back pain Sheldon Moss N.P. 09/10/2018 E55.9 Vitamin D deficiency, unspecified Sheldon Moss N.P. 09/10/2018 E78.2 Mixed hyperlipidemia Sheldon Moss N.P. 09/05/2018 G43.009 Migraine without aura, not intractable, Sheldon Moss N.P. without status migra 09/05/2018 K21.9 Gastro-esophageal reflux [...] Moss N.P. 09/05/2018 K59.00 Constipation, unspecified Sheldon Moss, N.P. 09/05/2018 E66.09 Other obesity due to excess calories Sheldon Moss N.P. 09/05/2018 Z79.899 Other vermin exterminator (current) drug therapy Sheldon Moss N.P. 09/05/2018 E55.9 Vitamin D deficiency, unspecified Sheldon Moss, N.P. 09/05/2018 M54.6 Pain in thoracic spine Sheldon Moss N.P. 09/05/2018 M54.17 Radiculopathy, lumbosacral region Sheldon Moss N.P. 09/05/2018 M54.5 Low back pain Sheldon Moss N.P. 09/04/2018 G43.009 Migraine without aura, not intractable, Malathi Taylor M.D. without status migra 09/04/2018 K21.9 Gastro-esophageal reflux disease without BrandonMalathi crowe M.D. esophagitis 09/04/2018 K30 Functional dyspepsia Malathi [...] calories Malathi Taylor M.D. 09/04/2018 Z79.899 Other correction (current) drug therapy Malathi Taylor M.D. 09/04/2018 E55.9 Vitamin D deficiency, unspecified Malathi Taylor M.D. 08/05/2018 G43.009 Migraine without aura, not intractable, Malathi Taylor M.D. without status migra 08/05/2018 K21.9 Gastro-esophageal reflux disease without Malathi Taylor M.D. esophagitis 08/05/2018 K30 Functional dyspepsia Malathi [...] calories Malathi Taylor M.D. 08/05/2018 Z79.899 Other correction (current) drug therapy Malathi Taylor M.D. 08/05/2018 E55.9 Vitamin D deficiency, unspecified Malathi Taylor M.D. 07/08/2018 G43.009 Migraine without aura, not intractable, Malathi Taylor M.D. without status migra 07/08/2018 K21.9 Gastro-esophageal reflux disease without Malathi Taylor M.D. esophagitis 07/08/2018 K30 Functional dyspepsia Malathi Taylor M.D. 07/08/2018 K44.9 Diaphragmatic hernia without obstruction or Malathi Taylor M.D. gangrene 07/08/2018 L20.9 Atopic dermatitis, unspecified Malathi Taylor M.D. 07/08/2018 J30.9 Allergic rhinitis, unspecified Malathi Taylor M.D. 07/08/2018 G47.00 Insomnia, unspecified Malathi Taylor M.D. 07/08/2018 F41.9 Anxiety disorder, unspecified Malathi Taylor M.D. 07/08/2018 R53.81 Other malaise Malathi Taylor M.D. 07/08/2018 Z52.4 Kidney donor Malathi Taylor M.D. 07/08/2018 K59.00 Constipation, unspecified Malathi Taylor M.D. 07/08/2018 E66.09 Other obesity due to excess calories Malathi Taylor M.D. 07/08/2018 Z79.899 Other vermin exterminator (current) drug therapy Malathi Taylor M.D. 07/08/2018 E55.9 Vitamin D deficiency, unspecified Malathi Taylor M.D. Plan of Treatment Future Appointment(s):01/30/2019 8:45 am - Sheldon Moss N.P. at [facility]01/01/2019 - Malathi Taylor M.D.E78.2 Mixed hyperlipidemiaComments:DIET REVIEWED CONTINUE DIETWT LOSSF/U LAB FBWL20.9 Atopic dermatitis, unspecifiedComments:SKIN CARE INSTRUCTIONS LOTION OR BABY OIL 2-3 APPLICATION PER DAYUSE MOISTURIZING SOAPAVOID PROLONGED WATER EXPOSUREAVOID USING HOT WATER IN JGLDOMH16.9 Allergic rhinitis, unspecifiedComments:INCREASE PO FLUID USE ANTIHISTAMINE PRN SECOND HAND SMOKING [id number] Gastro-esophageal reflux disease without esophagitisComments:AVOID CAFFEINE, ETOH AND SPICY FOODSTUMS OR MYLANTA PRN CALL WITH PROBLEMS OR [id number] Functional dyspepsiaComments: AVOID CAFFEINE, ETOH AND SPICY FOODSTUMS OR MYLANTA PRN CALL WITH PROBLEMS OR AVHOCSXWO55.9 Diaphragmatic hernia without obstruction or gangreneComments: AVOID CAFFEINE, ETOH AND SPICY FOODSTUMS OR MYLANTA PRN CALL WITH PROBLEMS OR NKGSVRQMX09.00 Constipation, unspecifiedComments:MOM OR MIRALAX PRNHIGH FIBER DIETINCREASE PO YAEQKI76.09 Other obesity due to excess caloriesComments:WT LOSS COUNCELLINGEXERCISEDIET COUNCILLING DUR TAYKLXFA89.9 Vitamin D deficiency , unspecifiedComments:INCREASE EXPOSURE TO SUNREVIEW OF DIETM54.6 Pain in thoracic nmmmmS89.5 Low back painM54.17 Radiculopathy, lumbosacral lxwlneY75.009 Migraine without aura, not intractable, without status migraComments:TYLENOL OR MOTRIN PRNRELAXATION/AVOID WWIVOMEISB78.00 Insomnia, unspecifiedComments:COUNCELLING AND REASSURANCE RELAXATION TECHNIQUES DISCUSSED COUNSELED RE: STRESSORS IN LIFE TYLENOLPM OR MOTRIN PM PRN DUR ZOHPHNYN20.9 Anxiety disorder, unspecifiedComments:COUNCELLING AND REASSURANCE RELAXATION TECHNIQUES DISCUSSEDCOUNSELED RE: STRESSORS IN LIFE AVOID ALLENERGY/HIGH CAFFEINE DVLLBDH93.81 Other malaiseComments:INCRFEASE PO FLUIDCOUNCELLING AND REASSURANCE REST DUR JOOCXTCV45.4 Kidney donorComments:OBSERVEF/U WITH NEPHROLOGY PRNZ79.899 Other vermin exterminator (current) drug therapyComments:REVIEWED MEDICATIONS AND DIRECTIONS WITH PATIENT DUR FEWKFHPB88.0 Localized edema Functional Status Functional Condition Comment Date Status Soft contacts Active Glasses Active Mental Status Description No Information Available Referrals Refer to Reason for Referral Status Appt Date [facility] BARIATRIC SURGERY CONSULT Closed 10/22/2017 [address] [id number] [phone]
[2019-02-25] MEDS ORDERED: Ondansetron ODT TAB* 4 MG PO ONE (06:00)
[2019-02-25] MEDS ORDERED: Lactated Ringers 1000 ML Bag* 1,000 ML IV SCH (06:00)
[2019-02-25] MEDS ORDERED: Dexamethasone IV* 4 MG/ML 1 ML (4 MG) IV SLOW PU ONE (06:00)
[2019-02-25] MEDS ORDERED: Famotidine IV* 10 MG/ML 2 ML (20 mg) IV ONE (06:00)
[2019-02-25] MEDS ORDERED: Heparin VIAL(*) 5000 UNITS/ML VIAL (FIVE THOUSAND) ONE (06:19)
[2019-02-25] MEDS ORDERED: Ondansetron ODT TAB* 4 MG ONE (06:19)
[2019-02-25] MEDS ORDERED: Dexamethasone IV* 4 MG/ML 1 ML (4 MG) ONE (06:19)
[2019-02-25] MEDS ORDERED: Famotidine IV* 10 MG/ML 2 ML (20 mg) ONE (06:20)
[2019-02-25] MEDS ORDERED: Clindamycin 900 MG/D5W BAG(*) 900 MG/50 ML BAG IVPB ONE (06:20)
[2019-02-25] MEDS ORDERED: Bupivacaine 0.25% EPI 200,000* 30 ML SDV ONE (06:57)
[2019-02-25] MEDS ORDERED: Rocuronium* 10 MG/ML VIAL ONE (07:24)
[2019-02-25] MEDS ORDERED: KETAMINE HCL* 50 MG/ML 10 ML VIAL ONE (07:24)
[2019-02-25] MEDS ORDERED: fentaNYL* 50 MCG/ML 2 ML VIAL (100 MCG VIAL) ONE ×2 (07:24→10:09)
[2019-02-25] MEDS ORDERED: Midazolam* 1 MG/ML 5 ML VIAL (5 MG) ONE (07:24)
[2019-02-25] MEDS ORDERED: Scopolamine 1.5 mg* PATCH ONE (08:06)
[2019-02-25] MEDS ORDERED: EPHEDrine (Pressors)* 50 MG/ML VIAL ONE (08:07)
[2019-02-25] MEDS ORDERED: Lidocaine 2% PF * 5 ML VIAL ONE (08:07)
[2019-02-25] MEDS ORDERED: Sugammadex * 200 MG/2 ML VIAL IV PUSH ONE (08:07)
[2019-02-25] MEDS ORDERED: Propofol* 10 MG/ML 20 ML BTL ONE (08:07)
[2019-02-25] MEDS ORDERED: HYDROmorphone INJ1* 1 MG/ML SYRINGE ONE (08:29)
[2019-02-25] MEDS ORDERED: Acetaminophen IV 1GM/100ML * 100 ML ONE (08:34)
--- NOTE | 2019-02-25 09:20 | BRIEFOPN ---
Brief Operative/Procedure Note - Operation Details Pre-Op Diagnosis: Morbid obesity Post-Op Diagnosis: same Procedures: Laparoscopic sleeve gastrectomy Surgeon(s)/Proceduralists: Dr. Shah. Assist: DUNIA Koenig; KYLER Goodrich Anesthesia: GET Estimated Blood Loss: <5cc; IV fluids: 1500cc Findings: as above Specimen(s)/Culture(s) Description: portion of stomach Complications: none
[2019-02-25] MEDS ORDERED: Ondansetron INJ* 2 MG/ML VIAL IV PRN (09:34)
[2019-02-25] MEDS ORDERED: HYDROmorphone INJ1* 1 MG/ML SYRINGE IV SLOW PU PRN (09:34)
[2019-02-25] MEDS ORDERED: Acetaminophen ADULT LIQ* 650 MG/20.3 ML UDC PO PRN (09:34)
[2019-02-25] MEDS ORDERED: HYDROcodone/ACET. 7.5/325 LIQ* 15 ML UDC PO PRN (09:34)
[2019-02-25] MEDS: fentaNYL* 50 MCG/ML 2 ML VIAL (100 MCG VIAL) IV PRN ×2 (10:12→10:15)
[2019-02-25] MEDS: Lactated Ringers 1000 ML Bag* 1,000 ML IV SCH ×2 (10:47→17:39)
[2019-02-25] MEDS: Ketorolac INJ* 30 MG/ML 1 ML VIAL IV SCH ×3 (11:08→22:02)
[2019-02-25] MEDS: Heparin VIAL(*) 5000 UNITS/ML VIAL (FIVE THOUSAND) SUBCUT SCH ×2 (14:40→22:02)
[2019-02-25] MEDS: HYDROmorphone INJ1* 1 MG/ML SYRINGE IV SLOW PU PRN ×2 (14:44→20:03)
[2019-02-25] MEDS: Famotidine IV* 10 MG/ML 2 ML (20 mg) IV SLOW PU SCH (20:43)
--- NOTE | 2019-02-25 22:25 | OP ---
[facility]; Primary care doctor * DATE OF OPERATION: 02/25/19 - ROOM #353 DATE OF : 80 SURGEON: Reddy Shah MD. [employer] INSTRUCTOR: DUNIA Cárdenas ANESTHESIOLOGIST: Dr. Jaramillo. ANESTHESIA: General. PRE-OP DIAGNOSIS: Clinically severe obesity. POST-OP DIAGNOSIS: Clinically severe obesity. OPERATIVE PROCEDURE: Laparoscopic sleeve gastrectomy. ESTIMATED BLOOD LOSS: Minimal. FLUIDS: Minimal crystalloid fluid given. SPECIMEN: Portion of stomach. DRAINS: None. DESCRIPTION OF PROCEDURE: The patient was identified in the preoperative area, marked, consent was signed. She was then taken to the operating room, placed on the operating table in the supine position. Sequential devices were placed on the bilateral lower extremities bilaterally. Preoperative antibiotics were given and general anesthesia induced. The patient's abdomen was prepped and draped in a standard surgical fashion and a time-out was performed. Folds of the umbilicus were elevated anteriorly and a Veress needle inserted into the abdominal cavity, which was then allowed to insufflate to a pressure of 15 mmHg. [place] between the xiphoid and umbilicus distal of the midline, a 12 mm optical trocar was inserted. Laparoscope was inserted through this. There was no evidence of injury from the trocar insertion or from the Veress needle, which was then removed. Additional trocars were then placed in the following positions; two 5 mm in the left upper quadrant and one 12 mm in the right upper quadrant. Review of the abdomen showed no free fluid. Intestine appeared normal. Liver was normal size. We then placed a Sophia retractor through a subxiphoid incision and retracted the liver anteriorly into the right. This exposed the gastroesophageal fat pad, which was grasped and we retracted to the right lower quadrant. Both blunt and sharp dissection was carried out to expose the gastrophrenic ligament as well as the crura. Next, a retrogastric tunnel was made on the greater curvature about 5 cm from the pylorus. LigaSure device was used to take the blood vessels of the greater curvature right up to the angle of His where we had previously dissected posterior attachments and the vessels were similarly taken until the stomach could be rotated on its axis. Next, the sleeve stomach was fashioned with 60-mm purple DIANA stapling device with reinforcement strips. This was performed over the bougie starting at the area of the antrum and extending it as we normally would, hugging the bougie right up to the proximal stomach. Four staple loads were used in all. The bougie was removed. Review of the staple line showed no bleeding. No corkscrewing. The transected portion of the stomach was then placed in an endoscopic retrieval bag. The liver retractor was removed. The liver fell back on top of the stomach, almost obscuring the full staple line with the exception of the antrum. The abdomen was allowed to collapse. The stomach was removed through the right upper quadrant incision site after dilating the area and the stomach was removed in its endoscopic retrieval bag and passed off as specimen. Next, we re-insufflated, placed the camera back in and closed the fascia at the right upper quadrant port site with an 0 Vicryl suture using a Weck device. The abdomen was allowed to collapse. The trocars were finally removed under direct vision and all 5 skin incisions were reapproximated with 4-0 Monocryl and subcuticular sutures followed by Steri-Strips and sterile dressing. The patient tolerated the procedure well and was transferred to the PACU in stable condition. [id number]/[facility] #: [id number] [place]
[2019-02-26] MEDS: Lactated Ringers 1000 ML Bag* 1,000 ML IV SCH ×2 (00:34→07:24)
[2019-02-26] MEDS: Ketorolac INJ* 30 MG/ML 1 ML VIAL IV SCH ×4 (04:00→16:12)
[2019-02-26] MEDS: Heparin VIAL(*) 5000 UNITS/ML VIAL (FIVE THOUSAND) SUBCUT SCH ×2 (05:41→14:07)
[2019-02-26] MEDS: Famotidine IV* 10 MG/ML 2 ML (20 mg) IV SLOW PU SCH (08:39)
[2019-02-26] MEDS ORDERED: D5W 1/2 NS KCl 20 Meq 1000 ML* 1,000 ML IV SCH (09:39)
--- NOTE | 2019-02-26 12:26 | PN ---
Progress Note - Progress Note Date of Service: 02/26/19 SOAP: Subjective: Comfortable in bed in NAD, reports feeling better since passing gas this morning , abdomen less tight denies nausea/vomiting[] Objective: Vital Signs Temp 98.7 F 02/26/19 11:18 Pulse 56 02/26/19 11:18 Resp 18 02/26/19 11:18 BP 105/64 02/26/19 11:18 Pulse Ox 95 02/26/19 11:18 Intake & Output 02/25/19 02/26/19 02/26/19 18:59 06:59 18:59 Intake Total 2490 0 990 Output Total 900 850 200 Balance 1590 -850 790 Intake: IV Fluids 2490 990 LR 2490 990 Oral 0 Output: Urine 900 850 200 UPPER GI: Fluoroscopic and radiographic examination of the upper tract tract was performed utilizing water-soluble contrast. The oral and frontal phase of deglutition appear unremarkable. The esophagus appears normal in anatomy and function. The stomach appears to be decreased in size with no evidence of extraluminal contrast. No obstruction is noted. IMPRESSION: Postoperative changes in the stomach without evidence of obstruction. No extraluminal contrast is noted. PEX:[] CHEST: CTA B/L CVS: Bradycardic rate, rhythm ABD: Soft, Hypo BS's, incision sites Tegaderm dressings in place, no errythema eccymosis, + incisional tenderness EXT: Calves soft B/L Assessment: POD #1 S/P Laparoscopic sleeve Gastrectomy, stable, doing well[] Plan: Start Bariatric clear diet. If Tolerated, possible D/C home later today. Continue ambulating, Incentive spirometry Patient has post operative appointments scheduled Above D/W Dr Shah[]
[2019-02-26 16:13] VITALS: BP 99/60
--- NOTE | 2019-02-26 19:27 | DS ---
DISCHARGE SUMMARY: DATE OF ADMISSION: 02/25/19 DATE OF DISCHARGE: 02/26/19 ATTENDING SURGEON: Dr. Reddy Shah.* (DICTATED BY DUNIA LAINEZ) DIAGNOSIS FOR ADMISSION: Morbid obesity. HOSPITAL COURSE: The patient is a 39-year-old female admitted for morbid obesity for a laparoscopic sleeve gastrectomy on 02/25/19. The patient tolerated the procedure well and the patient was then transferred to the surgical care unit for postoperative medical care. On 02/26/19, postop day 1, the patient was doing well in the morning. Chest clear, Heart RRR, Abdomen mildly tender dressings intact. Upper GI series showed no leaks. The patient was started on a bariatric clear diet, which she tolerated well, had a bowel movement, The patient was to be discharged home. Discharge instructions were given regarding her diet, her medications, her activity, and her followup. The patient already had preoperative liquid pain medicine prior to admission. She has been advised to get adult liquid Tylenol and omeprazole tablets to be taken once daily. The patient was discharged home in stable condition on 02/26/19. DUNIA LAINEZ [id number]/[facility] #: [id number] [employer]
[2019-02-28] MEDS ORDERED: Scopolamine PATCH Remove* 1 NOTE MISC PATCH OFF ONE (05:51)
== END 2019-02-26 17:10 | disposition home or self-care (01) | DRG 403 ==
LOC: AA 05:49 → SSU 09:34
PROVIDERS: ADMIT Surgery; ATTEND Surgery
PROC: 0DB64Z3 Excision of Stomach, Percutaneous Endoscopic Approach, Vertical (ICD-10-PCS; principal; 2019-02-25 07:30)
DX: E66.01 Morbid (severe) obesity due to excess calories (principal); K21.9 Gastro-esophageal reflux disease without esophagitis; E78.5 Hyperlipidemia, unspecified; F41.9 Anxiety disorder, unspecified; F32.9 Major depressive disorder, single episode, unspecified; G43.909 Migraine, unspecified, not intractable, without status migrainosus; Z98.51 Tubal ligation status; Z68.37 Body mass index [BMI] 37.0-37.9, adult; Z90.5 Acquired absence of kidney; Z88.1 Allergy status to other antibiotic agents; Z88.0 Allergy status to penicillin; Z52.4 Kidney donor; Z80.8 Family history of malignant neoplasm of other organs or systems; Z80.1 Family history of malignant neoplasm of trachea, bronchus and lung; Z82.49 Family history of ischemic heart disease and other diseases of the circulatory system; Z81.1 Family history of alcohol abuse and dependence
CPT/HCPCS: 43775; 74246; 88307; A9270-GY; J1100; J1170; J1644; J1885; J2250; J2704; J3010

== ENCOUNTER 2020-02-18 11:15 | Inpatient (IN) ==
[~2020-02-18 11:15] MED LIST changes: +Buffered Lidocaine 1% SYRIN 1 ml INTRADERM ONE; -Buffered Lidocaine 1% SYRIN* 1 ML/SYRINGE INTRADERM ONE; -DiMENhydriNATE IV* 50 MG/ML VIAL IV PUSH PRN; -HYDROmorphone INJ1* 1 MG/ML SYRINGE IV PRN; +Lactated Ringers 1000 ml BAG 1,000 ML IV SCH; +Naloxone 0.4 mg VIAL 0.4 mg/ml 1 ml VIAL IV PRN; -Naloxone* 0.4 MG/ML 1 ML VIAL IV PRN; -PROCHLORPERAZINE INJ 5 MG/ML 2 ML VIAL IV PRN; -Scopolamine 1.5 mg* PATCH TRANSDERM PRN
[2020-02-18] MEDS ORDERED: Clindamycin 900 MG/D5W BAG 900 MG/50 ML BAG IVPB ONE (12:17)
[2020-02-18] MEDS ORDERED: Heparin 5000 UNITS/ML 1 mL VIAL ONE (12:20)
[2020-02-18] MEDS ORDERED: Midazolam 2 mg/2 ml VIAL 1 mg/ml 2 ml VIAL (2 mg) ONE (16:20)
[2020-02-18] MEDS ORDERED: Lidocaine 2% PF 5 ML VIAL ONE (16:20)
[2020-02-18] MEDS ORDERED: Propofol 10 MG/ML 20 ML BTL ONE (16:20)
[2020-02-18] MEDS ORDERED: fentaNYL 100 mcg/2 ml 50 MCG/ML VIAL ONE ×2 (16:20→20:59)
[2020-02-18] MEDS ORDERED: Rocuronium 50 mg VIAL 10 mg/ml 5 ml VIAL (50 mg) ONE ×2 (16:20→18:31)
[2020-02-18] MEDS ORDERED: Bupivacaine 0.25% SDV 30 ML ONE (16:28)
[2020-02-18] MEDS ORDERED: Methylene Blue 0.5 % 50 MG/10 ML AMP IV ONE (16:28)
[2020-02-18] MEDS ORDERED: Dexamethasone IV 4 MG/ML VIAL 1 ml VIAL ONE (17:33)
[2020-02-18] MEDS ORDERED: Ondansetron 4 mg VIAL 2 MG/ML 2 ml VIAL ONE (17:33)
[2020-02-18] MEDS ORDERED: EPHEDrine (Pressors) 50 MG/ML VIAL ONE (17:35)
[2020-02-18] MEDS ORDERED: HYDROmorphone 1 MG/1 ML SYRINGE ONE (17:38)
[2020-02-18] MEDS ORDERED: Acetaminophen IV 1 GM/100ML 100 ML ONE (17:39)
[2020-02-18] MEDS ORDERED: Ondansetron 4 mg VIAL 2 MG/ML 2 ml VIAL IV PRN (20:35)
[2020-02-18] MEDS ORDERED: HYDROcodone/ACET. 7.5/325 LIQ 15 ML UDC PO PRN (20:35)
[2020-02-18] MEDS: fentaNYL 100 mcg/2 ml 50 MCG/ML VIAL IV PRN ×3 (21:05→21:32)
[2020-02-18] MEDS: HYDROmorphone 0.5 MG/0.5 ML SYRINGE IV SLOW PU PRN (22:33)
[2020-02-18] MEDS: Famotidine IV 10 MG/ML 2 ml VIAL (20 mg) IV SLOW PU SCH (22:33)
[2020-02-18] MEDS: Lactated Ringers 1000 ml BAG 1,000 ML IV SCH (22:43)
[2020-02-19] MEDS: HYDROmorphone 0.5 MG/0.5 ML SYRINGE IV SLOW PU PRN ×4 (01:34→21:05)
[2020-02-19] MEDS: Heparin 5000 UNITS/ML 1 mL VIAL SUBCUT SCH ×3 (01:38→22:28)
[2020-02-19] MEDS: Lactated Ringers 1000 ml BAG 1,000 ML IV SCH ×2 (04:22→16:43)
[2020-02-19 06:26] LABS: ABS Lymphocytes 0.8 10^3/ul (1.0-4.8); ABS Monocytes 0.2 10^3/ul (0-0.8); ABS Neutrophils 6.6 10^3/ul (1.5-7.7); Hematocrit 34 % (35-47); Hemoglobin 11.5 g/dL (12.0-16.0); Lymphocyte % 10.2 %; Mean Corpuscular HGB Conc 34 g/dL (31-36); Mean Corpuscular Hemoglobin 29 pg (27-31); Mean Corpuscular Volume 87 fL (80-97); Mean Platelet Volume 9.3 fL (7.4-10.4); Platelet Count 145 10^3/uL (150-450); Red Blood Count 3.92 10^6 /uL (3.70-4.87); Red Cell Distribution Width 13 % (10-15); White Blood Count 7.7 10^3/uL (3.5-10.8)
[2020-02-19 06:52] LABS: INR 1.15 (0.82-1.09)
[2020-02-19 06:55] LABS: BUN/Creatinine Ratio 17.6 (8-20); Calcium 8.7 mg/dL (8.6-10.3); EGFR Non-African American 95.8 (>60); Magnesium 1.5 mg/dL (1.9-2.7); Phosphorus 5.2 mg/dL (2.5-5.0); Potassium 4.6 mmol/L (3.5-5.0)
[2020-02-19] MEDS ORDERED: NS 0.9% 1000 ml BAG 1,000 ML IV ONE (07:39)
[2020-02-19] MEDS ORDERED: Magnesium Sulfate IV 1GM/100ML 1 GM/100 ML BAG IV ONE (07:40)
[2020-02-19] MEDS ORDERED: Iron Sucrose 200 MG in NS 0.9% 100 ml BAG 100 ML IVPB ONE (08:00)
[2020-02-19] MEDS: Famotidine IV 10 MG/ML 2 ml VIAL (20 mg) IV SLOW PU SCH ×2 (10:13→21:05)
[2020-02-19] MEDS ORDERED: Magnesium Sulfate 2 gm BAG 2 GM/50 ML BAG IVPB ONE (15:25)
[2020-02-19] MEDS: D5W 1/2 NS KCl 20 meq 1000 ml 1,000 ML IV SCH (22:27)
[2020-02-20] MEDS: Heparin 5000 UNITS/ML 1 mL VIAL SUBCUT SCH (06:04)
[2020-02-20] MEDS: D5W 1/2 NS KCl 20 meq 1000 ml 1,000 ML IV SCH (06:13)
[2020-02-20] MEDS: Famotidine IV 10 MG/ML 2 ml VIAL (20 mg) IV SLOW PU SCH (07:40)
[2020-02-20 08:33] VITALS: BP 96/62
== END 2020-02-20 13:00 | disposition home or self-care (01) | DRG 222 ==
LOC: AA 11:15 → SSU 21:56
PROVIDERS: ADMIT Surgery; ATTEND Surgery

== ENCOUNTER 2020-04-11 12:24 | Inpatient (IN) ==
[2020-04-11] MEDS ORDERED: Ondansetron 4 mg VIAL 2 MG/ML 2 ml VIAL IV ONE (15:23)
[2020-04-11] MEDS ORDERED: Morphine 4 MG/ML VIAL (1 ml) IV ONE (15:23)
[2020-04-11] MEDS ORDERED: NS 0.9% 1000 ml BAG 1,000 ML IV ONE (15:25)
[2020-04-11 16:20] LABS: ABS Lymphocytes 1.9 10^3/ul (1.0-4.8); ABS Monocytes 0.3 10^3/ul (0-0.8); ABS Neutrophils 5.2 10^3/ul (1.5-7.7); Eosinophil % 0.7 %; Hematocrit 39 % (35-47); Hemoglobin 13.1 g/dL (12.0-16.0); Mean Corpuscular HGB Conc 33 g/dL (31-36); Mean Corpuscular Hemoglobin 29 pg (27-31); Mean Corpuscular Volume 87 fL (80-97); Mean Platelet Volume 9.1 fL (7.4-10.4); Nucleated Red Blood Cells % 0.1; Platelet Count 214 10^3/uL (150-450); Red Cell Distribution Width 14 % (10-15); White Blood Count 7.5 10^3/uL (3.5-10.8)
[2020-04-11 17:05] LABS: ALT 15 U/L (7-52); AST 12 U/L (13-39); Albumin 4.1 g/dL (3.2-5.2); Albumin/Globulin Ratio 1.6 (1-3); Alkaline Phosphatase 57 U/L (34-104); Anion Gap 7 mmol/L (2-11); BUN/Creatinine Ratio 15.9 (8-20); Blood Urea Nitrogen 10 mg/dL (6-24); C Reactive Protein < 1.00 mg/L (<8.01); CO2 Carbon Dioxide 25 mmol/L (22-32); Calcium 9.3 mg/dL (8.6-10.3); Chloride 107 mmol/L (101-111); EGFR African American 126.6 (>60); EGFR Non-African American 104.7 (>60); Globulin 2.6 g/dL (2-4); Glucose 77 mg/dL (70-100); Potassium 3.8 mmol/L (3.5-5.0); Sodium 139 mmol/L (135-145); Total Protein 6.7 g/dL (6.4-8.9)
[2020-04-11] MEDS ORDERED: Iodixanol (CONTRAST) 320 MG/ML 100 ML SDV IV ONE (17:30)
[2020-04-11] MEDS ORDERED: Bupivacaine 0.25% SDV 30 ML ONE (19:38)
[2020-04-11] MEDS ORDERED: Clindamycin 900 MG/D5W BAG 900 MG/50 ML BAG IVPB ONE (19:40)
[2020-04-11] MEDS ORDERED: fentaNYL 250 mcg/5 ml 50 MCG/ML 5 ml VIAL (250 MCG) ONE (19:44)
[2020-04-11] MEDS ORDERED: Midazolam 2 mg/2 ml VIAL 1 mg/ml 2 ml VIAL (2 mg) ONE (19:44)
[2020-04-11] MEDS ORDERED: Rocuronium 50 mg VIAL 10 mg/ml 5 ml VIAL (50 mg) ONE (19:44)
[2020-04-11] MEDS ORDERED: Propofol 10 MG/ML 20 ML BTL ONE (19:44)
[2020-04-11] MEDS ORDERED: Lactated Ringers 1000 ml BAG 1,000 ML IV SCH ×2 (20:00)
[2020-04-11] MEDS ORDERED: EPHEDrine (Pressors) 50 MG/ML VIAL ONE (20:29)
[2020-04-11] MEDS ORDERED: Dexamethasone IV 4 MG/ML VIAL 1 ml VIAL ONE (20:37)
[2020-04-11] MEDS ORDERED: Phenylephrine 40 mcg/mL 10mL (400mcg) SYRINGE ONE (20:38)
[2020-04-11] MEDS ORDERED: Naloxone 0.4 mg VIAL 0.4 mg/ml 1 ml VIAL IV PRN (20:40)
[2020-04-11] MEDS ORDERED: HYDROmorphone 1 MG/1 ML SYRINGE IV PRN (20:40)
[2020-04-11] MEDS ORDERED: Ondansetron 4 mg VIAL 2 MG/ML 2 ml VIAL IV PRN ×2 (20:40→22:33)
[2020-04-11] MEDS ORDERED: Ondansetron 4 mg VIAL 2 MG/ML 2 ml VIAL ONE (20:51)
[2020-04-11] MEDS ORDERED: Acetaminophen IV 1 GM/100ML 1,000 MG/100 ML VIAL IVPB ONE (22:37)
[2020-04-11] MEDS: fentaNYL 100 mcg/2 ml 50 MCG/ML VIAL IV PRN ×2 (22:44→22:55)
[2020-04-11] MEDS ORDERED: NS 0.9% 1000 ml BAG 1,000 ML IV SCH (22:45)
[2020-04-12] MEDS ORDERED: HYDROmorphone 0.5 MG/0.5 ML SYRINGE IV SLOW PU PRN (00:36)
[2020-04-12 05:28] LABS: ABS Lymphocytes 0.5 10^3/ul (1.0-4.8); ABS Monocytes 0.1 10^3/ul (0-0.8); ABS Neutrophils 5.4 10^3/ul (1.5-7.7); Hematocrit 33 % (35-47); Hemoglobin 11.1 g/dL (12.0-16.0); Lymphocyte % 8.8 %; Mean Corpuscular HGB Conc 33 g/dL (31-36); Mean Corpuscular Hemoglobin 29 pg (27-31); Mean Corpuscular Volume 86 fL (80-97); Mean Platelet Volume 8.6 fL (7.4-10.4); Platelet Count 157 10^3/uL (150-450); Red Blood Count 3.83 10^6 /uL (3.70-4.87); Red Cell Distribution Width 14 % (10-15); White Blood Count 6.1 10^3/uL (3.5-10.8)
[2020-04-12 05:43] LABS: BUN/Creatinine Ratio 15.4 (8-20); Calcium 8.7 mg/dL (8.6-10.3); EGFR Non-African American 130.6 (>60); Potassium 4.1 mmol/L (3.5-5.0)
[2020-04-12 11:39] VITALS: BP 93/56
[2020-04-13] MEDS ORDERED: Heparin 5000 UNITS/ML 1 mL VIAL SUBCUT SCH (06:00)
== END 2020-04-12 14:40 | disposition home or self-care (01) | DRG 224 ==
LOC: ED 12:24 → OR 19:47 → SSU 22:33
PROVIDERS: ADMIT Hospitalist; ATTEND Surgery

== ENCOUNTER 2022-03-09 08:35 | Observation (INO) ==
[2022-03-09] MEDS ORDERED: Ondansetron 4 mg VIAL 2 MG/ML 2 ml VIAL IV ONE (10:11)
[2022-03-09] MEDS ORDERED: Lactated Ringers 1000 ml BAG 1,000 ML IV ONE (10:11)
[2022-03-09] MEDS ORDERED: Morphine 4 MG/ML VIAL (1 ml) IV ONE (10:11)
[2022-03-09] MEDS ORDERED: Thiamine 100 MG/ML 2 ml VIAL 100 MG, Folic Acid IV 1 MG, Multiple Vitamin IV ADULT 10 M... IV ONE (11:00)
[2022-03-09 11:03] LABS: ALT 33 U/L (7-52); Albumin 4.6 g/dL (3.2-5.2); Albumin/Globulin Ratio 1.5 (1-3); Alkaline Phosphatase 69 U/L (35-149); Blood Urea Nitrogen 12 mg/dL (6-24); C Reactive Protein < 1.00 mg/L (<8.01); CO2 Carbon Dioxide 28 mmol/L (22-32); Calcium 9.4 mg/dL (8.6-10.3); Chloride 103 mmol/L (101-111); Globulin 3.1 g/dL (2-4); Glucose 78 mg/dL (70-100); Lipase 84 U/L (11.0-82.0); Sodium 138 mmol/L (135-145); Total Protein 7.7 g/dL (6.4-8.9); eGFR CKD-EPI 112.7 (>60)
[2022-03-09 11:04] LABS: Anion Gap 7 mmol/L (2-11)
[2022-03-09 11:07] LABS: HCG Pregnancy < 0.60 mIU/mL
[2022-03-09 11:40] LABS: ABS Eosinophils 0.1 10^3/ul (0-0.6); ABS Lymphocytes 2.3 10^3/ul (1.0-4.8); ABS Monocytes 0.4 10^3/ul (0-0.8); Eosinophil % 0.7 %; Hematocrit 40 % (35-47); Hemoglobin 13.2 g/dL (12.0-16.0); Lymphocyte % 26.2 %; Mean Corpuscular HGB Conc 33 g/dL (31-36); Mean Corpuscular Hemoglobin 29 pg (27-31); Mean Corpuscular Volume 88 fL (80-97); Mean Platelet Volume 9.8 fL (7.4-10.4); Nucleated Red Blood Cells % 0.2; Platelet Count 253 10^3/uL (150-450); Red Blood Count 4.56 10^6 /uL (3.70-4.87); Red Cell Distribution Width 13 % (10-15); White Blood Count 8.7 10^3/uL (3.5-10.8)
[2022-03-09] MEDS ORDERED: Iodixanol (CONTRAST) 320 MG/ML 100 ML SDV IV ONE (11:48)
[2022-03-09 12:22] LABS: Magnesium 1.8 mg/dL (1.9-2.7)
[2022-03-09 12:28] LABS: Urine Appearance Clear; Urine Bilirubin Negative (Negative); Urine Blood Negative (Negative); Urine Color Yellow; Urine Glucose Negative (Negative); Urine Ketones Negative (Negative); Urine Nitrite Negative (Negative); Urine Protein Negative (Negative); Urine Specific Gravity 1.016 (1.002-1.030); Urine Urobilinogen Negative (Negative)
[2022-03-09] MEDS ORDERED: HYDROmorphone 0.5 MG/0.5 ML SYRINGE IV SLOW PU PRN (15:06)
[2022-03-09] MEDS ORDERED: Ondansetron 4 mg VIAL 2 MG/ML 2 ml VIAL IV PRN (15:06)
[2022-03-09] MEDS ORDERED: Magnesium Sulfate 2 gm BAG 2 GM/50 ML BAG IVPB ONE (15:10)
[2022-03-09] MEDS: Lactated Ringers 1000 ml BAG 1,000 ML IV SCH (18:57)
[2022-03-09] MEDS ORDERED: fentaNYL 100 mcg/2 ml 50 MCG/ML VIAL ONE ×2 (20:13→23:01)
[2022-03-09] MEDS ORDERED: Metoclopramide 5 MG/ML VIAL (10 mg) ONE (20:13)
[2022-03-09] MEDS ORDERED: Propofol 10 MG/ML 20 ML BTL ONE (20:13)
[2022-03-09] MEDS ORDERED: Rocuronium 50 mg VIAL 10 mg/ml 5 ml VIAL (50 mg) ONE (20:13)
[2022-03-09] MEDS ORDERED: Dexamethasone IV 4 MG/ML VIAL 1 ml VIAL ONE (20:14)
[2022-03-09] MEDS ORDERED: Ondansetron 4 mg VIAL 2 MG/ML 2 ml VIAL ONE (20:14)
[2022-03-09] MEDS ORDERED: Midazolam 2 mg/2 ml VIAL 1 mg/ml 2 ml VIAL (2 mg) ONE (20:14)
[2022-03-09] MEDS ORDERED: Lidocaine 2% PF 5 ML VIAL ONE (20:19)
[2022-03-09] MEDS ORDERED: Clindamycin 900 MG/D5W BAG 900 MG/50 ML BAG IVPB ONE (20:56)
[2022-03-09] MEDS ORDERED: Famotidine IV 10 MG/ML 2 ml VIAL (20 mg) ONE (21:26)
[2022-03-09] MEDS ORDERED: Etomidate 20 mg/10 ml 2 MG/ML 10 ml VIAL ONE (21:54)
[2022-03-09] MEDS ORDERED: Glycopyrrolate IV 0.2 MG/ML 1 ML VIAL ONE (21:54)
[2022-03-09] MEDS ORDERED: HYDROmorphone 1 MG/1 ML SYRINGE IV PRN (22:56)
[2022-03-09] MEDS ORDERED: fentaNYL 100 mcg/2 ml 50 MCG/ML VIAL IV PRN (22:56)
[2022-03-09] MEDS ORDERED: Acetaminophen IV 1 GM/100ML 1,000 MG/100 ML BAG IV ONE (22:56)
[2022-03-10] MEDS: Lactated Ringers 1000 ml BAG 1,000 ML IV SCH (00:51)
[2022-03-10] MEDS ORDERED: Sodium Phosphate ADULT ENEMA 133 ML BTL PR ONE (09:13)
[2022-03-10] MEDS ORDERED: Polyethylene Glycol 3350 17 GM PACKET PO SCH (09:16)
[2022-03-10 11:49] VITALS: BP 92/61
== END 2022-03-10 12:10 | disposition home or self-care (01) ==
LOC: ED 08:35 → INTOOBSV 15:01 → EDHOLD 15:01 → SSU 03-10 00:16
PROVIDERS: ADMIT Surgery; ATTEND Surgery